=== PATIENT | male | born 1940 | race Caucasian/White ===

== ENCOUNTER → 2017-05-12 | Day surgery (SDC) | payer BC ==
[2017-04-21 14:01] VITALS: Ht 177.8 cm; Wt 104.5 kg
[~2017-05-12] VITALS: Ht 177.8 cm; Wt 104.5 kg
[~2017-05-12] MED LIST: 500ML BSS 0.3ML EPI 1:1000PF IRRIG ONE; ACETAMINOPHEN 325 MG TAB PO PRN; AMLO-110 PO; AMVISC PLAIN 0.8ML SYRINGE INT OCU ONE; AMVISC PLUS 0.8ML SYRINGE INT OCU ONE; ASPI81TA28 PO; ATOR-26 PO; ATROPINE SULFATE 0.1 MG/ML 5ML SYR IV PRN; BNC/4025 PO; BSS FLUSH ONE; BUPR-79 PO; DTR/5 PO; EpHEDrine SULFATE INJ 50 MG/ML AMP IV PRN; EpINEphrine INJ 1MG/ML AMP 1 MG/ML AMP ONE; FERR325T18 PO; HYDR200T5 PO; LACTATED RINGER'S 1000ML 500 ML IV SCH; LEVO200T6 PO; LIDOCAINE 3.5% OPH GEL PER APPLICATION CHARGE ONE; LIDOCAINE HCL 1% MPF 2 ML VIAL ONE; LORA-741 PO; METO25TA3 PO; METO50TA7 PO; MIDAZOLAM HCL 1 MG/ML 2ML VIAL ONE; MULT-506 PO; NTRGSL/4 UT; OCUCOAT 1 ML SOLN IO ONE; OMEG10007 PO; PANT40TA PO; POVIDONE-IODINE OP SOLN 30 ML BTL ONE; PROPARACAINE 0.5% OP SOLN PER DROP CHARGE OPL SCH; TOBRAMYCIN/DEXAMETHASONE OPH OINT PER APPLN CHARGE ONE
[2017-05-12] MEDS: PHENYLEPHRINE HCL 2.5% OP SOLN PER DROP CHARGE OPL SCH ×2 (09:23→09:33)
[2017-05-12] MEDS: TROPICAMIDE 1% OP SOLN PER DROP CHARGE OPL SCH ×2 (09:23→09:33)
[2017-05-12] MEDS: KETOROLAC 0.5% OP SOLN PER DROP CHARGE OPL SCH ×2 (09:24→09:35)
[2017-05-12] MEDS: CYCLOPENTOLATE HCL 1% OP SOLN PER DROP CHARGE OPL SCH ×2 (09:24→09:34)
[2017-05-12] MEDS: GATIFLOXACIN OP SOLN PER DROP CHARGE OPL SCH ×2 (09:26→09:36)
--- NOTE | 2017-05-12 09:58 | History & Physical Bridge - SC ---
H&P Re-Evaluation Bridge Note: I have examined the patient, reviewed the History & Physical and in the interval since the performance of the History & Physical I have noted the following changes of clinical significance: Diagnosis: Left Cataract Procedure: Left Cataract Removal with Lens Implant No changes noted
--- NOTE | 2017-05-12 10:30 | Discharge Instructions-SurgCtr ---
Discharge Instructions Date of Service May 12, 2017. Visit Reason for Visit: Left Cataract Discharge Discharge Diagnosis / Problem: cataract Discharge Goals Goal(s): Improve function Activity Recommendations Activity Limitations: per Instructions/Follow-up section Anesthesia . Post Anesthesia Instructions: If you have had General Anesthesia or IV Sedation: * Do not drive today. * Resume driving when surgeon permits. * Do not make important decisions or sign legal documents today. * Call surgeon for: 1. Temperature elevations greater than 101 degrees F. 2. Uncontrollable pain. 3. Excessive bleeding. 4. Persistent nausea and vomiting. 5. Medication intolerance (nausea, vomiting or rash). * For nausea and vomiting use only clear liquids such as: tea, soda, bouillon until nausea subsides, then gradually increase diet as tolerated. * If you have any concerns or questions, call your surgeon's office. If physician is unavailable and it is an emergency, call 911 or go to the nearest emergency room. . Diet Recommendations Home Diet: resume previous diet Procedures Procedures Performed: Left Cataract Phacoemulsification with Intraocular Lens Implant; Toric Lens Pending Studies Studies pending at discharge: no Medical Emergencies . Who to Call and When: Medical Emergencies: If at any time you feel your situation is an emergency, please call 911 immediately. . Non-Emergent Contact Non-Emergency issues call your: Exercise Specialist . . "Provider Documentation" section prepared by Newton Molina. .
[2017-05-12 10:32] VITALS: TEMP 36.2
--- NOTE | 2017-05-12 10:32 | [facility] Operative Report ---
Operative Report Date of Service May 12, 2017. Operative Report 1. PREOPERATIVE DIAGNOSIS: Cataract of the left eye. 2. POSTOPERATIVE DIAGNOSIS: Same. 3. PROCEDURE: Phacoemulsification with intraocular lens implantation of the left eye. SURGEON: Dr. Newton Molina. ANESTHESIA: Topical Lidocaine gel, 1% Non- Preserved intracameral Lidocaine, and monitored intravenous sedation. INDICATIONS FOR THE PROCEDURE: The patient is a 77 - year-old male with a history of cataract of the left eye causing significant visual impairment. The details of the proposed procedure were explained to the patient who asked appropriate questions and following discussion of all risks, benefits and alternatives agreed to have the procedure done. Patient had corneal astigmatism and therefore elected to have a toric lens placed. 4. OPERATION AND FINDINGS: DESCRIPTION OF PROCEDURE: After informed consent was obtained, the patient was placed in an upright position and the cornea was marked at 175 degrees using the Tamr corneal marking tool. The patient was brought to the Operating Room at the [facility]. The patient was placed in a supine position and then the left eye was prepped and draped in the usual sterile fashion for intraocular surgery. A drop of topical Lidocaine gel was placed in the operative eye. A wire lid speculum was then placed in the fornices. A corneal paracentesis was then created temporally. The Non-Preserved Lidocaine was then instilled into the anterior chamber. The anterior chamber was then pressurized with viscoelastic. A 2.0 mm clear corneal incision was then created temporally. A cystotome was inserted into the anterior chamber and used to create a tear in the anterior lens capsule. This capsular tear was then used to create a small flap and the flap was dragged in a counterclockwise direction in order to create a continuous curvilinear capsulorrhexis. Hydrodissection was accomplished with balanced salt solution. Phacoemulsification of the lens nucleus was then performed in a standard divide- and-conquer technique. The phaco time was 28 seconds with an average power of 11 %. The remaining cortical material was removed using irrigation aspiration. The capsular bag was then filled with viscoelastic. A Adan [id number] +19.5 diopters lens was then loaded into the injector and injected into the capsular bag. The lens was aligned with the previously made corneal husain. The remaining viscoelastic was removed with the irrigation aspiration handpiece. The wound was hydrated and then checked and found to be watertight. The intraocular pressure was checked and found to be adequate. The wire lid speculum was removed and the patient's face was cleaned and dried. TobraDex ointment was placed in the inferior fornix. The patient was discharged to the Recovery Room having tolerated the procedure well. There were no complications. The patient will be seen tomorrow in the office for follow-up. I attest to the content of the Intraoperative Record and any orders documented therein. Any exceptions are noted below.
[2017-05-12 10:55] VITALS: BP 126/73; PULSE 58; O2SAT 97
--- NOTE | 2017-05-12 11:05 | Anesthesiology Progress Note ---
Anesthesia Post Op Note Date & Time May 12, 2017 at 11:04 Vital Signs Pain Intensity: 0 Vital Signs Past 12 Hours Date Time Temp Pulse Resp B/P (MAP) Pulse Ox O2 Delivery O2 Flow Rate FiO2 05/12/17 10:55 58 18 126/73 (90) 97 Room Air 05/12/17 10:32 36.2 58 18 130/73 (92) 98 Room Air 05/12/17 09:07 36.9 59 22 131/78 (95) 98 Room Air Notes Mental Status: alert / awake / arousable, participated in evaluation Nausea / Vomiting: adequately controlled Pain: adequately controlled Airway Patency, RR, SpO2: stable & adequate BP & HR: stable & adequate Hydration State: stable & adequate Anesthetic Complications: no major complications apparent
== END | disposition home or self-care (01) ==
LOC: X.SURG 08:54
PROVIDERS: ATTEND Ophthalmology
DX: H26.9 Unspecified cataract (principal); G47.33 Obstructive sleep apnea (adult) (pediatric); K21.9 Gastro-esophageal reflux disease without esophagitis; I65.29 Occlusion and stenosis of unspecified carotid artery; K29.70 Gastritis, unspecified, without bleeding; R73.03 Prediabetes; M06.9 Rheumatoid arthritis, unspecified; E78.2 Mixed hyperlipidemia; F32.9 Major depressive disorder, single episode, unspecified; E66.9 Obesity, unspecified; I25.10 Atherosclerotic heart disease of native coronary artery without angina pectoris; N40.0 Benign prostatic hyperplasia without lower urinary tract symptoms; I35.0 Nonrheumatic aortic (valve) stenosis; Z95.1 Presence of aortocoronary bypass graft; Z79.82 Long term (current) use of aspirin

== ENCOUNTER → 2017-06-23 | Day surgery (SDC) | payer BC ==
[2017-05-19 14:41] VITALS: Ht 177.8 cm; Wt 104.5 kg
[~2017-06-23] VITALS: Ht 177.8 cm; Wt 104.5 kg
[~2017-06-23] MED LIST changes: -AMVISC PLAIN 0.8ML SYRINGE INT OCU ONE; -PROPARACAINE 0.5% OP SOLN PER DROP CHARGE OPL SCH; +PROPARACAINE 0.5% OP SOLN PER DROP CHARGE OPR SCH
[2017-06-23] MEDS: PHENYLEPHRINE HCL 2.5% OP SOLN PER DROP CHARGE OPR SCH ×2 (06:36→06:41)
[2017-06-23] MEDS: TROPICAMIDE 1% OP SOLN PER DROP CHARGE OPR SCH ×2 (06:37→06:42)
[2017-06-23] MEDS: CYCLOPENTOLATE HCL 1% OP SOLN PER DROP CHARGE OPR SCH ×2 (06:38→06:43)
[2017-06-23] MEDS: KETOROLAC 0.5% OP SOLN PER DROP CHARGE OPR SCH ×2 (06:39→06:44)
[2017-06-23] MEDS: GATIFLOXACIN OP SOLN PER DROP CHARGE OPR SCH ×2 (06:40→06:55)
--- NOTE | 2017-06-23 07:08 | History & Physical Bridge - SC ---
H&P Re-Evaluation Bridge Note: I have examined the patient, reviewed the History & Physical and in the interval since the performance of the History & Physical I have noted the following changes of clinical significance: No changes noted
--- NOTE | 2017-06-23 07:47 | [facility] Operative Report ---
Operative Report Date of Service Jun 23, 2017. Operative Report 1. PREOPERATIVE DIAGNOSIS: Cataract of the right eye. 2. POSTOPERATIVE DIAGNOSIS: Same. 3. PROCEDURE: Phacoemulsification with intraocular lens implantation of the right eye. SURGEON: Dr. Newton Molina. ANESTHESIA: Topical Lidocaine gel, 1% Non- Preserved intracameral Lidocaine, and monitored intravenous sedation. INDICATIONS FOR THE PROCEDURE: The patient is a 77 - year-old male with a history of cataract of the right eye causing significant visual impairment. The details of the proposed procedure were explained to the patient who asked appropriate questions and following discussion of all risks, benefits and alternatives agreed to have the procedure done. 4. OPERATION AND FINDINGS: DESCRIPTION OF PROCEDURE: After informed consent was obtained, the patient was brought to the Operating Room at the [facility]. The patient was placed in a supine position and then the right eye was prepped and draped in the usual sterile fashion for intraocular surgery. A drop of topical Lidocaine gel was placed in the operative eye. A wire lid speculum was then placed in the fornices. A corneal paracentesis was then created temporally. The Non-Preserved Lidocaine was then instilled into the anterior chamber. The anterior chamber was then pressurized with viscoelastic. A 2.0 mm clear corneal incision was then created temporally. A cystotome was inserted into the anterior chamber and used to create a tear in the anterior lens capsule. This capsular tear was then used to create a small flap and the flap was dragged in a counterclockwise direction in order to create a continuous curvilinear capsulorrhexis. Hydrodissection was accomplished with balanced salt solution. Phacoemulsification of the lens nucleus was then performed in a standard [id number] technique. The phaco time was 29 seconds with an average power of 9 %. The remaining cortical material was removed using irrigation aspiration. The capsular bag was then filled with viscoelastic. A Adan [id number] +18.5 diopters lens was then loaded into the injector and injected into the capsular bag. The remaining viscoelastic was removed with the irrigation aspiration handpiece. The wound was hydrated and then checked and found to be watertight. The intraocular pressure was checked and found to be adequate. The wire lid speculum was removed and the patient's face was cleaned and dried. TobraDex ointment was placed in the inferior fornix. The patient was discharged to the Recovery Room having tolerated the procedure well. There were no complications. The patient will be seen tomorrow in the office for follow-up. I attest to the content of the Intraoperative Record and any orders documented therein. Any exceptions are noted below.
--- NOTE | 2017-06-23 07:48 | Discharge Instructions-SurgCtr ---
Discharge Instructions Date of Service Jun 23, 2017. Visit Reason for Visit: Cataract Right Eye Discharge Discharge Diagnosis / Problem: cataract Discharge Goals Goal(s): Improve function Activity Recommendations Activity Limitations: per Instructions/Follow-up section Anesthesia . Post Anesthesia Instructions: If you have had General Anesthesia or IV Sedation: * Do not drive today. * Resume driving when surgeon permits. * Do not make important decisions or sign legal documents today. * Call surgeon for: 1. Temperature elevations greater than 101 degrees F. 2. Uncontrollable pain. 3. Excessive bleeding. 4. Persistent nausea and vomiting. 5. Medication intolerance (nausea, vomiting or rash). * For nausea and vomiting use only clear liquids such as: tea, soda, bouillon until nausea subsides, then gradually increase diet as tolerated. * If you have any concerns or questions, call your surgeon's office. If physician is unavailable and it is an emergency, call 911 or go to the nearest emergency room. . Diet Recommendations Home Diet: resume previous diet Procedures Procedures Performed: Right Cataract Phacoemulsification With Intraocular Lens Implant Pending Studies Studies pending at discharge: no Medical Emergencies . Who to Call and When: Medical Emergencies: If at any time you feel your situation is an emergency, please call 911 immediately. . Non-Emergent Contact Non-Emergency issues call your: Burial Vault Maker . . "Provider Documentation" section prepared by Newton Molina. .
[2017-06-23 07:50] VITALS: TEMP 36.4
--- NOTE | 2017-06-23 07:57 | Anesthesiology Progress Note ---
Anesthesia Post Op Note Date & Time Jun 23, 2017 at 07:56 Vital Signs Pain Intensity: 2.0 Vital Signs Past 12 Hours Date Time Temp Pulse Resp B/P (MAP) Pulse Ox O2 Delivery O2 Flow Rate FiO2 06/23/17 06:30 37 60 16 132/71 (91) 95 Room Air Notes Mental Status: alert / awake / arousable, participated in evaluation Nausea / Vomiting: adequately controlled Pain: adequately controlled Airway Patency, RR, SpO2: stable & adequate BP & HR: stable & adequate Hydration State: stable & adequate Anesthetic Complications: no major complications apparent
[2017-06-23 08:14] VITALS: BP 143/67; PULSE 60; O2SAT 95
== END | disposition home or self-care (01) ==
LOC: X.SURG 06:16
PROVIDERS: ATTEND Ophthalmology
DX: H26.9 Unspecified cataract (principal); E78.5 Hyperlipidemia, unspecified; G47.33 Obstructive sleep apnea (adult) (pediatric); E66.9 Obesity, unspecified; K21.9 Gastro-esophageal reflux disease without esophagitis; E78.6 Lipoprotein deficiency

== ENCOUNTER → 2017-07-21 | Outpatient (CLI) | payer BC ==
[~2017-07-21] VITALS: Ht 177.8 cm; Wt 107.0 kg
[~2017-07-21] MED LIST changes: -500ML BSS 0.3ML EPI 1:1000PF IRRIG ONE; -ACETAMINOPHEN 325 MG TAB PO PRN; -AMVISC PLUS 0.8ML SYRINGE INT OCU ONE; -ATROPINE SULFATE 0.1 MG/ML 5ML SYR IV PRN; -BSS FLUSH ONE; -EpHEDrine SULFATE INJ 50 MG/ML AMP IV PRN; -EpINEphrine INJ 1MG/ML AMP 1 MG/ML AMP ONE; -LACTATED RINGER'S 1000ML 500 ML IV SCH; -LIDOCAINE 3.5% OPH GEL PER APPLICATION CHARGE ONE; -LIDOCAINE HCL 1% MPF 2 ML VIAL ONE; -METO50TA7 PO; +METO50TA8 PO; -MIDAZOLAM HCL 1 MG/ML 2ML VIAL ONE; -OCUCOAT 1 ML SOLN IO ONE; -POVIDONE-IODINE OP SOLN 30 ML BTL ONE; -PROPARACAINE 0.5% OP SOLN PER DROP CHARGE OPR SCH; -TOBRAMYCIN/DEXAMETHASONE OPH OINT PER APPLN CHARGE ONE
[2017-07-21 15:13] VITALS: BP 99/62; PULSE 66; Ht 177.8 cm; Wt 107.0 kg
== END | disposition home or self-care (01) ==
LOC: C.NEUR 13:52
PROVIDERS: ATTEND Internal Medicine Pulmonary Disease
DX: G47.33 Obstructive sleep apnea (adult) (pediatric) (principal); I25.10 Atherosclerotic heart disease of native coronary artery without angina pectoris

== ENCOUNTER 2020-07-02 10:15 | Observation (INO) ==
[2020-07-02] MEDS ORDERED: CEFEPIME 2,000 MG/12.5 ML VIAL IV STA (11:25)
[2020-07-02] MEDS ORDERED: SODIUM CHLORIDE 0.9% 1000ML 1,000 ML IV SCH (11:30)
--- NOTE | 2020-07-02 11:38 | Electrocardiogram Report ---
Test Reason : Blood Pressure : / mmHG Vent. Rate : 060 BPM Atrial Rate : 060 BPM P-R Int : 298 ms QRS Dur : 088 ms QT Int : 440 ms P-R-T Axes : 000 064 067 degrees QTc Int : 440 ms Atrial-paced rhythm with prolonged AV conduction Abnormal ECG When compared with ECG of 19-JUN-2020 10:47, Non-specific change in ST segment in Lateral leads Confirmed by Mikel Chang ([id number]) on 07/02/2020 11:38:10 AM Referred By: REFERRED SELF Confirmed By:Orion Chang
[2020-07-02 12:06] LABS: Hemoglobin 8.1 g/dL (14.0-18.0); Mean Corpuscular Hemoglobin 30.3 pg (25-34); Mean Corpuscular Hgb Conc 33.8 g/dL (32-36); Mean Corpuscular Volume 89.9 fL (80-100); Mean Platelet Volume 10.7 fL (7.4-10.4); Platelet Count 100 K/uL (130-400); RDW Coefficient of Variation 13.4 % (11.5-14.5); RDW Standard Deviation 44.1 fL (36.4-46.3); Red Blood Count 2.67 M/uL (4.7-6.1); White Blood Count 2.66 K/uL (4.8-10.8)
--- NOTE | 2020-07-02 12:15 | XRay Report ---
XR chest 1V portable HISTORY: 80 years-old Male fever acute fever COMPARISON: Chest radiograph 06/19/2020 TECHNIQUE: Portable AP view of the chest FINDINGS: Cardiac silhouette is mildly enlarged. Prior median sternotomy with CABG. Calcified plaque of the tho racic aorta. Left subclavian pacer. Right IJ Smzamj-b-Wfyo catheter. No pneumothorax, pleural effusio n or overt pulmonary edema. Mild interstitial coarsening redemonstrated. Degenerative changes of the shoulders and spine. IMPRESSION: 1. No acute process. 2. Cardiomegaly with chronic interstitial coarsening. ACT 112: Negative or not required by law. The above report was generated using voice recognition software. It may contain grammatical, syntax o r spelling errors. Electronically signed by: aKl Borjas M.D. 07/02/2020 12:13 PM
[2020-07-02 12:18] LABS: Alanine Aminotransferase 150 U/L (12-78); Albumin Level 2.1 gm/dl (3.4-5.0); Aspartate Aminotransferase 56 U/L (15-37); BUN Creatinine Ratio 24.9 (10-20); Blood Urea Nitrogen 24 mg/dl (7-18); Calcium 8.6 mg/dl (8.5-10.1); Carbon Dioxide 24 mmol/L (21-32); Chloride 99 mmol/L (98-107); Est GFR (African American) 85.1; Est GFR (Non-African American) 73.4; Glucose 172 mg/dl (70-99); INR 1.2 (0.9-1.1); Partial Thromboplastin Ratio 1.4; Partial Thromboplastin Time 37.9 Seconds (21.0-31.0); Potassium 4.3 mmol/L (3.5-5.1); Prothrombin Time 12.7 Seconds (9.0-12.0); Sodium 130 mmol/L (136-145)
[2020-07-02 12:23] LABS: Albumin Globulin Ratio 0.6 (0.9-2); Alkaline Phosphatase 111 U/L (45-117); Bilirubin,Total 1.3 mg/dl (0.2-1); Globulin 3.6 gm/dl (2.5-4.0); Total Protein 5.7 gm/dl (6.4-8.2); Troponin I < 0.015 ng/ml (0-0.045)
[2020-07-02 12:24] LABS: Appearance Urine Clear (Clear); Bilirubin Urine Negative (Negative); Blood Urine Negative (Negative); Color Urine Dark Yellow; Glucose Urine UA Negative (Negative); Ketones Urine Negative (Negative); Leukocyte Esterase Urine Negative (Negative); Nitrite Urine Negative (Negative); Protein Urine Negative (Negative); Specific Gravity Urine 1.009 (1.000-1.030); Urobilinogen Urine Negative (Negative); pH Urine 6.5 (4.5-7.5)
[2020-07-02 13:05] LABS: ALC (manual) 0.23 K/uL (1.2-3.4); ANC (manual) 2.43 K/uL (1.4-6.5); Lymphocytes # (manual) 0.23 K/uL (1.2-3.4); Lymphocytes % (manual) 8.7 %; Neutrophils # (manual) 2.43 K/uL (1.4-6.5); Neutrophils % (manual) 91.3 %
--- NOTE | 2020-07-02 13:28 | Ultrasound Report ---
BILATERAL LOWER EXTREMITY VENOUS DOPPLER HISTORY: DVT COMPARISON STUDY: None. FINDINGS: There is normal compressibility, flow, and augmentation within the bilateral lower extremit y deep venous systems. IMPRESSION: No DVT within the right or left lower extremity. ACT 112: Negative or not required by law. Electronically signed by: Kal Borjas M.D. 07/02/2020 1:27 PM
[2020-07-02] MEDS ORDERED: BACLOFEN 10 MG TAB PO ONE (16:42)
--- NOTE | 2020-07-02 16:53 | History & Physical Report ---
Date of Service July 02, 2020 Assessment & Plan (1) Hypotension: Pt has been normo-tensive since arrival to the ED, although initially it was borderline normal Holding HTN meds and monitor Possibly related to recent chemo Baclofen can also cause hypoTN, but pt did not take any doses today Received IVF in the ED and now in the 130s, will hold on further IVF given hx (2) Redness and swelling of lower leg: Appears related to contact with urine soaked Depends in the setting of chemo Given cefepime dose in the ED, will hold on further for now B/L LE US neg for DVT Blood cx pending WBC low in the setting of chemo Procal and lactic acid levels WNL Hem/onc c/s pending for further input related to chemo skin reactions (3) Anemia: 8.1 on admission, most recently was 9.8 Monitor Hemoccult pending (4) Elevated LFTs: Bile stent in place Bili is 1.3 with no bili in urine Monitor LFTs (5) Port-A-Cath in place: Checked by Dr. Elam today and no current issues (6) Anxiety: continue home meds (7) Depression: continue home meds (8) Pancreatic adenocarcinoma: Recently started weekly chemo, last dose was 06/28 (9) Hypertension: Holding benicar and metoprolol given hypoTN (10) Hypothyroidism: continue home meds (11) Diabetes: States pre-DM No hx of medication use (12) Hyperlipidemia: continue home meds (13) GERD (gastroesophageal reflux disease): continue home meds (14) Coronary artery disease: CABG 20 yrs ago Aspirin 81mg (15) BPH w urinary obs/LUTS: continue home meds (16) Aortic stenosis: Monitor with IVF (17) Rheumatoid arthritis: Plaquenil (18) Obstructive sleep apnea: (19) Pacemaker: (20) Intractable hiccups: Recently started on baclofen Hx of needing hospitalization for hiccups lasting over 3 days many years ago (21) DVT prophylaxis: Lovenox, SCDs for DVT proph Pt notes that he is full code, but "nothing heroic". States no mcfp life support, feeding tubes, etc. is present and agrees. History of Present Illness Primary Care Provider: Shemar Gonzalez 80 y/o M who was sent here from Dr. Elam's office for a BP 88/36 upon arrival to the office. Pt was going to see Dr. Elam for a routine follow up on his recently placed port. He was very weak upon arrival and required assistance to get from the car inside. His BP was checked and it was noted as above. Pt states that he had his second dose of chemo for pancreatic cancer on 06/28. His first dose was the prior. He states that since starting chemo, he has felt overall more weak. He has had a few episodes where he was standing and felt he just could no longer support his weight, causing collapse. No LOC or pre-syncope with this. Since the second dose of chemo, his states that he has needed more help with things like getting into and out of the car. He has needed more support with walking. It was also noted Thursday night that pt had a rash on his LE. It has continued to spread. It is worse on the lower LE, but there is a light rash on the upper thighs as well. It does not itch. There is b/l LE swelling that started around the same time, so it feels tight, but no other pain. Pt wears Depends and they feel this is from having skin contact with urine when he pulls the Depends up and down as they were told to not have direct contact with his urine or feces since starting chemo. Pt states he otherwise feels fine. Pt denies fever, SOB, chest pain, abd pain, n/v/c/d. He has been eating without issue. Plan for pt's pancreatic cancer is chemo to shrink the mass, then surgical removal, then further chemo. Pt does have a bile duct stent in place. He had very yellow urine prior to the stent placement. states it is a bit yellow now, but nothing like pre-stent. Pt was recently started on baclofen for issues with intractable hiccups. He has taken 3 doses of this, none today. Allergies Allergy/AdvReac Type Severity Reaction Status Date / Time paroxetine [From Paxil] Allergy Unknown Unknown Verified 07/02/20 09:13 ranolazine [From Ranexa] Allergy Unknown URINARY Verified 07/02/20 09:13 LEAKING PROBLEMS PAULINO Inhibitors AdvReac Mild COUGH Verified 07/02/20 09:13 Sulfa (Sulfonamide AdvReac Mild SICK IN Verified 07/02/20 09:13 Antibiotics) STOMACH tamsulosin AdvReac Mild DIZZINESS Verified 07/02/20 09:13 Home Medications Medication Instructions Recorded Confirmed Type atorvastatin 40 mg PO HS 02/05/18 07/02/20 History hydroxychloroquine 200 mg PO QAM 02/05/18 07/02/20 History lorazepam 0.5 mg PO HS PRN 02/05/18 07/02/20 History metoprolol succinate 1.5 tab PO QAM 02/05/18 07/02/20 History pantoprazole [Protonix] 40 mg PO HS 02/05/18 07/02/20 History vitamin B complex 1 tab PO QAM 02/05/18 07/02/20 History levothyroxine 200 mcg capsule 200 mcg PO QAM 06/12/20 07/02/20 History olmesartan 40 0.5 tab PO QAM tab 06/12/20 07/02/20 History mg-hydrochlorothiazide 12.5 mg tablet omega-3 acid ethyl esters 1 gram 1 cap PO QAM 06/12/20 07/02/20 History capsule sertraline 25 mg tablet 25 mg PO HS 06/12/20 07/02/20 History aspirin 81 mg PO QAM 06/14/20 07/02/20 History baclofen 10 mg PO DAILY 07/02/20 07/02/20 History ferrous gluconate 324 mg PO QAM 07/02/20 07/02/20 History silodosin 4 mg PO DAILY 07/02/20 07/02/20 History Past Med/Surg History Medical History Aortic stenosis MODERATE PER 05/2019 ECHO BPH w urinary obs/LUTS Cancer PANCREATIC CANCER Carotid stenosis History of known severe high-grade external carotid stenosis with less than 50% bilateral internal carotid artery stenosis per 02/2020 cardio note Chest pain NO RECENT ISSUES PER NURSING INTERVIEW CHF (congestive heart failure) Coronary artery disease S/p 4 vessel CABG Diabetes DIET MANAGED GERD (gastroesophageal reflux disease) Hyperlipidemia Hypertension Hypothyroidism Obstructive sleep apnea CPAP-OCC USE Pacemaker PLACED 2016- BIOTRONIK>BRADYCARDIA (CHRONOTROPIC INCOMPETENCE)/FOLLOWED BY DR. COPPOLA Rheumatoid arthritis Surgical History Cardiac pacemaker in situ Difficult airway for intubation HEART CATH PROCEDURE- CATH PROCEDURES FOR 2009, 2011, 2015 REVIEWED- NO DOCUMENTATION OF AIRWAY ISSUES History of anesthesia reaction "GROGGY FOR A FEW DAYS" History of cardiac cath NO STENTS History of cataract surgery LEFT/RIGHT History of colonoscopy History of coronary artery bypass graft X 4 VESSELS 1999 History of esophagogastroduodenoscopy (EGD) History of tonsillectomy History of tooth extraction GUM SURGERY Port-A-Cath in place (06/19/20) Insertion of Mediport with Fluoroscopy Dr. Elam 06/19/2020 Family History Family/Other Family history of diabetes mellitus PATERNAL AUNT Father Heart disease Brother Cancer Mother Cancer Son Family history of diabetes mellitus Other Coronary heart disease Obstructive sleep apnea Social History (Updated 07/02/20 @ 16:57 by Jodie Thakkar DO) Smoking Status: Former smoker Years Smoked: 5; Number of Years Since Quit: 50; Second Hand Exposure: No; Hx Alcohol Use: No Hx Substance Use: No Preferred Language: Spanish Communication Ability: Effective Hvac Design Mechanical Engineer Required: No Beliefs That Will Affect Care: None marital status: Current Living Situation: Spouse current occupational status: retired current occupation: Retired [employer]er Feels Safe at Home: Yes Assistive Devices: Glasses Review of Systems Review of Systems: Pertinent positives and negatives reviewed in HPI--all others negative Physical Exam Constitutional: WD/WN, vitals as above Eyes: normal visual gonzalez by confrontation and + anicteric sclerae Neck: normal visual inspection and trachea midline Respiratory: normal respiratory effort, lungs clear to auscultation Cardiovascular: Rate/Rhythm: regular rate and regular rhythm Gastrointestinal (Abdomen): Inspection/Auscultation: abdomen not distended Percussion/Palpation: abdomen soft; abdomen nontender Musculoskeletal: Head/Neck/Chest: normocephalic and head atraumatic negative for edema, peripheral pulses intact Skin: b/l LE rash that is most pronounced along b/l lower LE. Lines drawn around this dark red, flat rash Automatic Vulcanizing Lead Operator pink rash noted along thighs b/l, dashed lines drawn along this region. Of note, this is a very angular rash on the R later thigh that states is the same as the outline of his pants pocket Neurologic: awake; not confused Speech / Cognition: normal speech Psychiatric: A+Ox3, euthymic affect Results & Data Results & Data ([facility]) Vital Signs (Past 12 Hours) Vital Signs Temp Pulse Resp BP Pulse Ox 07/02/20 15:00 60 16 07/02/20 14:31 61 16 152/99 H 07/02/20 14:30 60 14 07/02/20 13:30 60 14 136/49 L 98 07/02/20 13:28 92/69 L 07/02/20 12:30 60 19 121/52 L 99 07/02/20 12:03 60 20 124/51 L 96 07/02/20 11:53 105/48 L 07/02/20 11:51 60 22 122/43 L 07/02/20 11:49 62 19 106/56 L 07/02/20 11:30 60 20 125/48 L 07/02/20 11:00 61 21 127/49 L 99 07/02/20 10:49 60 25 H 100 07/02/20 10:44 60 26 H 111/45 L 99 07/02/20 10:23 36.1 C L 60 20 110/58 L 97 Diagnostic Findings CXR: neg for acute ECG Additional Comments: Prolonged AV conduction Code Status & VTE Plan Code Status Full code, although pt states no prolonged mechanical life support, feeding tubes, etc VTE Prophylaxis Plan VTE Prophylaxis will be ordered: Yes PG Care Time/CCT Total # of Minutes Spent Total Time Spent with Patient: Total time spent is greater than 50% in coordination of care (as documented) at patient's floor/unit and/or counseling patient: Coding Level of Care Code 83347 OBS Care - Level 3 Diagnoses Hypotension I95.9 Redness and swelling of lower leg M79.89; R23.8 Anemia D64.9 Elevated LFTs R79.89 Port-A-Cath in place Z95.828 Anxiety F41.9 Depression F32.9 Pancreatic adenocarcinoma C25.9 Hypertension I10 Hypothyroidism E03.9 Diabetes E11.9 Hyperlipidemia E78.5 GERD (gastroesophageal reflux disease) K21.9 Coronary artery disease I25.10 BPH w urinary obs/LUTS N40.1; N13.8 Aortic stenosis I35.0 Rheumatoid arthritis M06.9 Obstructive sleep apnea G47.33 Pacemaker Z95.0 Intractable hiccups R06.6 DVT prophylaxis Z29.9
[2020-07-02] MEDS ORDERED: BACLOFEN 10 MG TAB ONE (17:54)
[2020-07-02] MEDS ORDERED: MAGNESIUM HYDROXIDE SUSP 30 ML UDC PO PRN (19:30)
[2020-07-02] MEDS ORDERED: BACLOFEN 10 MG TAB PO PRN ×2 (19:30→21:15)
[2020-07-02] MEDS ORDERED: ACETAMINOPHEN 325 MG TAB PO PRN (19:30)
[2020-07-02] MEDS ORDERED: ONDANSETRON INJ 2 MG/ML 2 ML VIAL IV PRN (19:30)
[2020-07-02] MEDS ORDERED: LORazepam 0.5 MG TAB PO PRN (19:30)
[2020-07-02 20:35] LABS: Albumin Level 2.2 gm/dl (3.4-5.0); Bilirubin Direct 0.6 mg/dl (0-0.2); Bilirubin,Total 1.1 mg/dl (0.2-1); Total Protein 5.9 gm/dl (6.4-8.2)
[2020-07-02] MEDS: SERTRALINE HCL 50 MG TABLET PO SCH (20:52)
[2020-07-02] MEDS: ATORVASTATIN 40 MG TAB PO SCH (20:54)
[2020-07-02] MEDS: PANTOprazole 40 MG TAB PO SCH (20:54)
[2020-07-03] MEDS ORDERED: HEPARIN 100 UNIT/ML 5ML FLUSH FLUSH PRN (00:13)
[2020-07-03 06:11] LABS: Hematocrit (blood only) 22.9 % (42-52); Hemoglobin 7.8 g/dL (14.0-18.0); Mean Corpuscular Hemoglobin 30.7 pg (25-34); Mean Corpuscular Hgb Conc 34.1 g/dL (32-36); Mean Corpuscular Volume 90.2 fL (80-100); RDW Coefficient of Variation 13.6 % (11.5-14.5); RDW Standard Deviation 44.8 fL (36.4-46.3); Red Blood Count 2.54 M/uL (4.7-6.1); White Blood Count 2.08 K/uL (4.8-10.8)
[2020-07-03] MEDS: LEVOTHYROXINE SODIUM 200 MCG TABLET PO SCH (06:15)
[2020-07-03 06:31] LABS: Mean Platelet Volume 11.2 fL (7.4-10.4); Platelet Count 98 K/uL (130-400)
[2020-07-03 06:32] LABS: Eosinophils # (auto) 0.02 K/uL (0-0.5); Giant Platelets 2+; Immature Granulocytes # (auto) 0.01 K/uL (0.00-0.02); Immature Granulocytes % (auto) 0.5 %; Lymphocytes # (auto) 0.58 K/uL (1.2-3.4); Lymphocytes % (auto) 27.9 %; Monocytes # (auto) 0.01 K/uL (0.11-0.59); Monocytes % (auto) 0.5 %; Neutrophils # (auto) 1.46 K/uL (1.4-6.5); Neutrophils % (auto) 70.1 %; Platelet Estimate Decreased (Normal)
[2020-07-03 06:35] LABS: Albumin Level 1.9 gm/dl (3.4-5.0); BUN Creatinine Ratio 21.3 (10-20); Bilirubin Direct 0.5 mg/dl (0-0.2); Calcium 8.5 mg/dl (8.5-10.1); Creatinine Clr Calc Pharmacy 76.5 ml/min; Est GFR (Non-African American) 81.1; Potassium 4.3 mmol/L (3.5-5.1)
[2020-07-03 06:38] LABS: Total Protein 5.5 gm/dl (6.4-8.2)
[2020-07-03] MEDS: ENOXAPARIN INJ 40 MG/0.4 ML SYR SQ SCH (08:08)
[2020-07-03] MEDS: VITAMIN B COMPLEX TAB PO SCH (08:09)
[2020-07-03] MEDS: ASPIRIN 81 MG ECTAB PO SCH (08:09)
[2020-07-03] MEDS: HYDROXYCHLOROQUINE SULFATE 200 MG TAB PO SCH (08:09)
[2020-07-03] MEDS: OMEGA-3 (PURIFIED FISH OIL) 1 GM CAP PO SCH (08:09)
[2020-07-03] MEDS: FERROUS GLUCONATE 324 MG TAB PO SCH (08:09)
--- NOTE | 2020-07-03 08:10 | Hospitalist Progress Note ---
Date of Service July 03, 2020 Assessment & Plan (1) Hypotension: * Pt has been normo-tensive since arrival to the ED, although borderline normal * Holding HTN meds and monitor * Possibly related to recent chemo * Baclofen can also cause hypoTN, but pt did not take any doses [employer] * Received IVF in the ED and now in the 130s, will hold on further IVF given hx -- did appear dry on examination. Improving on AM labs and clinically. * Patient also with low hgb today at 7.8 -- discussed with Dr. Bonilla and will transfuse 1 unit and repeat CBC in AM * BP improved -- currently 125/52 (2) Redness and swelling of lower leg: * Appears related to contact with urine soaked Depends in the setting of chemo * Given cefepime dose in the ED * B/L LE US neg for DVT * Blood cx pending * WBC low in the setting of chemo * Procal 0.32, lactic acid level WNL * Hem/onc c/s pending for further input related to chemo skin reactions -- rec for Dermatology evaluation * Restarted Cefepime given improvement since admission with dose in the ER * Will obtain MRSA nasal swab and add Dapto if positive * Dermatology consulted -- spoke with Dr. Dawson who will see patient this afternoon (3) Anemia: * 8.1 on admission, most recently was 9.8. Likely related to chemo * Monitor * Hemoccult pending * Hgb 7.8 on AM labs -- will order 1 unit PRBC * CBC in AM (4) Elevated LFTs: * Bile stent in place * Bili is 1.3 with no bili in urine * Monitor LFTs -- improving (5) Port-A-Cath in place: * Checked by Dr. Elam 07/02 and no current issues (6) Anxiety: * continue home meds -- sertraline 25mg daily and lorazepam prn (7) Depression: * continue home meds as above (8) Pancreatic adenocarcinoma: * Recently started weekly chemo, last dose was 06/28 * Dr Bonilla on consult as above (9) Hypertension: * Holding benicar and metoprolol given hypoTN * BP 125/52 * Continue to monitor (10) Hypothyroidism: * continue home levothyroxine 200mcg daily * Check TSH with AM labs (11) Diabetes: * States pre-DM * No hx of medication use * Check A1c with Am labs (12) Hyperlipidemia: * continue home atorvastatin 40mg (13) GERD (gastroesophageal reflux disease): * continue home protonix 40mg (14) Coronary artery disease: * CABG 20 yrs ago * Aspirin 81mg * Holding BB, PAULINO (15) BPH w urinary obs/LUTS: * continue home meds (16) Aortic stenosis: * Monitor with IVF * Euvolemic on exam (17) Rheumatoid arthritis: * Plaquenil 200 daily * Follows with Dr. Lauren (18) Obstructive sleep apnea: * CPAP ordered HS -- he states he tries to use this but does sometimes not put it back on at night due to frequently getting up to urinate (19) Pacemaker: noted (20) Intractable hiccups: * Recently started on baclofen * Hx of needing hospitalization for hiccups lasting over 3 days many years ago * Thorazine 12.5mg dose x [address] Bonilla --25mg was too much (21) DVT prophylaxis: * Lovenox, SCDs for DVT proph Pt notes that he is full code, but "nothing heroic". States no mcfp life support, feeding tubes, etc. is present and agrees. Admission and Anticipated Discharge Date Admission Date: July 02, 2020 Supervising Physician Co-Signing Physician Notes PA Supervision Note: I personally saw and examined the patient. I verified all alvarado points and agree with SHANNA Williamson with the following exceptions and/or additions: Pt seen and consented for PRBCs. Reports leg rash and leg swelling started about 4-5 days ago, not itchy but some pain in legs. No fevers/chills/sweats at home. Otherwise feeling much better than yesterday when he felt weak and lightheaded. BPs improved. Is drinking and eating. Has hiccups, requests thorazine. Discussed potential interaction between thorazine and HCQ but he really would like thorazine as it usually cures his hiccups. VSS NAD, AAOx3 RRR no mgr CTAB no wcr ABd +BS soft NT ND Ext 2-3+ pitting edema bilat with purple, nonblanching macular rash in patches on anterior legs, no rash anywhere else on body, no erythema, no vesicles 80 yo M here with hypotension liekly related to anemia and dehydration from recent chemo, also with abnormal rash and LE edema. Dopplers neg for DVT, likely from low albumin in setting of chemotherapy. No need for abx Appreciate DERM consult Transfuse 1 unit PRBCs and follow CBC Consult Nutrition to assist with improving albumin Subjective Patient evaluated this morning. States he is feeling better. No fever, chills, chest pain, shortness of breath, abdominal pain, nausea, vomtiing. Complaints of hiccups. Willing to trial low dose thorazine. On plaquenil for RA and follows locally with Dr. Lauren and has been for past 3 years. Discussed low blood counts and transfusing 1 unit today. Patient inquiring about d/c but willing to wait until tomorrow. Review of Systems Review of Systems: All systems reviewed & are unremarkable except as noted in HPI & below Physical Exam Constitutional: WD/WN, vitals as above Eyes: normal visual gonzalez by confrontation and + anicteric sclerae ENMT: mmm Neck: normal visual inspection and trachea midline Respiratory: normal respiratory effort, lungs clear to auscultation Cardiovascular: Rate/Rhythm: regular rate and regular rhythm Chest (Breasts): Additional Comments: R a-port present Gastrointestinal (Abdomen): Inspection/Auscultation: abdomen not distended Percussion/Palpation: abdomen soft; abdomen nontender Musculoskeletal: Head/Neck/Chest: normocephalic and head atraumatic Skin: erythema, purple/darkened area to b/l LE, swelling-- within markings, receded tender to palpation NVI old healed scabbed area 1cm diameter to left lateral anterior srivastava no other obvious opening/drainage Neurologic: awake; not confused Speech / Cognition: normal speech Psychiatric: A+Ox3, euthymic affect Lymphatic: no cervical or axillary lymphadenopathy Results & Data Results & Data ([facility]) Vital Signs (Past 12 Hours) Vital Signs Temp Pulse Resp BP Pulse Ox 07/03/20 08:07 36.8 C 60 18 125/52 L 99 07/03/20 04:53 36.7 C 92 H 16 115/43 L 98 07/02/20 23:33 36.6 C 57 L 16 129/65 95 07/02/20 20:59 100/55 L Laboratory Results 07/03/20 07/03/20 07/02/20 Range/Units 05:28 05:28 19:51 WBC 2.08 L (4.8-10.8) K/uL RBC 2.54 L (4.7-6.1) M/uL Hgb 7.8 L (14.0-18.0) g/dL Hct 22.9 L (42-52) % MCV 90.2 (80-100) fL MCH 30.7 (25-34) pg MCHC 34.1 (32-36) g/dL RDW Std Deviation 44.8 (36.4-46.3) fL RDW Coeff of Iris 13.6 (11.5-14.5) % Plt Count 98 L (130-400) K/uL MPV 11.2 H (7.4-10.4) fL Immature Gran % (Auto) 0.5 % Neut % (Auto) 70.1 % Lymph % (Auto) 27.9 % Bailey % (Auto) 0.5 % Eos % (Auto) 1.0 % Baso % (Auto) 0.0 % Neut # (Auto) 1.46 (1.4-6.5) K/uL Lymph # (Auto) 0.58 L (1.2-3.4) K/uL Bailey # (Auto) 0.01 L (0.11-0.59) K/uL Eos # (Auto) 0.02 (0-0.5) K/uL Baso # (Auto) 0.00 (0-0.2) K/uL Immature Gran # (Auto) 0.01 (0.00-0.02) K/uL Neutrophils % (Manual) % Lymphocytes % (Manual) % Neutrophils # (Manual) (1.4-6.5) K/uL Total Absolute Neuts (1.4-6.5) K/uL Lymphocytes # (Manual) (1.2-3.4) K/uL Total Abs Lymphocytes (1.2-3.4) K/uL Hyposegmented Neuts Platelet Estimate Decreased L (Normal) Giant Platelets 2+ PT (9.0-12.0) Seconds INR (0.9-1.1) APTT (21.0-31.0) Seconds PTT Ratio Sodium 133 L (136-145) mmol/L Potassium 4.3 (3.5-5.1) mmol/L Chloride 102 (98-107) mmol/L Carbon Dioxide 25 (21-32) mmol/L Anion Gap 6.0 (3-11) BUN 19 H (7-18) mg/dl Creatinine 0.88 (0.6-1.4) mg/dl Est Cr Clr Drug Dosing 76.5 Est GFR ( Amer) 94.0 Est GFR (Non-Af Amer) 81.1 BUN/Creatinine Ratio 21.3 H (10-20) Glucose 171 H (70-99) mg/dl Lactate (0.4-2.0) mmol/L Calcium 8.5 (8.5-10.1) mg/dl Total Bilirubin 1.0 1.1 H (0.2-1) mg/dl Direct Bilirubin 0.5 H 0.6 H (0-0.2) mg/dl AST 39 H 49 H (15-37) U/L ALT 114 H 141 H (12-78) U/L Alkaline Phosphatase 108 113 (45-117) U/L Troponin I (0-0.045) ng/ml Total Protein 5.5 L 5.9 L (6.4-8.2) gm/dl Albumin 1.9 L 2.2 L (3.4-5.0) gm/dl Globulin (2.5-4.0) gm/dl Albumin/Globulin Ratio (0.9-2) Procalcitonin (0-0.5) ng/ml Urine Color Urine Appearance (Clear) Urine pH (4.5-7.5) Ur Specific [place] (1.000-1.030) Urine Protein (Negative) Urine Glucose (UA) (Negative) Urine Ketones (Negative) Urine Blood (Negative) Urine Nitrite (Negative) Urine Bilirubin (Negative) Urine Urobilinogen (Negative) Ur Leukocyte Esterase (Negative) COVID-19 Eval Order SARS-CoV-2, RNA, NAAT (NEGATIVE) 07/02/20 07/02/20 07/02/20 Range/Units 16:15 16:15 12:00 WBC (4.8-10.8) K/uL RBC (4.7-6.1) M/uL Hgb (14.0-18.0) g/dL Hct (42-52) % MCV (80-100) fL MCH (25-34) pg MCHC (32-36) g/dL RDW Std Deviation (36.4-46.3) fL RDW Coeff of Iris (11.5-14.5) % Plt Count (130-400) K/uL MPV (7.4-10.4) fL Immature Gran % (Auto) % Neut % (Auto) % Lymph % (Auto) % Bailey % (Auto) % Eos % (Auto) % Baso % (Auto) % Neut # (Auto) (1.4-6.5) K/uL Lymph # (Auto) (1.2-3.4) K/uL Bailey # (Auto) (0.11-0.59) K/uL Eos # (Auto) (0-0.5) K/uL Baso # (Auto) (0-0.2) K/uL Immature Gran # (Auto) (0.00-0.02) K/uL Neutrophils % (Manual) % Lymphocytes % (Manual) % Neutrophils # (Manual) (1.4-6.5) K/uL Total Absolute Neuts (1.4-6.5) K/uL Lymphocytes # (Manual) (1.2-3.4) K/uL Total Abs Lymphocytes (1.2-3.4) K/uL Hyposegmented Neuts Platelet Estimate (Normal) Giant Platelets PT (9.0-12.0) Seconds INR (0.9-1.1) APTT (21.0-31.0) Seconds PTT Ratio Sodium (136-145) mmol/L Potassium (3.5-5.1) mmol/L Chloride (98-107) mmol/L Carbon Dioxide (21-32) mmol/L Anion Gap (3-11) BUN (7-18) mg/dl Creatinine (0.6-1.4) mg/dl Est Cr Clr Drug Dosing Est GFR ( Amer) Est GFR (Non-Af Amer) BUN/Creatinine Ratio (10-20) Glucose (70-99) mg/dl Lactate (0.4-2.0) mmol/L Calcium (8.5-10.1) mg/dl Total Bilirubin (0.2-1) mg/dl Direct Bilirubin (0-0.2) mg/dl AST (15-37) U/L ALT (12-78) U/L Alkaline Phosphatase (45-117) U/L Troponin I (0-0.045) ng/ml Total Protein (6.4-8.2) gm/dl Albumin (3.4-5.0) gm/dl Globulin (2.5-4.0) gm/dl Albumin/Globulin Ratio (0.9-2) Procalcitonin (0-0.5) ng/ml Urine Color Dark Yellow Urine Appearance Clear (Clear) Urine pH 6.5 (4.5-7.5) Ur Specific [place] 1.009 (1.000-1.030) Urine Protein Negative (Negative) Urine Glucose (UA) Negative (Negative) Urine Ketones Negative (Negative) Urine Blood Negative (Negative) Urine Nitrite Negative (Negative) Urine Bilirubin Negative (Negative) Urine Urobilinogen Negative (Negative) Ur Leukocyte Esterase Negative (Negative) COVID-19 Eval [facility] SARS-CoV-2, RNA, NAAT NEGATIVE (NEGATIVE) 07/02/20 07/02/20 07/02/20 Range/Units 11:45 11:45 11:45 WBC (4.8-10.8) K/uL RBC (4.7-6.1) M/uL Hgb (14.0-18.0) g/dL Hct (42-52) % MCV (80-100) fL MCH (25-34) pg MCHC (32-36) g/dL RDW Std Deviation (36.4-46.3) fL RDW Coeff of Iris (11.5-14.5) % Plt Count (130-400) K/uL MPV (7.4-10.4) fL Immature Gran % (Auto) % Neut % (Auto) % Lymph % (Auto) % Bailey % (Auto) % Eos % (Auto) % Baso % (Auto) % Neut # (Auto) (1.4-6.5) K/uL Lymph # (Auto) (1.2-3.4) K/uL Bailey # (Auto) (0.11-0.59) K/uL Eos # (Auto) (0-0.5) K/uL Baso # (Auto) (0-0.2) K/uL Immature Gran # (Auto) (0.00-0.02) K/uL Neutrophils % (Manual) % Lymphocytes % (Manual) % Neutrophils # (Manual) (1.4-6.5) K/uL Total Absolute Neuts (1.4-6.5) K/uL Lymphocytes # (Manual) (1.2-3.4) K/uL Total Abs Lymphocytes (1.2-3.4) K/uL Hyposegmented Neuts Platelet Estimate (Normal) Giant Platelets PT 12.7 H (9.0-12.0) Seconds INR 1.2 H (0.9-1.1) APTT 37.9 H (21.0-31.0) Seconds PTT Ratio 1.4 Sodium (136-145) mmol/L Potassium (3.5-5.1) mmol/L Chloride (98-107) mmol/L Carbon Dioxide (21-32) mmol/L Anion Gap (3-11) BUN (7-18) mg/dl Creatinine (0.6-1.4) mg/dl Est Cr Clr Drug Dosing Est GFR ( Amer) Est GFR (Non-Af Amer) BUN/Creatinine Ratio (10-20) Glucose (70-99) mg/dl Lactate 1.2 (0.4-2.0) mmol/L Calcium (8.5-10.1) mg/dl Total Bilirubin (0.2-1) mg/dl Direct Bilirubin (0-0.2) mg/dl AST (15-37) U/L ALT (12-78) U/L Alkaline Phosphatase (45-117) U/L Troponin I (0-0.045) ng/ml Total Protein (6.4-8.2) gm/dl Albumin (3.4-5.0) gm/dl Globulin (2.5-4.0) gm/dl Albumin/Globulin Ratio (0.9-2) Procalcitonin 0.32 (0-0.5) ng/ml Urine Color Urine Appearance (Clear) Urine pH (4.5-7.5) Ur Specific [place] (1.000-1.030) Urine Protein (Negative) Urine Glucose (UA) (Negative) Urine Ketones (Negative) Urine Blood (Negative) Urine Nitrite (Negative) Urine Bilirubin (Negative) Urine Urobilinogen (Negative) Ur Leukocyte Esterase (Negative) COVID-19 Eval Order SARS-CoV-2, RNA, NAAT (NEGATIVE) 07/02/20 07/02/20 Range/Units 11:45 11:45 WBC 2.66 L (4.8-10.8) K/uL RBC 2.67 L (4.7-6.1) M/uL Hgb 8.1 L (14.0-18.0) g/dL Hct 24.0 L (42-52) % MCV 89.9 (80-100) fL MCH 30.3 (25-34) pg MCHC 33.8 (32-36) g/dL RDW Std Deviation 44.1 (36.4-46.3) fL RDW Coeff of Iris 13.4 (11.5-14.5) % Plt Count 100 L (130-400) K/uL MPV 10.7 H (7.4-10.4) fL Immature Gran % (Auto) % Neut % (Auto) % Lymph % (Auto) % Bailey % (Auto) % Eos % (Auto) % Baso % (Auto) % Neut # (Auto) (1.4-6.5) K/uL Lymph # (Auto) (1.2-3.4) K/uL Bailey # (Auto) (0.11-0.59) K/uL Eos # (Auto) (0-0.5) K/uL Baso # (Auto) (0-0.2) K/uL Immature Gran # (Auto) (0.00-0.02) K/uL Neutrophils % (Manual) 91.3 % Lymphocytes % (Manual) 8.7 % Neutrophils # (Manual) 2.43 (1.4-6.5) K/uL Total Absolute Neuts 2.43 (1.4-6.5) K/uL Lymphocytes # (Manual) 0.23 L (1.2-3.4) K/uL Total Abs Lymphocytes 0.23 L (1.2-3.4) K/uL Hyposegmented Neuts 1+ Platelet Estimate (Normal) Giant Platelets PT (9.0-12.0) Seconds INR (0.9-1.1) APTT (21.0-31.0) Seconds PTT Ratio Sodium 130 L (136-145) mmol/L Potassium 4.3 (3.5-5.1) mmol/L Chloride 99 (98-107) mmol/L Carbon Dioxide 24 (21-32) mmol/L Anion Gap 7.0 (3-11) BUN 24 H (7-18) mg/dl Creatinine 0.97 (0.6-1.4) mg/dl Est Cr Clr Drug Dosing Not Reportable Est GFR ( Amer) 85.1 Est GFR (Non-Af Amer) 73.4 BUN/Creatinine Ratio 24.9 H (10-20) Glucose 172 H (70-99) mg/dl Lactate (0.4-2.0) mmol/L Calcium 8.6 (8.5-10.1) mg/dl Total Bilirubin 1.3 H (0.2-1) mg/dl Direct Bilirubin (0-0.2) mg/dl AST 56 H (15-37) U/L ALT 150 H (12-78) U/L Alkaline Phosphatase 111 (45-117) U/L Troponin I < 0.015 (0-0.045) ng/ml Total Protein 5.7 L (6.4-8.2) gm/dl Albumin 2.1 L (3.4-5.0) gm/dl Globulin 3.6 (2.5-4.0) gm/dl Albumin/Globulin Ratio 0.6 L (0.9-2) Procalcitonin (0-0.5) ng/ml Urine Color Urine Appearance (Clear) Urine pH (4.5-7.5) Ur Specific [place] (1.000-1.030) Urine Protein (Negative) Urine Glucose (UA) (Negative) Urine Ketones (Negative) Urine Blood (Negative) Urine Nitrite (Negative) Urine Bilirubin (Negative) Urine Urobilinogen (Negative) Ur Leukocyte Esterase (Negative) COVID-19 Eval Order SARS-CoV-2, RNA, NAAT (NEGATIVE) PG Care Time/CCT Total # of Minutes Spent Total Time Spent with Patient: Total time spent is greater than 50% in coordination of care (as documented) at patient's floor/unit and/or counseling patient: Coding Level of Care Code 90294 Subseq Hosp Care Lvl 3 Diagnoses Hypotension I95.9 Redness and swelling of lower leg M79.89; R23.8 Anemia D64.9 Elevated LFTs R79.89 Port-A-Cath in place Z95.828 Anxiety F41.9 Depression F32.9 Pancreatic adenocarcinoma C25.9 Hypertension I10 Hypothyroidism E03.9 Diabetes E11.9 Hyperlipidemia E78.5 GERD (gastroesophageal reflux disease) K21.9 Coronary artery disease I25.10 BPH w urinary obs/LUTS N40.1; N13.8 Aortic stenosis I35.0 Rheumatoid arthritis M06.9 Obstructive sleep apnea G47.33 Pacemaker Z95.0 Intractable hiccups R06.6 DVT prophylaxis Z29.9
[2020-07-03] MEDS ORDERED: SODIUM CHLORIDE 0.9% 250 ML IV PRN (08:18)
[2020-07-03] MEDS ORDERED: CEFEPIME 2,000 MG in SYRINGE 0 ML IV SCH (10:00)
--- NOTE | 2020-07-03 10:14 | Consultation Report ---
DATE OF CONSULTATION: 07/03/2020 REASON FOR CONSULTATION: Hypotension and lower extremity skin rash. HISTORY OF PRESENT ILLNESS: The patient is a very pleasant 80-year-old gentleman currently managed by Dr. Jefferson Frost for recently diagnosed locally advanced pancreatic cancer. He is in the midst of receiving neoadjuvant Abraxane and gemcitabine, which was administered on 06/21 and 06/28 respectively. Apparently was in Dr. Elam office yesterday and was found to be hypotensive. The patient has described a few issues, some that occurred before chemotherapy and more specifically persistent hiccups, which developed after his first course. He admits to a transient periods of weakness where while standing, had an immediate feeling no longer able to support his weight with subsequent fall. He denies loss of consciousness or preceding symptoms like lightheadedness and dizziness. Apparently after his last dose of chemotherapy, he had noticed a lacy erythematous rash on his lower extremities bilaterally. He denies any pruritus but feels both of the areas of concern began at the same time. The patient denies any other constitute of symptoms, for the most part has done reasonably well with the exception of hiccups. He had contacted the service over the weekend while I was macroeconomics professor complaining of persistent hiccups. He was prescribed baclofen 10 mg p.o. b.i.d., which has been of some help, but states Thorazine while terribly sedating is probably more effective. The hospitalist service is requesting consultation because this gentleman has unexplained skin rash and drop in blood pressure. PAST MEDICAL HISTORY: Significant for rheumatoid arthritis, status post pacemaker, obstructive sleep apnea, hypothyroidism, hypertension, hyperlipidemia, gastroesophageal reflux disease, borderline diabetes mellitus, coronary artery disease, congestive heart failure, locally advanced pancreatic cancer, aortic stenosis, BPH. PAST SURGICAL HISTORY: Port-A-Cath placement, tooth extraction, tonsillectomy, EGD, coronary bypass grafting x4, colonoscopy, cataract surgery, history of cardiac catheterization, cardiac pacemaker. MEDICATIONS: Prior to admission includes silodosin 4 mg p.o. daily, ferrous gluconate 325 mg p.o. daily, baclofen 10 mg p.o. b.i.d. for hiccups, aspirin 81 mg p.o. daily, sertraline 25 mg p.o. at bedtime, omega-3 fish oil 1 capsule p.o. daily, olmesartan 0.5 tablet p.o. q.a.m., levothyroxine 200 mcg p.o. every day, vitamin B complex 1 tablet p.o. every day, Protonix 40 mg p.o. at bedtime, metoprolol 1.5 tablets p.o. q.a.m., lorazepam 0.5 mg p.o. at bedtime p.r.n., hydroxychloroquine 200 mg p.o. daily, atorvastatin 40 mg p.o. at bedtime. ALLERGIES: PAROXETINE, MENSULINE, PAULINO INHIBITORS, SULFA, TAMSULOSIN. FAMILY HISTORY: Father succumbed to heart disease. His mother succumbed to neoplasia as did his brother. 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 REVIEW OF SYSTEMS: GENERAL: As per HPI. Negative for fevers, chills or sweats. He is not anorexic or losing weight. SKIN: Positive for erythematous lacy rash encompassing his lower extremities below the knees bilaterally. HEENT: Again, negative for headaches, lightheadedness or dizziness. No visual or hearing deficits. No sinus symptoms, sore throat or dysphagia. LYMPH: No history of lymphadenopathy. CARDIAC: History of coronary artery disease. No current angina or palpitation. PULMONARY: Negative for COPD. He is not short of breath, dyspneic or orthopneic. No cough or hemoptysis. GASTROINTESTINAL: Negative for abdominal pain, nausea, vomiting, diarrhea or constipation. MUSCULOSKELETAL: Transient intermittent weakness. No arthralgias. ENDOCRINE: Negative for diabetes or thyroid disease. NEUROLOGIC: Negative for seizure, stroke, or migraine headache. HEMATOLOGIC: Positive for pancytopenia attributable to treatment effect. PHYSICAL EXAMINATION: GENERAL: A very pleasant 80-year-old gentleman, awake, alert and appropriate, in no acute distress. VITAL SIGNS: Temperature 36.8, pulse 60, respiratory rate 18, blood pressure 125/52. SKIN: Warm, dry, noncyanotic without petechia, rash or ecchymosis. HEENT: Head is atraumatic, normocephalic. Eyes: PERRLA, EOMI. Sclerae nonicteric. No conjunctival injection. Nares patent without rhinorrhea or discharge. Throat is clear. Tongue is midline. Mucous membranes are moist. NECK: Supple without JVD or thyromegaly. LYMPHATICS: No cervical, supraclavicular, axillary or inguinal palpable nodes. HEART: Regular rate and rhythm. No clicks, rubs, murmurs or gallops. LUNGS: Clear to auscultation bilaterally. ABDOMEN: Soft, nontender, nondistended, without palpable hepatosplenomegaly. EXTREMITIES: No calf tenderness or swelling. Again, the erythematous rash is now demarcated encompassing bilateral lower extremities below the knee. There are no raised papules or macules. The rash appears vasculitic like. No clubbing, cyanosis or edema. MUSCULOSKELETAL: Strength and pulses are equal in all 4 quadrants. NEUROLOGICALLY: He is awake, alert and oriented x3. Cranial nerves grossly intact. LABORATORY DATA: WBC count 2080, hemoglobin 7.8, platelet count 98,000, absolute neutrophil count 1460. Sodium 133, potassium 4.3, chloride 102, carbon dioxide 25, BUN 19, creatinine 0.88. Liver transaminases mildly elevated, AST 39, ALT 114. Albumin 1.9. IMPRESSION: 1. Hypotension. 2. Bilateral lower extremity rash (dermatitis versus cellulitis). 3. Hypoalbuminemia. 4. Locally advanced pancreatic cancer. PLAN: The patient is a very pleasant 80-year-old gentleman well known to [facility], currently under Dr. Frost's care, recently started combination of Abraxane and gemcitabine received on 06/21 and 06/28 respectively. He had returned to the general surgery office for [facility] followup. Apparently, he was hypotensive and recommended to come to the Emergency Room. The patient has had no other constitute of symptoms with the exception of emergence of bilateral lower extremity erythematous rash which is nonpruritic. The rash appeared approximately 2 days after his second course of therapy on the . The rash does not appear to be atypical drug rash and I have asked the hospitalist to consult Dermatology perhaps as outpatient. He is not exhibiting any signs of emerging infection or cellulitis either. We will speak to Dr. Frost directly regarding chemotherapy moving forward. In my estimation, perhaps giving him one agent versus both agents to see which one may be inciting the cutaneous reaction. His peripheral blood counts are decreased attributable to chemotherapy, and anticipate recovery and they do not warrant intervention at this time. Certainly a concern with his albumin level and need to reinforce protein intake. I anticipate this gentleman's discharge in next 24 hours or so. He is scheduled for his third course of chemotherapy this coming . If there are any further questions or concerns, feel free to contact me at any time.
[2020-07-03] MEDS ORDERED: chlorproMAZINE HCL 25 MG TAB PO ONE (10:24)
--- NOTE | 2020-07-03 11:26 | Electrocardiogram Report ---
Test Reason : Blood Pressure : / mmHG Vent. Rate : 060 BPM Atrial Rate : 060 BPM P-R Int : 288 ms QRS Dur : 086 ms QT Int : 434 ms P-R-T Axes : 000 067 074 degrees QTc Int : 434 ms Atrial-paced rhythm with prolonged AV conduction Abnormal ECG When compared with ECG of 02-JUL-2020 10:54, No significant change was found Confirmed by Mikel Chang ([id number] on 07/03/2020 11:25:28 AM Referred By: REFERRED SELF Confirmed By:Orion Chang
--- NOTE | 2020-07-03 12:42 | Dermatology Consultation ---
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 Exam is not consistent with a vasculitic reaction or a typical drug hypersensitivity reaction. Drugs have been reported to trigger capillaritis, but I cannot find where his current chemotherapeutic agents have been reported. - Optimize volume status. - Optimize nutrition/protein status to minimize 3rd spacing. - Discussed with patient that frequent ambulation + keeping legs elevated above the level of the heart when at rest should help minimize dependent edema in the lower legs. - He would likely benefit from knee-high compression stockings, 10-20mmHg, if no other contraindication from a vascular standpoint. - Given that he is asymptomatic (capillaritis typically is), I would only recommend general moisturization 1-2 times daily with a bland emollient such as Cetaphil cream. Benefit from topical steroids is inconsistent. - Discussed that his erythema seems to be slowly resolving in some peripheral areas, but it will likely leave light brown, bronze discoloration once it resolves. Present on Admission?: Yes History of Present Illness Reason for Consultation: Rash on bilateral legs Requesting Physician: Lela Whipple MD Attending Physician: Lela Whipple MD History of Present Illness Patient is an 80 y/o male admitted to [facility] from Dr. Bravo's office on 07/02/2020 for hypotension and weakness. He has a history of recently diagn osed, locally advanced pancreatic cancer being managed by Dr. Jefferson Frost. He is in the midst of treatment with neoadjuvant Abraxane and gemcitabine, which he has received on 06/21/2020 and 06/28/2020. He states that he has been tolerating treatment well thus far. I have been consulted for evaluation of a rash on the bilateral lower legs. He states that he first noticed the rash on the evening of Thursday06/30/2020 after he removed his pants. He also noticed increased swelling in his lower legs at that time. He reports a history of having some lower extremity swelling on and off in the past, but not to this extent. He denies noticing any itching/burning related to his rash. The rash progressed somewhat over the next 24 hours or so, but then has been relatively stable. He states that he applied some vaseline to the legs at home, but otherwise he did not use any particular treatment. He is not currently on any therapy for it. He denies any history of similar eruption in the past. He denies any involvement or other rashes elsewhere on the body. Upon admission he was noted to be anemic, so he is receiving transfusion today. He did have bilateral LE venous ultrasounds performed at admission that were negative for DVT. He is otherwise feeling well and hopes to go home soon. No other skin complaints. Allergies Allergy/AdvReac Type Severity Reaction Status Date / Time paroxetine [From Paxil] Allergy Unknown Unknown Verified 07/02/20 09:13 ranolazine [From Ranexa] Allergy Unknown URINARY Verified 07/02/20 09:13 LEAKING PROBLEMS PAULINO Inhibitors AdvReac Mild COUGH Verified 07/02/20 09:13 Sulfa (Sulfonamide AdvReac Mild SICK IN Verified 07/02/20 09:13 Antibiotics) STOMACH tamsulosin AdvReac Mild DIZZINESS Verified 07/02/20 09:13 Home Medications Medication Instructions Recorded Confirmed Type atorvastatin 40 mg PO HS 02/05/18 07/02/20 History hydroxychloroquine 200 mg PO QAM 02/05/18 07/02/20 History lorazepam 0.5 mg PO HS PRN 02/05/18 07/02/20 History metoprolol succinate 1.5 tab PO QAM 02/05/18 07/02/20 History pantoprazole [Protonix] 40 mg PO HS 02/05/18 07/02/20 History vitamin B complex 1 tab PO QAM 02/05/18 07/02/20 History levothyroxine 200 mcg capsule 200 mcg PO QAM 06/12/20 07/02/20 History olmesartan 40 0.5 tab PO QAM tab 06/12/20 07/02/20 History mg-hydrochlorothiazide 12.5 mg tablet omega-3 acid ethyl esters 1 gram 1 cap PO QAM 06/12/20 07/02/20 History capsule sertraline 25 mg tablet 25 mg PO HS 06/12/20 07/02/20 History aspirin 81 mg PO QAM 06/14/20 07/02/20 History baclofen 10 mg PO DAILY 07/02/20 07/02/20 History ferrous gluconate 324 mg PO QAM 07/02/20 07/02/20 History silodosin 4 mg PO DAILY 07/02/20 07/02/20 History Patient History Medical History Aortic stenosis MODERATE PER 05/2019 ECHO BPH w urinary obs/LUTS Cancer PANCREATIC CANCER Carotid stenosis History of known severe high-grade external carotid stenosis with less than 50% bilateral internal carotid artery stenosis per 02/2020 cardio note Chest pain NO RECENT ISSUES PER NURSING INTERVIEW CHF (congestive heart failure) Coronary artery disease S/p 4 vessel CABG Diabetes DIET MANAGED GERD (gastroesophageal reflux disease) Hyperlipidemia Hypertension Hypothyroidism Obstructive sleep apnea CPAP-OCC USE Pacemaker PLACED 2016- BIOTRONIK>BRADYCARDIA (CHRONOTROPIC INCOMPETENCE)/FOLLOWED BY DR. COPPOLA Rheumatoid arthritis Surgical History Cardiac pacemaker in situ Difficult airway for intubation HEART CATH PROCEDURE- CATH PROCEDURES FOR 2009, 2011, 2015 REVIEWED- NO DOCUMENTATION OF AIRWAY ISSUES History of anesthesia reaction "GROGGY FOR A FEW DAYS" History of cardiac cath NO STENTS History of cataract surgery LEFT/RIGHT History of colonoscopy History of coronary artery bypass graft X 4 VESSELS 1999 History of esophagogastroduodenoscopy (EGD) History of tonsillectomy History of tooth extraction GUM SURGERY Port-A-Cath in place (06/19/20) Insertion of Mediport with Fluoroscopy Dr. Elam 06/19/2020 Family History Family/Other Family history of diabetes mellitus PATERNAL AUNT Father Heart disease Brother Cancer Mother Cancer Son Family history of diabetes mellitus Other Coronary heart disease Obstructive sleep apnea Social History (Updated 07/02/20 @ 16:57 by Jodie Thakkar DO) Smoking Status: Never smoker Years Smoked: 5; Number of Years Since Quit: 50; Second Hand Exposure: No; Hx Alcohol Use: No Hx Substance Use: No Preferred Language: Somali Communication Ability: Effective Foreign Service Teacher Required: No Beliefs That Will Affect Care: None marital status: Current Living Situation: Spouse current occupational status: retired current occupation: Retired [employer] Other Information That Helps Us Care for You: No Feels Safe at Home: Yes Safety Concerns: Feels Safe At This Time Assistive Devices: Glasses Review of Systems Constitutional: no fever and no fatigue Eyes: no eye pain Ear, Nose, Mouth, Throat: no mouth lesions Integumentary: as per Subjective / HPI Allergy / Immunological: no lip swelling and no tongue swelling Physical Exam Physical Exam: General Appearance: Well developed, well-nourished and in no acute distress Psych: Alert, Oriented and Appropriate Skin Type: 2 Scalp/Hair: No abnormalities noted. Face: No abnormalities noted. Eyelids/Ocular Mucosa: No abnormalities noted. Lips/Teeth/Gums: No abnormalities noted. Neck: No abnormalities noted. Right Lower Extremity: [id number], nonblanchable patches with background nonpalpable petechiae on the srivastava, calf +associated 3+ pitting edema no vesicles/bullae no palpable purpura Left Lower Extremity: [id number], nonblanchable patches with background nonpalpable petechiae on the srivastava, calf +associated 2-3+ pitting edema no vesicles/bullae no palpable purpura Back: No abnormalities noted. Buttocks/Groin/Genitalia: No abnormalities noted. Right Upper Extremity: No abnormalities noted. Left Upper Extremity: No abnormalities noted. Chest/Breast/Axillae: No abnormalities noted. Abdomen: No abnormalities noted. Nails: No abnormalities noted. Results & Data ([facility]) Vital Signs (Past 12 Hours) Vital Signs Temp Pulse Pulse Resp BP BP Pulse Ox 07/03/20 11:55 36.4 C L 60 18 137/61 98 07/03/20 11:50 37.0 C 66 18 132/63 96 07/03/20 11:25 36.7 C 60 16 132/51 L 98 07/03/20 11:10 36.6 C 60 18 150/72 H 98 07/03/20 10:53 36.6 C 60 18 151/76 H 99 07/03/20 08:07 36.8 C 60 18 125/52 L 99 07/03/20 04:53 36.7 C 92 H 16 115/43 L 98 Laboratory Results 07/03/20 07/03/20 07/03/20 Range/Units 09:50 08:41 05:28 WBC (4.8-10.8) K/uL RBC (4.7-6.1) M/uL Hgb (14.0-18.0) g/dL Hct (42-52) % MCV (80-100) fL MCH (25-34) pg MCHC (32-36) g/dL RDW Std Deviation (36.4-46.3) fL RDW Coeff of Iris (11.5-14.5) % Plt Count (130-400) K/uL MPV (7.4-10.4) fL Immature Gran % (Auto) % Neut % (Auto) % Lymph % (Auto) % [place] % (Auto) % Eos % (Auto) % Baso % (Auto) % Neut # (Auto) (1.4-6.5) K/uL Lymph # (Auto) (1.2-3.4) K/uL [place] # (Auto) (0.11-0.59) K/uL Eos # (Auto) (0-0.5) K/uL Baso # (Auto) (0-0.2) K/uL Immature Gran # (Auto) (0.00-0.02) K/uL Neutrophils % (Manual) % Lymphocytes % (Manual) % Neutrophils # (Manual) (1.4-6.5) K/uL Total Absolute Neuts (1.4-6.5) K/uL Lymphocytes # (Manual) (1.2-3.4) K/uL Total Abs Lymphocytes (1.2-3.4) K/uL Hyposegmented Neuts Platelet Estimate (Normal) Giant Platelets Sodium (136-145) mmol/L Potassium (3.5-5.1) mmol/L Chloride (98-107) mmol/L Carbon Dioxide (21-32) mmol/L Anion Gap (3-11) BUN (7-18) mg/dl Creatinine (0.6-1.4) mg/dl Est Cr Clr Drug Dosing ml/min Est GFR ( Amer) Est GFR (Non-Af Amer) BUN/Creatinine Ratio (10-20) Glucose (70-99) mg/dl Calcium (8.5-10.1) mg/dl Total Bilirubin (0.2-1) mg/dl Direct Bilirubin (0-0.2) mg/dl AST (15-37) U/L ALT (12-78) U/L Alkaline Phosphatase (45-117) U/L Total Protein (6.4-8.2) gm/dl Albumin (3.4-5.0) gm/dl Nasal Screen MRSA (PCR) Negative (Negative) COVID-19 Eval Order SARS-CoV-2, RNA, NAAT (NEGATIVE) Blood Type A Positive Blood Type Recheck A Positive Antibody Screen NEGATIVE Crossmatch See Detail 07/03/20 07/03/20 07/02/20 Range/Units 05:28 05:28 19:51 WBC 2.08 L (4.8-10.8) K/uL RBC 2.54 L (4.7-6.1) M/uL Hgb 7.8 L (14.0-18.0) g/dL Hct 22.9 L (42-52) % MCV 90.2 (80-100) fL MCH 30.7 (25-34) pg MCHC 34.1 (32-36) g/dL RDW Std Deviation 44.8 (36.4-46.3) fL RDW Coeff of Iris 13.6 (11.5-14.5) % Plt Count 98 L (130-400) K/uL MPV 11.2 H (7.4-10.4) fL Immature Gran % (Auto) 0.5 % Neut % (Auto) 70.1 % Lymph % (Auto) 27.9 % [place] % (Auto) 0.5 % Eos % (Auto) 1.0 % Baso % (Auto) 0.0 % Neut # (Auto) 1.46 (1.4-6.5) K/uL Lymph # (Auto) 0.58 L (1.2-3.4) K/uL [place] # (Auto) 0.01 L (0.11-0.59) K/uL Eos # (Auto) 0.02 (0-0.5) K/uL Baso # (Auto) 0.00 (0-0.2) K/uL Immature Gran # (Auto) 0.01 (0.00-0.02) K/uL Neutrophils % (Manual) % Lymphocytes % (Manual) % Neutrophils # (Manual) (1.4-6.5) K/uL Total Absolute Neuts (1.4-6.5) K/uL Lymphocytes # (Manual) (1.2-3.4) K/uL Total Abs Lymphocytes (1.2-3.4) K/uL Hyposegmented Neuts Platelet Estimate Decreased L (Normal) Giant Platelets 2+ Sodium 133 L (136-145) mmol/L Potassium 4.3 (3.5-5.1) mmol/L Chloride 102 (98-107) mmol/L Carbon Dioxide 25 (21-32) mmol/L Anion Gap 6.0 (3-11) BUN 19 H (7-18) mg/dl Creatinine 0.88 (0.6-1.4) mg/dl Est Cr Clr Drug Dosing 76.5 ml/min Est GFR ( Amer) 94.0 Est GFR (Non-Af Amer) 81.1 BUN/Creatinine Ratio 21.3 H (10-20) Glucose 171 H (70-99) mg/dl Calcium 8.5 (8.5-10.1) mg/dl Total Bilirubin 1.0 1.1 H (0.2-1) mg/dl Direct Bilirubin 0.5 H 0.6 H (0-0.2) mg/dl AST 39 H 49 H (15-37) U/L ALT 114 H 141 H (12-78) U/L Alkaline Phosphatase 108 113 (45-117) U/L Total Protein 5.5 L 5.9 L (6.4-8.2) gm/dl Albumin 1.9 L 2.2 L (3.4-5.0) gm/dl Nasal Screen MRSA (PCR) (Negative) COVID-19 Eval Order SARS-CoV-2, RNA, NAAT (NEGATIVE) Blood Type Blood Type Recheck Antibody Screen Crossmatch 07/02/20 07/02/20 07/02/20 Range/Units 16:15 16:15 11:45 WBC (4.8-10.8) K/uL RBC (4.7-6.1) M/uL Hgb (14.0-18.0) g/dL Hct (42-52) % MCV (80-100) fL MCH (25-34) pg MCHC (32-36) g/dL RDW Std Deviation (36.4-46.3) fL RDW Coeff of Iris (11.5-14.5) % Plt Count (130-400) K/uL MPV (7.4-10.4) fL Immature Gran % (Auto) % Neut % (Auto) % Lymph % (Auto) % [place] % (Auto) % Eos % (Auto) % Baso % (Auto) % Neut # (Auto) (1.4-6.5) K/uL Lymph # (Auto) (1.2-3.4) K/uL [place] # (Auto) (0.11-0.59) K/uL Eos # (Auto) (0-0.5) K/uL Baso # (Auto) (0-0.2) K/uL Immature Gran # (Auto) (0.00-0.02) K/uL Neutrophils % (Manual) 91.3 % Lymphocytes % (Manual) 8.7 % Neutrophils # (Manual) 2.43 (1.4-6.5) K/uL Total Absolute Neuts 2.43 (1.4-6.5) K/uL Lymphocytes # (Manual) 0.23 L (1.2-3.4) K/uL Total Abs Lymphocytes 0.23 L (1.2-3.4) K/uL Hyposegmented Neuts 1+ Platelet Estimate (Normal) Giant Platelets Sodium (136-145) mmol/L Potassium (3.5-5.1) mmol/L Chloride (98-107) mmol/L Carbon Dioxide (21-32) mmol/L Anion Gap (3-11) BUN (7-18) mg/dl Creatinine (0.6-1.4) mg/dl Est Cr Clr Drug Dosing ml/min Est GFR ( Amer) Est GFR (Non-Af Amer) BUN/Creatinine Ratio (10-20) Glucose (70-99) mg/dl Calcium (8.5-10.1) mg/dl Total Bilirubin (0.2-1) mg/dl Direct Bilirubin (0-0.2) mg/dl AST (15-37) U/L ALT (12-78) U/L Alkaline Phosphatase (45-117) U/L Total Protein (6.4-8.2) gm/dl Albumin (3.4-5.0) gm/dl Nasal Screen MRSA (PCR) (Negative) COVID-19 Eval [facility] SARS-[facility]-2, RNA, NAAT NEGATIVE (NEGATIVE) Blood Type Blood Type Recheck Antibody Screen Crossmatch PG Care Time/CCT Total # of Minutes Spent Total Time Spent with Patient: Total time spent is greater than 50% in coordination of care (as documented) at patient's floor/unit and/or counseling patient: Coding Level of Care Code 66074 Initial Inpt Care Lvl 2 Diagnoses Pigmented purpuric dermatosis L81.7
[2020-07-03] MEDS ORDERED: EUCERIN CR 120 GM JAR EXT PRN (15:02)
[2020-07-03] MEDS: ATORVASTATIN 40 MG TAB PO SCH (20:36)
[2020-07-03] MEDS: PANTOprazole 40 MG TAB PO SCH (20:37)
[2020-07-03] MEDS: SERTRALINE HCL 50 MG TABLET PO SCH (20:37)
[2020-07-03] MEDS: METOPROLOL SUCC 25MG EXT REL TAB PO SCH (21:47)
--- NOTE | 2020-07-03 22:46 | Emergency Department Note ---
Impression & Plan Nonblanching rash, Redness and swelling of lower leg, Pancreatic cancer ED Provider Note NAME: ARLINE GLEASON AGE: 80 SEX: M ARRIVES VIA: Walk-In INFORMANT: Patient, ED PROVIDER(S): Ranad De La Garza MD CHIEF COMPLAINT: Bilateral lower extremity rash, swelling, low blood pressure, pancreatic cancer PLAN: Disposition: Inpatient Condition: Fair Referral: Hospitalist MEDICAL DECISION MAKING: This patient was evaluated and appeared to be in no significant distress. IV access was obtained and laboratory work was drawn. Patient was placed on a cardiac monitor technician and noted to be in an atrially paced rhythm at 60 bpm. Patient's laboratory work reveals a leukopenia with a white blood cell count of 4, anemia with hemoglobin of 8.1 and a thrombocytopenia with platelet count of 100. Patient does have some notable swelling of the bilateral lower extremities. The rash is a nonblanching purpuric type rash but is warm to touch. There is some erythema noted to the mid thigh. Patient was given IV cefepime given his immunocompromise status and chemotherapy however it does not appear to be consistent with a cellulitis given its symmetric bilateral lower extremity presentation. DVT studies of the bilateral lower extremity are negative. Patient's case was discussed with the hospitalist service will evaluate the patient for further management. Patient and are aware of the plan and agree. Triage Nursing notes reviewed. Prior medical records reviewed Vital Signs: reviewed and remarkable for no significant abnormalities Differential diagnosis: Cellulitis, abscess, MRSA infection, DVT, necrotizing fasciitis, dermatitis, drug eruption/chemo reaction, allergic reaction, as well as other pathologies. ER treatment provided: IV cefepime IV normal saline solution Diagnostics interpreted by me: ECG: Atrially paced with prolonged AV conduction at 60 bpm. QTc is 440. No PVC, no PAC. Normal ST segment. T wave flattening noted in the inferior and anterior leads. Normal axis. Cardiac Monitoring: An order for cardiac monitoring was placed and the patient is noted to be in an atrially paced rhythm at 60 bpm. Laboratory studies: See below Imaging studies: XR chest 1V portable HISTORY: 80 years-old Male fever acute fever COMPARISON: Chest radiograph 06/19/2020 TECHNIQUE: Portable AP view of the chest FINDINGS: Cardiac silhouette is mildly enlarged. Prior median sternotomy with CABG. Calcified plaque of the thoracic aorta. Left subclavian pacer. Right IJ [id number] catheter. No pneumothorax, pleural effusion or overt pulmonary edema. Mild interstitial coarsening redemonstrated. Degenerative changes of the shoulders and spine. IMPRESSION: 1. No acute process. 2. Cardiomegaly with chronic interstitial coarsening. ACT 112: Negative or not required by law. The above report was generated using voice recognition software. It may contain grammatical, syntax or spelling errors. Electronically signed by: Kal Borjas M.D. 07/02/2020 12:13 PM Dictated: 07/02/20 1212Transcribed: 07/02/201211 BILATERAL LOWER EXTREMITY VENOUS DOPPLER HISTORY: DVT COMPARISON STUDY: None. FINDINGS: There is normal compressibility, flow, and augmentation within the bilateral lower extremity deep venous systems. IMPRESSION: No DVT within the right or left lower extremity. ACT 112: Negative or not required by law. Electronically signed by: Kal Borjas M.D. 07/02/2020 1:27 PM Dictated: 07/02/20 1322Transcribed: 07/02/201321 Consultation(s): Hospitalist HPI: 80/M arrives for evaluation of a low blood pressure reading at the outpatient surgeon's office today. Patient was there for a routine checkup of his recent port placement. The patient has pancreatic cancer and has been receiving chemotherapy. Patient has been feeling somewhat weak and having d ifficulty with exertion. He states his legs have been swollen recently and complains of a rash. His wonders if it is a contact reaction to the urine in his depends as he has been wearing a depends over the last several days. Patient states his legs are a little sore however he denies any itching or open lesions. Patient has had 2 rounds of chemotherapy. He states he had 2 blood pressures in the 80s at the surgeon's office but denies chest pain or shortness of breath. He denies any recent fevers, vomiting or diarrhea. ROS: See above HPI for pertinent positives & negatives. A total of [10] systems reviewed and were otherwise negative. PAST MEDICAL HISTORY:See Below PAST SURGICAL HISTORY:See Below FAMILY HISTORY:See Below SOCIAL HISTORY:See Below HOME MEDICATIONS:See Below ALLERGIES:See Below VITALS:See Below PHYSICAL EXAMINATION: Vital signs reviewed. General: Chronically ill-appearing 80-year-old male, in no significant distress. HEENT: No scleral icterus, PERRLA, neck supple. Atraumatic. Cardiovascular: Regular rate and rhythm, systolic ejection murmur Pulmonary: Clear to auscultation bilaterally, normal work of breathing. Abdomen: Soft, nontender, nondistended, positive bowel sounds. Musculoskeletal: Atraumatic, no peripheral edema. Right anterior chest with a subclavian port. Wound appears to be intact without overlying erythema or drainage. Neurologic: Patient awake alert and oriented x 3, full strength in all 4 extremities. Cranial nerves 2 through 12 grossly intact. Skin: Warm, dry, 2+ pitting edema to the bilateral lower extremities. There is a nonblanching rash to the bilateral lower extremities to the mid thigh with some mild erythema proximally. It is warm to touch without lymphangitic st reaking or open lesion. It does appear to be purpuric. Randa De La Garza MD Past Med/Surg History Medical History Aortic stenosis MODERATE PER 05/2019 ECHO BPH w urinary obs/LUTS Cancer PANCREATIC CANCER Carotid stenosis History of known severe high-grade external carotid stenosis with less than 50% bilateral internal carotid artery stenosis per 02/2020 cardio note Chest pain NO RECENT ISSUES PER NURSING INTERVIEW CHF (congestive heart failure) Coronary artery disease S/p 4 vessel CABG Diabetes DIET MANAGED GERD (gastroesophageal reflux disease) Hyperlipidemia Hypertension Hypothyroidism Obstructive sleep apnea CPAP-OCC USE Pacemaker PLACED 2016- BIOTRONIK>BRADYCARDIA (CHRONOTROPIC INCOMPETENCE)/FOLLOWED BY DR. COPPOLA Rheumatoid arthritis Surgical History Cardiac pacemaker in situ Difficult airway for intubation HEART CATH PROCEDURE- CATH PROCEDURES FOR 2009, 2011, 2015 REVIEWED- NO DOCUMENTATION OF AIRWAY ISSUES History of anesthesia reaction "GROGGY FOR A FEW DAYS" History of cardiac cath NO STENTS History of cataract surgery LEFT/RIGHT History of colonoscopy History of coronary artery bypass graft X 4 VESSELS 1999 History of esophagogastroduodenoscopy (EGD) History of tonsillectomy History of tooth extraction GUM SURGERY Port-A-Cath in place (06/19/20) Insertion of Mediport with Fluoroscopy Dr. Elam 06/19/2020 Family History Family/Other Family history of diabetes mellitus PATERNAL AUNT Father Heart disease Brother Cancer Mother Cancer Son Family history of diabetes mellitus Other Coronary heart disease Obstructive sleep apnea Social History Smoking Status: Never smoker Years Smoked: 5; Number of Years Since Quit: 50; Second Hand Exposure: No; Hx Alcohol Use: No Hx Substance Use: No Preferred Language: Maltese Communication Ability: Effective Per Diem Nurse Required: No Beliefs That Will Affect Care: None marital status: Current Living Situation: Spouse current occupational status: retired 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 Feels Safe at Home: Yes Assistive Devices: Walker Allergies Allergies Allergy/AdvReac Type Severity Reaction Status Date / Time paroxetine [From Paxil] Allergy Unknown Unknown Verified 07/02/20 09:13 ranolazine [From Ranexa] Allergy Unknown URINARY Verified 07/02/20 09:13 LEAKING PROBLEMS PAULINO Inhibitors AdvReac Mild COUGH Verified 07/02/20 09:13 Sulfa (Sulfonamide AdvReac Mild SICK IN Verified 07/02/20 09:13 Antibiotics) STOMACH tamsulosin AdvReac Mild DIZZINESS Verified 07/02/20 09:13 Home Meds Home Medications Medication Instructions Recorded Confirmed atorvastatin 40 mg PO HS 02/05/18 07/02/20 hydroxychloroquine 200 mg PO QAM 02/05/18 07/02/20 lorazepam 0.5 mg PO HS PRN 02/05/18 07/02/20 metoprolol succinate 1.5 tab PO QAM 02/05/18 07/02/20 pantoprazole [Protonix] 40 mg PO HS 02/05/18 07/02/20 vitamin B complex 1 tab PO QAM 02/05/18 07/02/20 levothyroxine 200 mcg capsule 200 mcg PO QAM 06/12/20 07/02/20 omega-3 acid ethyl esters 1 gram 1 cap PO QAM 06/12/20 07/02/20 capsule sertraline 25 mg tablet 25 mg PO HS 06/12/20 07/02/20 baclofen 10 mg PO DAILY 07/02/20 07/02/20 ferrous gluconate 324 mg PO QAM 07/02/20 07/02/20 silodosin 4 mg PO DAILY 07/02/20 07/02/20 Previous Rx's Medication Instructions Recorded aspirin 81 mg PO Q2D #0 tab 07/04/20 chlorpromazine 25 mg PO Q6H PRN #10 tab 07/04/20 famotidine 20 mg PO BID 30 Days #60 tab 07/04/20 olmesartan-hydrochlorothiazide 0.25 tab PO QAM #0 tab 07/04/20 [Benicar HCT] white petrolatum-mineral oil 1 applic EXT BID PRN #2568 g 07/04/20 [Dermacerin] Results & Data (ED) Vital Signs Vital Signs - 24 hr 07/02/20 15:18 07/02/20 15:30 07/02/20 15:31 Temperature Temperature Source Pulse Rate 60 60 60 Pulse Rate [Right Radial] Pulse Rate from SpO2 Sensor Respiratory Rate 18 13 20 Respiratory Effort / Characteristics Respiratory Depth Respiratory Pattern Blood Pressure 130/77 145/49 H Blood Pressure [Right Arm] Blood Pressure Mean 94 81 Blood Pressure Mean [Right Arm] Blood Pressure Position [Right Arm] Pulse Oximetry Oxygen Delivery Method 07/02/20 16:00 07/02/20 16:40 07/02/20 16:41 Temperature Temperature Source Pulse Rate 60 60 60 Pulse Rate [Right Radial] Pulse Rate from SpO2 Sensor 64 Respiratory Rate 16 20 24 Respiratory Effort / Characteristics Respiratory Depth Respiratory Pattern Blood Pressure 139/56 L 109/56 L Blood Pressure [Right Arm] Blood Pressure Mean 83 73 Blood Pressure Mean [Right Arm] Blood Pressure Position [Right Arm] Pulse Oximetry 94 Oxygen Delivery Method 07/02/20 17:00 07/02/20 17:30 07/02/20 18:00 Temperature Temperature Source Pulse Rate 60 60 60 Pulse Rate [Right Radial] Pulse Rate from SpO2 Sensor Respiratory Rate 22 25 H 22 Respiratory Effort / Characteristics Respiratory Depth Respiratory Pattern Blood Pressure 124/53 L 142/60 H Blood Pressure [Right Arm] Blood Pressure Mean 76 87 Blood Pressure Mean [Right Arm] Blood Pressure Position [Right Arm] Pulse Oximetry Oxygen Delivery Method 07/02/20 18:30 07/02/20 19:31 07/02/20 20:59 Temperature 36.5 C Temperature Source Oral Pulse Rate Pulse Rate [Right Radial] 60 Pulse Rate from SpO2 Sensor Respiratory Rate 17 21 Respiratory Effort / Characteristics Respiratory Depth Respiratory Pattern Blood Pressure 136/67 Blood Pressure [Right Arm] 132/61 100/55 L Blood Pressure Mean 90 Blood Pressure Mean [Right Arm] 84 70 Blood Pressure Position [Right Arm] Pulse Oximetry 98 Oxygen Delivery Method 07/02/20 23:33 07/03/20 04:53 07/03/20 07:30 Temperature 36.6 C 36.7 C Temperature Source Oral Oral Pulse Rate Pulse Rate [Right Radial] 57 L 92 H Pulse Rate from SpO2 Sensor Respiratory Rate 16 16 Respiratory Effort / Characteristics Non-Labored Spontaneous Respiratory Depth Normal Respiratory Pattern Regular Blood Pressure Blood Pressure [Right Arm] 129/65 115/43 L Blood Pressure Mean Blood Pressure Mean [Right Arm] 86 67 Blood Pressure Position [Right Arm] Lying Lying Pulse Oximetry 95 98 Oxygen Delivery Method Room Air Room Air 07/03/20 08:07 Temperature 36.8 C Temperature Source Oral Pulse Rate Pulse Rate [Right Radial] 60 Pulse Rate from SpO2 Sensor Respiratory Rate 18 Respiratory Effort / Characteristics Respiratory Depth Respiratory Pattern Blood Pressure Blood Pressure [Right Arm] 125/52 L Blood Pressure Mean Blood Pressure Mean [Right Arm] 76 Blood Pressure Position [Right Arm] Pulse Oximetry 99 Oxygen Delivery Method Home Medications Current Medication List: was personally reviewed by me Laboratory Data Attestation: I reviewed the patient's lab results. Result diagrams: 07/04/20 05:57 07/04/20 05:57 Lab Results 07/02/20 07/02/20 07/02/20 Range/Units 11:45 11:45 11:45 WBC 2.66 L (4.8-10.8) K/uL RBC 2.67 L (4.7-6.1) M/uL Hgb 8.1 L (14.0-18.0) g/dL Hct 24.0 L (42-52) % MCV 89.9 (80-100) fL MCH 30.3 (25-34) pg MCHC 33.8 (32-36) g/dL RDW Std Deviation 44.1 (36.4-46.3) fL RDW Coeff of Iris 13.4 (11.5-14.5) % Plt Count 100 L (130-400) K/uL MPV 10.7 H (7.4-10.4) fL Immature Gran % (Auto) % Neut % (Auto) % Lymph % (Auto) % [place] % (Auto) % Eos % (Auto) % Baso % (Auto) % Neut # (Auto) (1.4-6.5) K/uL Lymph # (Auto) (1.2-3.4) K/uL [place] # (Auto) (0.11-0.59) K/uL Eos # (Auto) (0-0.5) K/uL Baso # (Auto) (0-0.2) K/uL Immature Gran # (Auto) (0.00-0.02) K/uL Neutrophils % (Manual) 91.3 % Lymphocytes % (Manual) 8.7 % Neutrophils # (Manual) 2.43 (1.4-6.5) K/uL Total Absolute Neuts 2.43 (1.4-6.5) K/uL Lymphocytes # (Manual) 0.23 L (1.2-3.4) K/uL Total Abs Lymphocytes 0.23 L (1.2-3.4) K/uL Hyposegmented Neuts 1+ Platelet Estimate (Normal) Giant Platelets PT (9.0-12.0) Seconds INR (0.9-1.1) APTT (21.0-31.0) Seconds PTT Ratio Sodium 130 L (136-145) mmol/L Potassium 4.3 (3.5-5.1) mmol/L Chloride 99 (98-107) mmol/L Carbon Dioxide 24 (21-32) mmol/L Anion Gap 7.0 (3-11) BUN 24 H (7-18) mg/dl Creatinine 0.97 (0.6-1.4) mg/dl Est Cr Clr Drug Dosing Not Reportable Est GFR ( Amer) 85.1 Est GFR (Non-Af Amer) 73.4 BUN/Creatinine Ratio 24.9 H (10-20) Glucose 172 H (70-99) mg/dl Lactate 1.2 (0.4-2.0) mmol/L Calcium 8.6 (8.5-10.1) mg/dl Total Bilirubin 1.3 H (0.2-1) mg/dl Direct Bilirubin (0-0.2) mg/dl AST 56 H (15-37) U/L ALT 150 H (12-78) U/L Alkaline Phosphatase 111 (45-117) U/L Troponin I < 0.015 (0-0.045) ng/ml Total Protein 5.7 L (6.4-8.2) gm/dl Albumin 2.1 L (3.4-5.0) gm/dl Globulin 3.6 (2.5-4.0) gm/dl Albumin/Globulin Ratio 0.6 L (0.9-2) Procalcitonin (0-0.5) ng/ml Urine Color Urine Appearance (Clear) Urine pH (4.5-7.5) Ur Specific [place] (1.000-1.030) Urine Protein (Negative) Urine Glucose (UA) (Negative) Urine Ketones (Negative) Urine Blood (Negative) Urine Nitrite (Negative) Urine Bilirubin (Negative) Urine Urobilinogen (Negative) Ur Leukocyte Esterase (Negative) Nasal Screen MRSA (PCR) (Negative) COVID-19 Eval Order SARS-CoV-2, RNA, NAAT (NEGATIVE) Blood Type Blood Type Recheck Antibody Screen Crossmatch 07/02/20 07/02/20 07/02/20 Range/Units 11:45 11:45 12:00 WBC (4.8-10.8) K/uL RBC (4.7-6.1) M/uL Hgb (14.0-18.0) g/dL Hct (42-52) % MCV (80-100) fL MCH (25-34) pg MCHC (32-36) g/dL RDW Std Deviation (36.4-46.3) fL RDW Coeff of Iris (11.5-14.5) % Plt Count (130-400) K/uL MPV (7.4-10.4) fL Immature Gran % (Auto) % Neut % (Auto) % Lymph % (Auto) % [place] % (Auto) % Eos % (Auto) % Baso % (Auto) % Neut # (Auto) (1.4-6.5) K/uL Lymph # (Auto) (1.2-3.4) K/uL [place] # (Auto) (0.11-0.59) K/uL Eos # (Auto) (0-0.5) K/uL Baso # (Auto) (0-0.2) K/uL Immature Gran # (Auto) (0.00-0.02) K/uL Neutrophils % (Manual) % Lymphocytes % (Manual) % Neutrophils # (Manual) (1.4-6.5) K/uL Total Absolute Neuts (1.4-6.5) K/uL Lymphocytes # (Manual) (1.2-3.4) K/uL Total Abs Lymphocytes (1.2-3.4) K/uL Hyposegmented Neuts Platelet Estimate (Normal) Giant Platelets PT 12.7 H (9.0-12.0) Seconds INR 1.2 H (0.9-1.1) APTT 37.9 H (21.0-31.0) Seconds PTT Ratio 1.4 Sodium (136-145) mmol/L Potassium (3.5-5.1) mmol/L Chloride (98-107) mmol/L Carbon Dioxide (21-32) mmol/L Anion Gap (3-11) BUN (7-18) mg/dl Creatinine (0.6-1.4) mg/dl Est Cr Clr Drug Dosing Est GFR ( Amer) Est GFR (Non-Af Amer) BUN/Creatinine Ratio (10-20) Glucose (70-99) mg/dl Lactate (0.4-2.0) mmol/L Calcium (8.5-10.1) mg/dl Total Bilirubin (0.2-1) mg/dl Direct Bilirubin (0-0.2) mg/dl AST (15-37) U/L ALT (12-78) U/L Alkaline Phosphatase (45-117) U/L Troponin I (0-0.045) ng/ml Total Protein (6.4-8.2) gm/dl Albumin (3.4-5.0) gm/dl Globulin (2.5-4.0) gm/dl Albumin/Globulin Ratio (0.9-2) Procalcitonin 0.32 (0-0.5) ng/ml Urine Color Dark Yellow Urine Appearance Clear (Clear) Urine pH 6.5 (4.5-7.5) Ur Specific [place] 1.009 (1.000-1.030) Urine Protein Negative (Negative) Urine Glucose (UA) Negative (Negative) Urine Ketones Negative (Negative) Urine Blood Negative (Negative) Urine Nitrite Negative (Negative) Urine Bilirubin Negative (Negative) Urine Urobilinogen Negative (Negative) Ur Leukocyte Esterase Negative (Negative) Nasal Screen MRSA (PCR) (Negative) COVID-19 Eval Order SARS-CoV-2, RNA, NAAT (NEGATIVE) Blood Type Blood Type Recheck Antibody Screen Crossmatch 07/02/20 07/02/20 07/02/20 Range/Units 16:15 16:15 19:51 WBC (4.8-10.8) K/uL RBC (4.7-6.1) M/uL Hgb (14.0-18.0) g/dL Hct (42-52) % MCV (80-100) fL MCH (25-34) pg MCHC (32-36) g/dL RDW Std Deviation (36.4-46.3) fL RDW Coeff of Iris (11.5-14.5) % Plt Count (130-400) K/uL MPV (7.4-10.4) fL Immature Gran % (Auto) % Neut % (Auto) % Lymph % (Auto) % [place] % (Auto) % Eos % (Auto) % Baso % (Auto) % Neut # (Auto) (1.4-6.5) K/uL Lymph # (Auto) (1.2-3.4) K/uL [place] # (Auto) (0.11-0.59) K/uL Eos # (Auto) (0-0.5) K/uL Baso # (Auto) (0-0.2) K/uL Immature Gran # (Auto) (0.00-0.02) K/uL Neutrophils % (Manual) % Lymphocytes % (Manual) % Neutrophils # (Manual) (1.4-6.5) K/uL Total Absolute Neuts (1.4-6.5) K/uL Lymphocytes # (Manual) (1.2-3.4) K/uL Total Abs Lymphocytes (1.2-3.4) K/uL Hyposegmented Neuts Platelet Estimate (Normal) Giant Platelets PT (9.0-12.0) Seconds INR (0.9-1.1) APTT (21.0-31.0) Seconds PTT Ratio Sodium (136-145) mmol/L Potassium (3.5-5.1) mmol/L Chloride (98-107) mmol/L Carbon Dioxide (21-32) mmol/L Anion Gap (3-11) BUN (7-18) mg/dl Creatinine (0.6-1.4) mg/dl Est Cr Clr Drug Dosing Est GFR ( Amer) Est GFR (Non-Af Amer) BUN/Creatinine Ratio (10-20) Glucose (70-99) mg/dl Lactate (0.4-2.0) mmol/L Calcium (8.5-10.1) mg/dl Total Bilirubin 1.1 H (0.2-1) mg/dl Direct Bilirubin 0.6 H (0-0.2) mg/dl AST 49 H (15-37) U/L ALT 141 H (12-78) U/L Alkaline Phosphatase 113 (45-117) U/L Troponin I (0-0.045) ng/ml Total Protein 5.9 L (6.4-8.2) gm/dl Albumin 2.2 L (3.4-5.0) gm/dl Globulin (2.5-4.0) gm/dl Albumin/Globulin Ratio (0.9-2) Procalcitonin (0-0.5) ng/ml Urine Color Urine Appearance (Clear) Urine pH (4.5-7.5) Ur Specific [place] (1.000-1.030) Urine Protein (Negative) Urine Glucose (UA) (Negative) Urine Ketones (Negative) Urine Blood (Negative) Urine Nitrite (Negative) Urine Bilirubin (Negative) Urine Urobilinogen (Negative) Ur Leukocyte Esterase (Negative) Nasal Screen MRSA (PCR) (Negative) COVID-19 Eval Order Covid19 [facility] SARS-CoV-2, RNA, NAAT NEGATIVE (NEGATIVE) Blood Type Blood Type Recheck Antibody Screen Crossmatch 07/03/20 07/03/20 07/03/20 Range/Units 05:28 05:28 05:28 WBC 2.08 L (4.8-10.8) K/uL RBC 2.54 L (4.7-6.1) M/uL Hgb 7.8 L (14.0-18.0) g/dL Hct 22.9 L (42-52) % MCV 90.2 (80-100) fL MCH 30.7 (25-34) pg MCHC 34.1 (32-36) g/dL RDW Std Deviation 44.8 (36.4-46.3) fL RDW Coeff of Iris 13.6 (11.5-14.5) % Plt Count 98 L (130-400) K/uL MPV 11.2 H (7.4-10.4) fL Immature Gran % (Auto) 0.5 % Neut % (Auto) 70.1 % Lymph % (Auto) 27.9 % [place] % (Auto) 0.5 % Eos % (Auto) 1.0 % Baso % (Auto) 0.0 % Neut # (Auto) 1.46 (1.4-6.5) K/uL Lymph # (Auto) 0.58 L (1.2-3.4) K/uL [place] # (Auto) 0.01 L (0.11-0.59) K/uL Eos # (Auto) 0.02 (0-0.5) K/uL Baso # (Auto) 0.00 (0-0.2) K/uL Immature Gran # (Auto) 0.01 (0.00-0.02) K/uL Neutrophils % (Manual) % Lymphocytes % (Manual) % Neutrophils # (Manual) (1.4-6.5) K/uL Total Absolute Neuts (1.4-6.5) K/uL Lymphocytes # (Manual) (1.2-3.4) K/uL Total Abs Lymphocytes (1.2-3.4) K/uL Hyposegmented Neuts Platelet Estimate Decreased L (Normal) Giant Platelets 2+ PT (9.0-12.0) Seconds INR (0.9-1.1) APTT (21.0-31.0) Seconds PTT Ratio Sodium 133 L (136-145) mmol/L Potassium 4.3 (3.5-5.1) mmol/L Chloride 102 (98-107) mmol/L Carbon Dioxide 25 (21-32) mmol/L Anion Gap 6.0 (3-11) BUN 19 H (7-18) mg/dl Creatinine 0.88 (0.6-1.4) mg/dl Est Cr Clr Drug Dosing 76.5 Est GFR ( Amer) 94.0 Est GFR (Non-Af Amer) 81.1 BUN/Creatinine Ratio 21.3 H (10-20) Glucose 171 H (70-99) mg/dl Lactate (0.4-2.0) mmol/L Calcium 8.5 (8.5-10.1) mg/dl Total Bilirubin 1.0 (0.2-1) mg/dl Direct Bilirubin 0.5 H (0-0.2) mg/dl AST 39 H (15-37) U/L ALT 114 H (12-78) U/L Alkaline Phosphatase 108 (45-117) U/L Troponin I (0-0.045) ng/ml Total Protein 5.5 L (6.4-8.2) gm/dl Albumin 1.9 L (3.4-5.0) gm/dl Globulin (2.5-4.0) gm/dl Albumin/Globulin Ratio (0.9-2) Procalcitonin (0-0.5) ng/ml Urine Color Urine Appearance (Clear) Urine pH (4.5-7.5) Ur Specific [place] (1.000-1.030) Urine Protein (Negative) Urine Glucose (UA) (Negative) Urine Ketones (Negative) Urine Blood (Negative) Urine Nitrite (Negative) Urine Bilirubin (Negative) Urine Urobilinogen (Negative) Ur Leukocyte Esterase (Negative) Nasal Screen MRSA (PCR) (Negative) COVID-19 Eval Order SARS-CoV-2, RNA, NAAT (NEGATIVE) Blood Type Blood Type Recheck A Positive Antibody Screen Crossmatch 07/03/20 07/03/20 Range/Units 08:41 09:50 WBC (4.8-10.8) K/uL RBC (4.7-6.1) M/uL Hgb (14.0-18.0) g/dL Hct (42-52) % MCV (80-100) fL MCH (25-34) pg MCHC (32-36) g/dL RDW Std Deviation (36.4-46.3) fL RDW Coeff of Iris (11.5-14.5) % Plt Count (130-400) K/uL MPV (7.4-10.4) fL Immature Gran % (Auto) % Neut % (Auto) % Lymph % (Auto) % [place] % (Auto) % Eos % (Auto) % Baso % (Auto) % Neut # (Auto) (1.4-6.5) K/uL Lymph # (Auto) (1.2-3.4) K/uL [place] # (Auto) (0.11-0.59) K/uL Eos # (Auto) (0-0.5) K/uL Baso # (Auto) (0-0.2) K/uL Immature Gran # (Auto) (0.00-0.02) K/uL Neutrophils % (Manual) % Lymphocytes % (Manual) % Neutrophils # (Manual) (1.4-6.5) K/uL Total Absolute Neuts (1.4-6.5) K/uL Lymphocytes # (Manual) (1.2-3.4) K/uL Total Abs Lymphocytes (1.2-3.4) K/uL Hyposegmented Neuts Platelet Estimate (Normal) Giant Platelets PT (9.0-12.0) Seconds INR (0.9-1.1) APTT (21.0-31.0) Seconds PTT Ratio Sodium (136-145) mmol/L Potassium (3.5-5.1) mmol/L Chloride (98-107) mmol/L Carbon Dioxide (21-32) mmol/L Anion Gap (3-11) BUN (7-18) mg/dl Creatinine (0.6-1.4) mg/dl Est Cr Clr Drug Dosing Est GFR ( Amer) Est GFR (Non-Af Amer) BUN/Creatinine Ratio (10-20) Glucose (70-99) mg/dl Lactate (0.4-2.0) mmol/L Calcium (8.5-10.1) mg/dl Total Bilirubin (0.2-1) mg/dl Direct Bilirubin (0-0.2) mg/dl AST (15-37) U/L ALT (12-78) U/L Alkaline Phosphatase (45-117) U/L Troponin I (0-0.045) ng/ml Total Protein (6.4-8.2) gm/dl Albumin (3.4-5.0) gm/dl Globulin (2.5-4.0) gm/dl Albumin/Globulin Ratio (0.9-2) Procalcitonin (0-0.5) ng/ml Urine Color Urine Appearance (Clear) Urine pH (4.5-7.5) Ur Specific [place] (1.000-1.030) Urine Protein (Negative) Urine Glucose (UA) (Negative) Urine Ketones (Negative) Urine Blood (Negative) Urine Nitrite (Negative) Urine Bilirubin (Negative) Urine Urobilinogen (Negative) Ur Leukocyte Esterase (Negative) Nasal Screen MRSA (PCR) Negative (Negative) COVID-19 Eval Order SARS-CoV-2, RNA, NAAT (NEGATIVE) Blood Type A Positive Blood Type Recheck Antibody Screen NEGATIVE Crossmatch See Detail Administered Medications Discontinued Medications Aspirin ([facility] 81 Mg Ectab) [facility] [place] Stop: 08/02/20 08:59 Last Admin: 07/04/20 07:56 Dose: 81 mg Documented by: [id number] Admin: 07/03/20 08:09 Dose: 81 mg Documented by: [id number] Atorvastatin Calcium (Atorvastatin 40 Mg Tab) 40 mg PO [facility] Stop: 08/01/20 20:59 Last Admin: 07/03/20 20:36 Dose: 40 mg Documented by: [id number] Admin: 07/02/20 20:54 Dose: 40 mg Documented by: [id number] Baclofen (Baclofen 10 Mg Tab) 10 mg PO BID ONE Stop: 07/02/20 16:43 Last Admin: 07/02/20 20:01 Dose: Not Given Documented by: [id number] Baclofen (Baclofen 10 Mg Tab) Confirm Administered Dose 10 mg .ROUTE .STK-MED ONE Stop: 07/02/20 17:55 Last Admin: 07/02/20 18:19 Dose: 10 mg Documented by: [id number] Baclofen (Baclofen 10 Mg Tab) 10 mg PO BID PRN PRN Reason: hiccups Stop: 08/01/20 19:29 Last Admin: 07/04/20 08:01 Dose: 10 mg Documented by: [id number] Baclofen (Baclofen 10 Mg Tab) 10 mg PO ONE PRN PRN Reason: Hiccups Last Admin: 07/03/20 00:28 Dose: 10 mg Documented by: [id number] Chlorpromazine HCl (Chlorpromazine Hcl 25 Mg Tab) 12.5 mg PO NOW ONE Stop: 07/03/20 10:25 Last Admin: 07/03/20 11:00 Dose: 12.5 mg Documented by: [id number] Chlorpromazine HCl (Chlorpromazine Hcl 25 Mg Tab) 25 mg PO ONE ONE Stop: 07/04/20 10:46 Last Admin: 07/04/20 11:03 Dose: 25 mg Documented by: [id number] Chlorpromazine HCl (Chlorpromazine Hcl 25 Mg Tab) 25 mg PO NOW ONE Stop: 07/04/20 13:27 Last Admin: 07/04/20 14:03 Dose: 25 mg Documented by: [id number] Enoxaparin Sodium (Enoxaparin Inj 40 Mg/0.4 Ml Syr) 40 mg SQ QAM [facility] Stop: 08/02/20 08:59 Last Admin: 07/04/20 07:56 Dose: 40 mg Documented by: [id number] Admin: 07/03/20 08:08 Dose: 40 mg Documented by: [id number] Famotidine (Famotidine 20 Mg Tab) 20 mg PO BID [facility] Stop: 08/03/20 10:44 Last Admin: 07/04/20 11:17 Dose: 20 mg Documented by: [id number] Ferrous Gluconate (Ferrous Gluconate 324 Mg Tab) [facility] [place] Stop: 08/02/20 08:59 Last Admin: 07/04/20 07:55 Dose: 324 mg Documented by: [id number] Admin: 07/03/20 08:09 Dose: 324 mg Documented by: [id number] Fish Oil ([place]-3 (Purified Fish Oil) 1 Gm Cap) [facility] [place] Stop: 08/02/20 08:59 Last Admin: 07/04/20 07:57 Dose: 1 gm Documented by: [id number] Admin: 07/03/20 08:09 Dose: 1 gm Documented by: [id number] Hydroxychloroquine Sulfate (Hydroxychloroquine Sulfate 200 Mg Tab) [facility] [place] Stop: 08/02/20 08:59 Last Admin: 07/04/20 07:56 Dose: 200 mg Documented by: [id number] Admin: 07/03/20 08:09 Dose: 200 mg Documented by: [id number] Sodium Chloride (Nss 1000ml) 1,000 mls @ 125 mls/hr IV .Q8H [facility] Stop: 07/02/20 19:29 Last Infusion: 07/02/20 19:59 Dose: 0 mls/hr Documented by: [id number] Admin: 07/02/20 12:07 Dose: 125 mls/hr Documented by: [id number] Cefepime HCl (Maxipime) 2,000 mg in 12.5 mls @ 3.125 mls/min IV NOW STA Stop: 07/02/20 11:28 Last Admin: 07/02/20 12:26 Dose: 3.125 mls/min Documented by: [id number] Cefepime HCl 2,000 mg/ Syringe 20 mls @ 5 mls/min IV Q8H [facility]; Protocol Stop: 07/10/20 09:59 Last Admin: 07/03/20 09:48 Dose: 5 mls/min Documented by: [id number] Albumin Human (Albumin 25%) 12.5 gm in 50 mls @ 50 mls/hr IV Q1H [facility] Stop: 07/04/20 09:59 Last Infusion: 07/04/20 09:30 Dose: 0 mls/hr Documented by: [id number] Admin: 07/04/20 08:36 Dose: 50 mls/hr Documented by: [id number] Infusion: 07/04/20 08:36 Dose: 50 mls/hr Documented by: [id number] Admin: 07/04/20 07:55 Dose: 50 mls/hr Documented by: [id number] Levothyroxine Sodium (Levothyroxine Sodium 200 Mcg Tablet) 200 mcg PO DAILYBB [facility] Stop: 08/02/20 06:29 Last Admin: 07/04/20 06:14 Dose: 200 mcg Documented by: [id number] Admin: 07/03/20 06:15 Dose: 200 mcg Documented by: [id number] Metoprolol Succinate (Metoprolol Succ 25mg Ext Rel Tab) 37.5 mg PO QAM [facility] Stop: 08/02/20 20:24 Last Admin: 07/04/20 07:57 Dose: 37.5 mg Documented by: [id number] Admin: 07/03/20 21:47 Dose: 37.5 mg Documented by: [id number] Miscellaneous (*Silodosin*Order Awaiting Action) 1 ea N/A QS [facility] Stop: 08/02/20 00:00 Last Admin: 07/04/20 11:33 Dose: Not Given Documented by: [id number] Admin: 07/04/20 07:55 Dose: Not Given Documented by: [id number] Admin: 07/04/20 00:07 Dose: Not Given Documented by: [id number] Admin: 07/03/20 16:00 Dose: Not Given Documented by: [id number] Admin: 07/03/20 08:08 Dose: Not Given Documented by: [id number] Admin: 07/02/20 23:28 Dose: Not Given Documented by: [id number] Multi-Ingredient Cream (Eucerin Cr 120 Gm Jar) 1 appln EXT BID PRN PRN Reason: Rash Stop: 08/02/20 15:01 Last Admin: 07/03/20 16:25 Dose: 1 appln Documented by: [id number] Pantoprazole Sodium (Pantoprazole 40 Mg Tab) 40 mg PO [facility] Stop: 08/01/20 20:59 Last Admin: 07/03/20 20:37 Dose: 40 mg Documented by: [id number] Admin: 07/02/20 20:54 Dose: 40 mg Documented by: [id number] Sertraline HCl (Sertraline Hcl 50 Mg Tablet) 25 mg PO [facility] Stop: 08/01/20 20:59 Last Admin: 07/03/20 20:37 Dose: 25 mg Documented by: [id number] Admin: 07/02/20 20:52 Dose: 25 mg Documented by: [id number] Vitamin B Complex (Vitamin B Complex Tab) [facility] [place] Stop: 08/02/20 08:59 Last Admin: 07/04/20 07:57 Dose: 1 tab Documented by: [id number] Admin: 07/03/20 08:09 Dose: 1 tab Documented by: [id number] Discharge Plan Visit Data Chief Complaint: Hypotension Stated Complaint: BP REALLY LOW,RASH, S/P CHEMO ED Provider: Randa De La Garza Discharge Problem: Nonblanching rash, Redness and swelling of lower leg, Pancreatic cancer Patient Disposition: Admitted As Inpatient Discharge Instructions Interventions: ED Discharge Assessment Last Done: 07/02/20 19:11 Discharge Problem: Pancreatic cancer Qualifiers: Pancreatic malignancy location: unspecified Qualified Code(s): C25.9 - Malignant neoplasm of pancreas, unspecified
[2020-07-04] MEDS: LEVOTHYROXINE SODIUM 200 MCG TABLET PO SCH (06:14)
[2020-07-04 06:34] LABS: Hematocrit (blood only) 25.7 % (42-52); Hemoglobin 8.8 g/dL (14.0-18.0); Mean Corpuscular Hemoglobin 30.6 pg (25-34); Mean Corpuscular Hgb Conc 34.2 g/dL (32-36); Mean Corpuscular Volume 89.2 fL (80-100); RDW Coefficient of Variation 14.1 % (11.5-14.5); RDW Standard Deviation 46.4 fL (36.4-46.3); Red Blood Count 2.88 M/uL (4.7-6.1); White Blood Count 2.66 K/uL (4.8-10.8)
[2020-07-04 06:42] LABS: Mean Platelet Volume 11.2 fL (7.4-10.4); Platelet Count 96 K/uL (130-400)
[2020-07-04 06:56] LABS: Basophils # (auto) 0.01 K/uL (0-0.2); Basophils % (auto) 0.4 %; Eosinophils # (auto) 0.01 K/uL (0-0.5); Eosinophils % (auto) 0.4 %; Immature Granulocytes # (auto) 0.02 K/uL (0.00-0.02); Immature Granulocytes % (auto) 0.8 %; Lymphocytes # (auto) 0.79 K/uL (1.2-3.4); Lymphocytes % (auto) 29.7 %; Monocytes # (auto) 0.06 K/uL (0.11-0.59); Monocytes % (auto) 2.3 %; Neutrophils # (auto) 1.77 K/uL (1.4-6.5); Neutrophils % (auto) 66.4 %
[2020-07-04 06:59] LABS: BUN Creatinine Ratio 17.9 (10-20); Bilirubin Direct 0.6 mg/dl (0-0.2); Calcium 8.9 mg/dl (8.5-10.1); Creatinine Clr Calc Pharmacy 79.5 ml/min; Est GFR (African American) 95.4; Est GFR (Non-African American) 82.3; Potassium 4.3 mmol/L (3.5-5.1)
[2020-07-04 07:09] LABS: Bilirubin,Total 1.1 mg/dl (0.2-1); Thyroid Stimulating Hormone 3.76 uIu/ml (0.300-4.500); Total Protein 5.5 gm/dl (6.4-8.2)
[2020-07-04 07:10] LABS: Estimated Average Glucose 163 mg/dl; Hemoglobin A1C 7.3 % (4.5-5.6)
[2020-07-04] MEDS: ALBUMIN 25% 12.5 GM/50 ML VIAL IV SCH ×2 (07:55→08:36)
[2020-07-04] MEDS: FERROUS GLUCONATE 324 MG TAB PO SCH (07:55)
[2020-07-04] MEDS: ENOXAPARIN INJ 40 MG/0.4 ML SYR SQ SCH (07:56)
[2020-07-04] MEDS: ASPIRIN 81 MG ECTAB PO SCH (07:56)
[2020-07-04] MEDS: HYDROXYCHLOROQUINE SULFATE 200 MG TAB PO SCH (07:56)
[2020-07-04] MEDS: METOPROLOL SUCC 25MG EXT REL TAB PO SCH (07:57)
[2020-07-04] MEDS: OMEGA-3 (PURIFIED FISH OIL) 1 GM CAP PO SCH (07:57)
[2020-07-04] MEDS: VITAMIN B COMPLEX TAB PO SCH (07:57)
--- NOTE | 2020-07-04 09:58 | Electrocardiogram Report ---
Test Reason : Blood Pressure : / mmHG Vent. Rate : 060 BPM Atrial Rate : 060 BPM P-R Int : 278 ms QRS Dur : 088 ms QT Int : 450 ms P-R-T Axes : 058 075 062 degrees QTc Int : 450 ms Atrial-paced rhythm with prolonged AV conduction Abnormal ECG When compared with ECG of 03-JUL-2020 06:34, No significant change was found Confirmed by Mikel Chang ([id number]) on 07/04/2020 9:57:54 AM Referred By: REFERRED SELF Confirmed By:Orion Chang
[2020-07-04] MEDS ORDERED: chlorproMAZINE HCL 25 MG TAB PO ONE ×2 (10:45→13:26)
[2020-07-04] MEDS ORDERED: FAMOTIDINE 20 MG TAB PO SCH (10:45)
--- NOTE | 2020-07-04 12:38 | Consultation Report ---
DATE OF CONSULTATION: 07/04/2020 GASTROINTESTINAL CONSULT NOTE REASON FOR EVALUATION: Heme-positive stool and anemia. HISTORY OF PRESENT ILLNESS: The patient is an 80-year-old who I saw in May in the outpatient clinic with new-onset painless jaundice. An ultrasound had shown a 2-3 cm mass in the head of the pancreas and he was referred to [facility] where he subsequently underwent on 05/14 an ERCP and EUS. The EUS showed a 23 x 17 mm mass in the head of the pancreas that was biopsied and came back positive for adenocarcinoma. 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 His jaundice improved and he has felt much better. He was seen by oncology and surgery, and there were some regional lymph nodes that were enlarged. It was decided to proceed with chemotherapy and he has received 2 rounds of IV chemo on 06/21 and 06/28 with gemcitabine and Abraxane. The patient was seen in followup for an Infusaport placement and was noted to be hypotensive and referred to the hospital where he was admitted. The patient reports no abdominal pain, no blood in his stool. No nausea or vomiting. He does take a baby aspirin. His stool was noted to be heme positive. His anemia was attributed to his chemotherapy. He did have a colonoscopy on 02/17/2018 and three 5 mm polyps, two tubular adenomas and one sessile adenoma were removed, and he had some hemorrhoids. He did have upper endoscopy in early May during his endoscopic evaluation at [facility]; no obvious ulcerations were found. His albumin is low and he has been started on Boost supplements. PHYSICAL EXAMINATION: GENERAL: The patient appears in no acute distress. He is awake, alert and sitting in the bedside chair, eating his lunch. VITAL SIGNS: Blood pressure is 145/66, pulse 58, respirations 18, room air saturations 96%. ABDOMEN: Soft and nontender. EXTREMITIES: Showed some venous stasis in his lower extremities. IMPRESSION AND PLAN: The patient's anemia is due to his chemotherapy. His heme-positive stool is likely from the metal stent or maybe some gastric irritation from his aspirin. I do not think endoscopic intervention is necessary at this time. I would recommend that consideration be given to switching him off aspirin on to some other medication to prevent clots that does not have the potential for gastric irritation and ulceration. I think, as an outpatient, his chemotherapy regimen may need to be adjusted to prevent further side effects.
--- NOTE | 2020-07-04 13:28 | Discharge Summary ---
Date of Service July 04, 2020 Admission HPI Per Admitting Provider 80 y/o M who was sent here from Dr. Elam's office for a BP 88/36 upon arrival to the office. Pt was going to see Dr. Elam for a routine follow up on his recently placed port. He was very weak upon arrival and required assistance to get from the car inside. His BP was checked and it was noted as above. Pt states that he had his second dose of chemo for pancreatic cancer on 06/28. His first dose was the prior. He states that since starting chemo, he has felt overall more weak. He has had a few episodes where he was standing and felt he just could no longer support his weight, causing collapse. No LOC or pre-syncope with this. Since the second dose of chemo, his states that he has needed more help with things like getting into and out of the car. He has needed more support with walking. It was also noted Thursday night that pt had a rash on his LE. It has continued to spread. It is worse on the lower LE, but there is a light rash on the upper thighs as well. It does not itch. There is b/l LE swelling that started around the same time, so it feels tight, but no other pain. Pt wears Depends and they feel this is from having skin contact with urine when he pulls the Depends up and down as they were told to not have direct contact with his urine or feces since starting chemo. Pt states he otherwise feels fine. Pt denies fever, SOB, chest pain, abd pain, n/v/c/d. He has been eating without issue. Plan for pt's pancreatic cancer is chemo to shrink the mass, then surgical removal, then further chemo. Pt does have a bile duct stent in place. He had very yellow urine prior to the stent placement. states it is a bit yellow now, but nothing like pre-stent. Pt was recently started on baclofen for issues with intractable hiccups. He has taken 3 doses of this, none today. Admission Exam Per Admitting Provider Constitutional: WD/WN, vitals as above Eyes: normal visual gonzalez by confrontation and + anicteric sclerae Neck: normal visual inspection and trachea midline Respiratory: normal respiratory effort, lungs clear to auscultation Cardiovascular: Rate/Rhythm: regular rate and regular rhythm Gastrointestinal (Abdomen): Inspection/Auscultation: abdomen not distended Percussion/Palpation: abdomen soft; abdomen nontender Musculoskeletal: Head/Neck/Chest: normocephalic and head atraumatic negative for edema, peripheral pulses intact Skin: b/l LE rash that is most pronounced along b/l lower LE. Lines drawn around this dark red, flat rash Rn Cardiovascular pink rash noted along thighs b/l, dashed lines drawn along this region. Of note, this is a very angular rash on the R later thigh that states is the same as the outline of his pants pocket Neurologic: awake; not confused Speech / Cognition: normal speech Psychiatric: A+Ox3, euthymic affect Principal Diagnosis Hypotension, Anemia, Pigmented Purpuric Dermatosis Discharge Exam Constitutional WD/WN, vitals as above Eyes normal visual gonzalez by confrontation and + anicteric sclerae ENMT mmm dried crusted blood to b/l nares from nose bleed this AM Neck normal visual inspection and trachea midline Respiratory normal respiratory effort, lungs clear to auscultation Cardiovascular Rate/Rhythm: regular rate and regular rhythm Chest (Breasts) Additional Comments: A-port present R chest Pacemaker to L chest Gastrointestinal (Abdomen) Inspection/Auscultation: normal bowel sounds; abdomen not distended Percussion/Palpation: abdomen soft; abdomen nontender Musculoskeletal Head/Neck/Chest: normocephalic and head atraumatic Skin improving edema (1+ b/l), erythema/violaceous patches within markings, continues to recede non-blanchable petechiae to b/l srivastava/calf decreased tenderness to calves slightly jaundiced NVI pulses palpable bilaterally Neurologic awake; not confused Speech / Cognition: normal speech Psychiatric A+Ox3, euthymic affect Lymphatic no cervical or axillary lymphadenopathy Discharge Data Allergies Allergy/AdvReac Type Severity Reaction Status Date / Time paroxetine [From Paxil] Allergy Unknown Unknown Verified 07/02/20 09:13 ranolazine [From Ranexa] Allergy Unknown URINARY Verified 07/02/20 09:13 LEAKING PROBLEMS PAULINO Inhibitors AdvReac Mild COUGH Verified 07/02/20 09:13 Sulfa (Sulfonamide AdvReac Mild SICK IN Verified 07/02/20 09:13 Antibiotics) STOMACH tamsulosin AdvReac Mild DIZZINESS Verified 07/02/20 09:13 Consultations 07/02/20 15:53 ED Decision to Admit Stat 07/02/20 19:30 Consult Case Management - Discharge Planning Routine Consult Hematology Routine 07/03/20 09:52 Consult Dermatology Routine 07/04/20 09:22 Consult Gastroenterology Routine Ordered Studies 07/02/20 11:27 US venous doppler LE Stat CXR Hospital Course (1) Hypotension: * BP 80s/50s at f/u appt at Dr. 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 afebrile * WBC low but in setting of chemo. Procal 0.32. Lactic wnl * Dr. 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 Also placed on compression stockings and to continue at discharge. Did not appear to be drug reaction or vasculitis. * Placed on Eucerin cream BID and recommendations for OTC Cetaphil BID at discharge once Eucerin completed that he had while inpatient. May leave discoloration to his skin once resolved. * edema also improved with albumin x 2 doses 07/04 -- encouraged boost supplementation at discharge to improve nutritional status (low albumin) * To follow up with PCP/heme-onc outpatient (3) Redness and swelling of lower leg: * see above -- improving (4) Antineoplastic chemotherapy induced pancytopenia: * pancytopenia d/t recent chemotherapy * oncology consulted * cbc monitored * expect improvement over next several days (5) Anemia: * Hgb low at 7.8 and given 1 unit PRBC with repeat up to 8.8 * Patient did have small nose bleed that resolved with pressure prior to discharge * + fecal occult and GI was consulted. * Recent EGD 3 months ago with Aneta without ulcer or malignancy. * C-scope 2018 with tubular adenoma and rec for repeat c-scope this year as he stated "they said 3 years for follow up" * GI consulted -- felt + fecal occult could be from pancreatic stent. patient also has hemorrhoids but denied any noticeable blood in his stool. To continue iron supplementation as previously taking at discharge * On ASA for hx CAD s/p CABG 20 years ago and was discussed with Dr. Manuel who recommends switching his ASA to every other day and would increase protonix to BID vs adding H2. * Patient discharged on ASA 81mg QOD and Protonix 40mg daily. Added Pepcid (6) Elevated LFTs: * Bile stent in place * Secondary to pancreatic ca/above * Tbili 1.1, SAT 48, ALT 111, ALk phos 144 * Follow up on outpatient labs * Not symptomatic. No abdominal pain. (7) Port-A-Cath in place: * Checked by Dr. Elam 07/02 and no current issues * f/u routine (8) Anxiety: * continue home meds -- sertraline 25mg daily and lorazepam prn (9) Depression: * continue home meds as above (10) Pancreatic adenocarcinoma: * Recently started weekly chemo, last dose was 06/28 * Locally advanced and will unlikely be surgical candidate * Dr Bonilla on consult as above * Would benefit from palliative consultation in the future if condition continues to decline (11) Hypertension: * Held benicar and metoprolol initially but resumed metoprolol on 07/03 * To resume reduced dose as previously taking of his benicar as prescribed by Dr. Manuel at discharge * BP 145/66 (12) Hypothyroidism: * TSH 3.76 * continued home levothyroxine 200mcg daily (13) Diabetes: * States pre-DM * No hx of medication use * Checked A1c with Am labs --> A1c 7.3 * Discussed given pancreatic CA he may need insulin in the future but can follow up with PCP for repeat value and can initiate hyperglycemic agent if continues to be elevated (likely will) (14) Hyperlipidemia: * continued home atorvastatin 40mg (15) GERD (gastroesophageal reflux disease): * continued home protonix 40mg * Added pepcid and continued at discharge. See above under anemia (16) Coronary artery disease: * CABG 20 yrs ago * Aspirin 81mg * Continued BB, benicar at discharge * Follows with Dr. Manuel locally (17) BPH w urinary obs/LUTS: * continued home meds (18) Aortic stenosis: * Monitor with IVF * Euvolemic on exam (19) Rheumatoid arthritis: * Plaquenil 200 daily * Follows with Dr. Lauren (20) Obstructive sleep apnea: * CPAP ordered HS -- he states he tries to use this but does sometimes not put it back on at night due to frequently getting up to urinate * Encouraged better compliance (21) Pacemaker: * noted -- should have follow up with cardiology outpatient as he has been paced during admission in the 60s on monitor * Most recent interrogation Apr 2020. (22) Intractable hiccups: * Recently started on baclofen * Hx of needing hospitalization for hiccups lasting over 3 days many years ago * Thorazine 12.5mg dose x [address] Bonilla --25mg was too much. Tolerated 25mg dose prior to discharge and was sent rx at discharge. Aware of interaction with HCQ * EKG with QTc 450ms (23) DVT prophylaxis: * Lovenox, SCDs for DVT proph while inpatient * To utilize compression stockings at discharge for edema Pt notes that he is full code, but "nothing heroic". 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 Discharged home. Total Time Total Time Spent Total Time Spent (In Minutes): 70 Discharge Plan Discharge Items Patient Disposition: Home - Self-Care Reason For Visit: HYPOTENSION, ANEMIA Discharge Diagnosis: hypotension, anemia, rash Goals: You have been hospitalized for an acute medical problem. During your stay at [facility], we have made an effort to correct the problem that brought you to the hospital while keeping you as comfortable as possible. Medications were used to bring your condition under control and your discharge instructions will include directions for any medications you should take after leaving the hospital. Please make sure you see your Primary Care Provider as part of your follow up plan. Activity: Resume your previous activity Non-emergency contact: Primary Care Provider and Oncologist Call non-emergency contact if: you have any medication questions, your symptoms worsen and you have a fever Follow-up/Referrals: Slick Bonilla V., [Physician] - CarlosShemar [Primary Care Provider] - 07/10/20 12:50 pm Diet: Heart Healthy Addtl Attending Provider Instructions: You have been hospitalized for low blood pressure and anemia. You were transfused 1 unit of blood and your repeat hemoglobin is now in acceptable range. Likely this was due to chemo, however your stool was positive for blood. GI was consulted and believes this may be related to your pancreatic stent. 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 You should also continue lower dose of your blood pressure medication at the 10mg olmesartan/HCTZ as previously on and please check your blood pressures. No intervention is needed at this time per GI. Please follow up with GI for routine repeat colonoscopy in the next year. Your A1c was elevated as we discussed, but you can watch diet/exercise and have follow up with your PCP about possibly starting metformin. Given your pancreatic disease, this is not surprising as that is where your insulin is produced. You may end up needing insulin in the future if this level continues to rise on repeat lab draws. Your nutrition is poor, with low albumin, and you were given IV replacement to help with some of your edema. This has improved, as well as your rash. You should continue to utilize boost supplements with meals to help with your nutrition and also utilize compression stocking to help keep swelling at baseline. You have been evaluated by dermatology and felt this was related to blood pressure and edema and possibly medication, but that you should continue over the counter Cetaphil twice daily. You can utilize the Eucerin cream as used in the hospital and then utilize the Cetaphil once that is completed. Please return to the emergency department or alert your PCP if your swelling/redness increases or if you spike a fever. Blood cultures have been negative thus far. You have been sent a prescription for thorazine to use as needed for hiccups as recommended by Dr. Bonilla. You should follow up with Dr. Bonilla for chemotherapy as previously scheduled. Please follow up with Dr. Elam as well for follow up of your A-port. Please follow up with PCP in the next week to monitor your progress. Please return to the emergency room with any fever, chills, worsening swelling/pain, bleeding, or for any other symptoms that are concerning for you. It has been a pleasure being a part of the medical team providing for you while you have been in the hospital. Take care! Pending Studies at Discharge: Yes Studies:: Blood cultures -- no growth to date Stand-Alone Forms: My [facility] Medications and DC Order Prescriptions: New famotidine 20 mg Tablet 20 mg PO BID 30 Days Qty: 60 RF: 0 Dermacerin Cream 1 applic EXT BID PRN (Reason: dry skin) Qty: 2568 RF: 0 chlorpromazine 25 mg tablet 25 mg PO Q6H PRN (Reason: hiccups) Qty: 10 RF: 0 Continued sertraline [Zoloft] 25 mg tablet 25 mg PO HS RF: 0 omega-3 acid ethyl esters 1 gram capsule 1 cap PO QAM RF: 0 levothyroxine 200 mcg capsule 200 mcg PO QAM RF: 0 atorvastatin 80 mg Tablet 40 mg PO HS RF: 0 lorazepam 0.5 mg Tablet 0.5 mg PO HS PRN (Reason: Sleep) RF: 0 pantoprazole [Protonix] 40 mg Tablet,Delayed Release (Dr/Ec) 40 mg PO HS RF: 0 vitamin B complex Tablet 1 tab PO QAM RF: 0 metoprolol succinate 25 mg Tablet Extended Release 24 Hr 1.5 tab PO QAM RF: 0 hydroxychloroquine 200 mg Tablet 200 mg PO QAM RF: 0 baclofen 10 mg tablet 10 mg PO DAILY RF: 0 silodosin 4 mg capsule 4 mg PO DAILY RF: 0 ferrous gluconate 324 mg (37.5 mg iron) Tablet 324 mg PO QAM RF: 0 Changed olmesartan-hydrochlorothiazide [Benicar HCT] 40-12.5 mg tablet 0.25 tab PO QAM Qty: 0 RF: 0 aspirin 81 mg Tablet,Delayed Release (Dr/Ec) 81 mg PO Q2D Qty: 0 RF: 0 Discharge Orders: Discharge Order (Routine); Ordered 07/04/20 Ordered By: Linda Gaitan/Other Patient Handouts: High Blood Sugar (Hyperglycemia), Managing Type 2 Diabetes, Managing Diabetes: The A1C Test Admission Data Admit Date/Time: 07/03/20 10:32 Attending Provider: Lela Whipple Admit Provider: Jodie Thakkar Primary Care Provider: Shemar Gonzalez Other Providers: Jodie Thakkar ; Jefferson Frost ; Harsha Dawson ; Oswald Frederick Other Interventions: Discharge Summary Assessment (RN) Last Done: 07/04/20 13:56 Supervising Physician Co-Signing Physician Notes PA Supervision Note: I personally saw and examined the patient. I verified all alvarado points and agree with SHANNA Williamson with the following exceptions and/or additions: Patient much improved, blood pressures are normal. He feels well. Leg swelling is down. Appreciate dermatology in oncology consultations. No chest pain or shortness of breath VSS NAD, AAOx3 RRR no mgr CTAB no wcr ABd +BS soft NT ND Ext 1-2+ pitting edema bilat improved from previous with purple, nonblanching macular rash in patches on anterior legs, no rash anywhere else on body, no erythema, no vesicles 80 yo M here with hypotension liekly related to anemia and dehydration from recent chemo, also with abnormal rash and LE edema. Dopplers neg for DVT, likely from low albumin in setting of chemotherapy. No need for further antibiotics as this is not cellulitis Appreciate DERM consult Transfused 1 unit PRBCs and follow CBC as an outpatient Consult Nutrition to assist with improving albumin-appreciated Stable for discharge Coding Level of Care Code D/C Day Management >30 mins Diagnoses Hypotension I95.9 Pigmented purpuric dermatosis L81.7 Redness and swelling of lower leg M79.89; R23.8 Antineoplastic chemotherapy induced pancytopenia D61.810; T45.1X5A Anemia D64.9 Elevated LFTs R79.89 Port-A-Cath in place Z95.828 Anxiety F41.9 Depression F32.9 Pancreatic adenocarcinoma C25.9 Hypertension I10 Hypothyroidism E03.9 Diabetes E11.9 Hyperlipidemia E78.5 GERD (gastroesophageal reflux disease) K21.9 Coronary artery disease I25.10 BPH w urinary obs/LUTS N40.1; N13.8 Aortic stenosis I35.0 Rheumatoid arthritis M06.9 Obstructive sleep apnea G47.33 Pacemaker Z95.0 Intractable hiccups R06.6 DVT prophylaxis Z29.9
== END 2020-07-04 15:19 | disposition home or self-care (01) ==
LOC: ED 10:15 → INTOOBSV 16:46 → SUATTDRO 16:46 → 2S 16:46

== ENCOUNTER 2020-07-09 11:52 | Inpatient (IN) ==
--- NOTE | 2020-07-09 12:34 | Emergency Department Note ---
History of Present Illness General Chief complaint: Fall Time Seen by Provider: 07/09/20 12:00 Source: patient Mode of arrival: EMS Limitations: patient cooperation History of Present Illness Provider complaint: Weakness, diarrhea Onset (ago): day(s) 3 Severity: moderate Associated symptoms: + malaise and + weakness; no chest pain, no fever/chills, no loss of appetite, no nausea/vomiting and no shortness of breath Treatments prior to arrival: none This is an 80-year-old male who presents from home due to concern for persistent diarrhea and increased weakness. Patient states while trying to go to the bathroom several times a day, he has felt his legs have been increasingly weak and would occasionally give out and he would fall down landing on his butt. Patient denies any other head trauma, back injury, or other extremity injury. Patient states at one point this happened in the shower and EMS had to be called to help get him out. Patient states today he had yet another episode and felt too weak to get up. Patient denies any accompanying syncopal events although states he feels very close to this as he has significant lightheadedness with it. Patient states the diarrhea is thought to be related to his chemotherapy. Patient states his last chemo infusion was on . Patient states he is getting this for pancreatic cancer. Patient states he does have a port. Patient states he has been eating intermittently and is trying to stay hydrated. He denies any accompanying fevers or chills. Patient denies any chest pain or abdominal pain. Patient states he has had lower extremity redness and swelling since the infusion started. He states his oncologist is aware of this. Pt seen during a time of high acuity and national emergency pandemic while wearing PPE. Home Medications Medication Instructions Recorded Confirmed Type atorvastatin 40 mg PO HS 02/05/18 07/09/20 History hydroxychloroquine 200 mg PO QAM 02/05/18 07/09/20 History lorazepam 0.5 mg PO HS PRN 02/05/18 07/09/20 History metoprolol succinate 1.5 tab PO QAM 02/05/18 07/09/20 History pantoprazole [Protonix] 40 mg PO HS 02/05/18 07/09/20 History vitamin B complex 1 tab PO QAM 02/05/18 07/09/20 History levothyroxine 200 mcg capsule 200 mcg PO QAM 06/12/20 07/09/20 History omega-3 acid ethyl esters 1 gram 1 cap PO QAM 06/12/20 07/09/20 History capsule sertraline 25 mg tablet 25 mg PO HS 06/12/20 07/09/20 History baclofen 10 mg PO DAILY 07/02/20 07/09/20 History ferrous gluconate 324 mg PO QAM 07/02/20 07/09/20 History silodosin 4 mg PO DAILY 07/02/20 07/09/20 History aspirin 81 mg PO Q2D #0 tab 07/04/20 07/09/20 Rx chlorpromazine 25 mg PO Q6H PRN #10 tab 07/04/20 07/09/20 Rx famotidine 20 mg PO BID 30 Days #60 tab 07/04/20 07/09/20 Rx olmesartan-hydrochlorothiazide 0.25 tab PO QAM #0 tab 07/04/20 07/09/20 Rx [Benicar HCT] white petrolatum-mineral oil 1 applic EXT BID PRN #2568 g 07/04/20 07/09/20 Rx [Dermacerin] Allergies Allergy/AdvReac Type Severity Reaction Status Date / Time paroxetine [From Paxil] Allergy Unknown Unknown Verified 07/09/20 14:03 ranolazine [From Ranexa] Allergy Unknown URINARY Verified 07/09/20 14:03 LEAKING PROBLEMS PAULINO Inhibitors AdvReac Mild COUGH Verified 07/09/20 14:03 Sulfa (Sulfonamide AdvReac Mild SICK IN Verified 07/09/20 14:03 Antibiotics) STOMACH tamsulosin AdvReac Mild DIZZINESS Verified 07/09/20 14:03 Past Med/Surg History Medical History Aortic stenosis MODERATE PER 05/2019 ECHO BPH w urinary obs/LUTS Cancer PANCREATIC CANCER Carotid stenosis History of known severe high-grade external carotid stenosis with less than 50% bilateral internal carotid artery stenosis per 02/2020 cardio note Chest pain NO RECENT ISSUES PER NURSING INTERVIEW CHF (congestive heart failure) Coronary artery disease S/p 4 vessel CABG Diabetes DIET MANAGED GERD (gastroesophageal reflux disease) Hyperlipidemia Hypertension Hypothyroidism Obstructive sleep apnea CPAP-OCC USE Pacemaker PLACED 2016- [employer]BRADYCARDIA (CHRONOTROPIC INCOMPETENCE)/FOLLOWED BY DR. COPPOLA Rheumatoid arthritis Surgical History Cardiac pacemaker in situ Difficult airway for intubation HEART CATH PROCEDURE- CATH PROCEDURES FOR 2009, 2011, 2015 REVIEWED- NO DOCUMENTATION OF AIRWAY ISSUES History of anesthesia reaction "GROGGY FOR A FEW DAYS" History of cardiac cath NO STENTS History of cataract surgery LEFT/RIGHT History of colonoscopy History of coronary artery bypass graft X 4 VESSELS 1999 History of esophagogastroduodenoscopy (EGD) History of tonsillectomy History of tooth extraction GUM SURGERY Port-A-Cath in place (06/19/20) Insertion of Mediport with Fluoroscopy Dr. Elam 06/19/2020 Family History Family/Other Family history of diabetes mellitus PATERNAL AUNT Father Heart disease Brother Cancer Mother Cancer Son Family history of diabetes mellitus Other Coronary heart disease Obstructive sleep apnea Social History Smoking Status: Never smoker Years Smoked: 5; Number of Years Since Quit: 50; Second Hand Exposure: No; Hx Alcohol Use: No Hx Substance Use: No Preferred Language: Croatian Communication Ability: Effective Retail Field Representative Required: No Beliefs That Will Affect Care: None marital status: Current Living Situation: Spouse current occupational status: retired 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 and A total of 10 systems reviewed and were otherwise negative Physical Exam Vital Signs Vital Signs - 24 hr 07/09/20 11:39 07/09/20 12:33 07/09/20 12:42 Temperature 36.4 C L Temperature Source Oral Pulse Rate 69 61 72 Respiratory Rate 18 20 23 Respiratory Effort / Characteristics Spontaneous Blood Pressure 117/69 124/68 Blood Pressure Mean 85 86 Pulse Oximetry 98 Oxygen Delivery Method Room Air Sepsis Recent Fever Within 48 Hours No Sepsis New/Unexplained Change in Mental Status No Sepsis Action Taken by Nursing No Action Required 07/09/20 13:00 07/09/20 13:30 07/09/20 13:55 Temperature Temperature Source Pulse Rate 75 75 75 Respiratory Rate 21 24 20 Respiratory Effort / Characteristics Blood Pressure 121/50 L Blood Pressure Mean 73 Pulse Oximetry Oxygen Delivery Method Sepsis Recent Fever Within 48 Hours Sepsis New/Unexplained Change in Mental Status Sepsis Action Taken by Nursing 07/09/20 13:56 07/09/20 14:00 07/09/20 14:01 Temperature Temperature Source Pulse Rate 75 72 69 Respiratory Rate 19 24 23 Respiratory Effort / Characteristics Blood Pressure 123/50 L Blood Pressure Mean 74 Pulse Oximetry Oxygen Delivery Method Sepsis Recent Fever Within 48 Hours Sepsis New/Unexplained Change in Mental Status Sepsis Action Taken by Nursing 07/09/20 14:02 07/09/20 14:30 07/09/20 15:15 Temperature Temperature Source Pulse Rate 75 74 64 Respiratory Rate 24 23 20 Respiratory Effort / Characteristics Blood Pressure Blood Pressure Mean Pulse Oximetry Oxygen Delivery Method Sepsis Recent Fever Within 48 Hours Sepsis New/Unexplained Change in Mental Status Sepsis Action Taken by Nursing 07/09/20 15:30 07/09/20 16:00 07/09/20 16:30 Temperature Temperature Source Pulse Rate 77 76 62 Respiratory Rate 22 21 20 Respiratory Effort / Characteristics Blood Pressure Blood Pressure Mean Pulse Oximetry Oxygen Delivery Method Sepsis Recent Fever Within 48 Hours Sepsis New/Unexplained Change in Mental Status Sepsis Action Taken by Nursing 07/09/20 17:00 07/09/20 17:30 07/09/20 17:31 Temperature Temperature Source Pulse Rate 65 68 69 Respiratory Rate 20 22 20 Respiratory Effort / Characteristics Blood Pressure 133/61 Blood Pressure Mean 85 Pulse Oximetry Oxygen Delivery Method Sepsis Recent Fever Within 48 Hours Sepsis New/Unexplained Change in Mental Status Sepsis Action Taken by Nursing GENERAL: alert, well appearing, well nourished, no distress, non-toxic EYE EXAM: normal conjunctiva, PERRL and EOM's grossly intact OROPHARYNX: no exudate, no erythema, lips, buccal mucosa, and tongue normal and mucous membranes are moist NECK: supple, no nuchal rigidity, no adenopathy, non-tender LUNGS: Clear to auscultation. Normal chest wall mechanics, no w/r/r HEART: no murmurs, S1 normal and S2 normal ABDOMEN: abdomen soft, non-tender, normo-active bowel sounds, no masses, no rebound or guarding. BACK: Back is symmetrical on inspection and there is no deformity, no midline tenderness, no CVA tenderness. SKIN: no rashes and no bruising, no petechiae UPPER EXTREMITIES: upper extremities are grossly normal. FROM, nml pulses b/l. LOWER EXTREMITIES: 2+ pitting edema. FROM, nml pulses b/l. Erythema noted to bilateral lower extremities nearly circumferential. Compartments soft b/l. NEURO EXAM: Normal sensorium, cranial nerves II-XII grossly intact, normal speech, no gross weakness of arms, no gross weakness of legs. Gross sensation intact. Course Administered Medications Lactated Ringer's (Lr) 1,000 mls @ 200 mls/hr IV .Q5H ANAIS Stop: 08/08/20 12:14 Last Infusion: 07/09/20 18:53 Dose: 0 mls/hr Documented by: [id number] Admin: 07/09/20 13:50 Dose: 200 mls/hr Documented by: [id number] Discontinued Medications Ioversol (Ioversol 100ml) 93 ml IV ONCE ONE Stop: 07/09/20 15:39 Last Admin: 07/09/20 15:38 Dose: 93 ml Documented by: [id number] Medical Decision Making Differential Diagnosis Differential Diagnosis includes but is not limited to dehydration, stroke, anemia, hypoglycemia, hyponatremia, hypernatremia, urinary tract infection, pneumonia, bronchitis, sepsis, gastroenteritis, additional abdominal pathology, metabolic abnormalities and infections. Medical Records Attestation: I reviewed the patient's medical records. Home Medications Current Medication List: was personally reviewed by me Laboratory Data Attestation: I reviewed the patient's lab results. Result diagrams: 07/09/20 12:58 07/09/20 12:58 Lab Results 07/09/20 07/09/20 07/09/20 Range/Units 12:58 12:58 12:58 WBC 3.43 L (4.8-10.8) K/uL RBC 2.57 L (4.7-6.1) M/uL Hgb 7.9 L (14.0-18.0) g/dL Hct 22.8 L (42-52) % MCV 88.7 (80-100) fL MCH 30.7 (25-34) pg MCHC 34.6 (32-36) g/dL RDW Std Deviation 44.9 (36.4-46.3) fL RDW Coeff of Iris 14.0 (11.5-14.5) % Plt Count 114 L (130-400) K/uL MPV 11.9 H (7.4-10.4) fL Immature Gran % (Auto) 3.5 % Neut % (Auto) 76.7 % Lymph % (Auto) 14.0 % Page % (Auto) 5.2 % Eos % (Auto) 0.3 % Baso % (Auto) 0.3 % Neut # (Auto) 2.63 (1.4-6.5) K/uL Lymph # (Auto) 0.48 L (1.2-3.4) K/uL Page # (Auto) 0.18 (0.11-0.59) K/uL Eos # (Auto) 0.01 (0-0.5) K/uL Baso # (Auto) 0.01 (0-0.2) K/uL Immature Gran # (Auto) 0.12 H (0.00-0.02) K/uL Poikilocytosis Present Echinocytes 1+ PT 13.5 H (9.0-12.0) Seconds INR 1.3 H (0.9-1.1) Sodium 129 L (136-145) mmol/L Potassium 4.2 (3.5-5.1) mmol/L Chloride 98 (98-107) mmol/L Carbon Dioxide 23 (21-32) mmol/L Anion Gap 8.0 (3-11) BUN 31 H (7-18) mg/dl Creatinine 1.06 (0.6-1.4) mg/dl Est Cr Clr Drug Dosing 65.7 ml/min Est GFR ( Amer) 76.4 Est GFR (Non-Af Amer) 66.0 BUN/Creatinine Ratio 29.2 H (10-20) Glucose 215 H (70-99) mg/dl Lactate (0.4-2.0) mmol/L Calcium 8.1 L (8.5-10.1) mg/dl Magnesium 1.8 (1.8-2.4) mg/dl Total Bilirubin 1.6 H (0.2-1) mg/dl AST 84 H (15-37) U/L ALT 222 H (12-78) U/L Alkaline Phosphatase 168 H (45-117) U/L Troponin I < 0.015 (0-0.045) ng/ml Total Protein 5.4 L (6.4-8.2) gm/dl Albumin 1.9 L (3.4-5.0) gm/dl Globulin 3.5 (2.5-4.0) gm/dl Albumin/Globulin Ratio 0.5 L (0.9-2) Lipase 91 (73-393) U/L Procalcitonin (0-0.5) ng/ml Urine Color Urine Appearance (Clear) Urine pH (4.5-7.5) Ur Specific [place] (1.000-1.030) Urine Protein (Negative) Urine Glucose (UA) (Negative) Urine Ketones (Negative) Urine Blood (Negative) Urine Nitrite (Negative) Urine Bilirubin (Negative) Urine Urobilinogen (Negative) Ur Leukocyte Esterase (Negative) Urine WBC (Auto) (0-5) /hpf Urine RBC (Auto) (0-4) /hpf U Hyaline Cast (Auto) (0-5) /lpf U Epithel Cells (Auto) (0-5) /lpf Urine Bacteria (Auto) (Negative) 07/09/20 07/09/20 07/09/20 Range/Units 12:58 12:58 14:10 WBC (4.8-10.8) K/uL RBC (4.7-6.1) M/uL Hgb (14.0-18.0) g/dL Hct (42-52) % MCV (80-100) fL MCH (25-34) pg MCHC (32-36) g/dL RDW Std Deviation (36.4-46.3) fL RDW Coeff of Iris (11.5-14.5) % Plt Count (130-400) K/uL MPV (7.4-10.4) fL Immature Gran % (Auto) % Neut % (Auto) % Lymph % (Auto) % Page % (Auto) % Eos % (Auto) % Baso % (Auto) % Neut # (Auto) (1.4-6.5) K/uL Lymph # (Auto) (1.2-3.4) K/uL Page # (Auto) (0.11-0.59) K/uL Eos # (Auto) (0-0.5) K/uL Baso # (Auto) (0-0.2) K/uL Immature Gran # (Auto) (0.00-0.02) K/uL Poikilocytosis Echinocytes PT (9.0-12.0) Seconds INR (0.9-1.1) Sodium (136-145) mmol/L Potassium (3.5-5.1) mmol/L Chloride (98-107) mmol/L Carbon Dioxide (21-32) mmol/L Anion Gap (3-11) BUN (7-18) mg/dl Creatinine (0.6-1.4) mg/dl Est Cr Clr Drug Dosing ml/min Est GFR ( Amer) Est GFR (Non-Af Amer) BUN/Creatinine Ratio (10-20) Glucose (70-99) mg/dl Lactate 1.3 (0.4-2.0) mmol/L Calcium (8.5-10.1) mg/dl Magnesium (1.8-2.4) mg/dl Total Bilirubin (0.2-1) mg/dl AST (15-37) U/L ALT (12-78) U/L Alkaline Phosphatase (45-117) U/L Troponin I (0-0.045) ng/ml Total Protein (6.4-8.2) gm/dl Albumin (3.4-5.0) gm/dl Globulin (2.5-4.0) gm/dl Albumin/Globulin Ratio (0.9-2) Lipase (73-393) U/L Procalcitonin 0.68 H (0-0.5) ng/ml Urine Color Dark Yellow Urine Appearance Clear (Clear) Urine pH 5.0 (4.5-7.5) Ur Specific [place] 1.016 (1.000-1.030) Urine Protein Negative (Negative) Urine Glucose (UA) Negative (Negative) Urine Ketones Negative (Negative) Urine Blood Negative (Negative) Urine Nitrite Negative (Negative) Urine Bilirubin 1+ H (Negative) Urine Urobilinogen Negative (Negative) Ur Leukocyte Esterase Trace H (Negative) Urine WBC (Auto) 1-5 (0-5) /hpf Urine RBC (Auto) 5-10 H (0-4) /hpf U Hyaline Cast (Auto) 1-5 (0-5) /lpf U Epithel Cells (Auto) 0-5 (0-5) /lpf Urine Bacteria (Auto) Negative (Negative) Imaging Data Radiologist's Impression: CT OF THE ABDOMEN AND PELVIS WITH CONTRAST CLINICAL HISTORY: diarrhea, weakness COMPARISON STUDY: Abdominal ultrasound May 09, 2020. CT of the abdomen and pelvis January 12, 2006. TECHNIQUE: Following IV administration of 93 mL of Optiray-320, axial images of the abdomen and pelvis were obtained from the lung bases to the proximal femurs. Images were reviewed in the axial, sagittal, and coronal planes. IV contrast was administered without complication. Automated exposure control was utilized for the study. A dose lowering technique was utilized adhering to the principles of ALARA. CT DOSE: 1211.49 mGy.cm FINDINGS: Lung bases are unremarkable. Pacer leads are partially imaged. Moderate cardiomegaly is noted. No pneumatosis, free air or portal venous gas is present. A common bile duct stent is in place. There is pneumobilia. Note is made of dilatation of the main pancreatic duct which measures 9 mm in caliber. There is abrupt caliber change within the region of the pancreatic head. There is a subtle pancreatic head mass which measures approximately 2.8 cm. A few prominent peripancreatic lymph node measure up to 1 cm short axis diameter. There is mild gallbladder wall thickening. The gallbladder is not distended. No hepatic lesions are present. The spleen and adrenal glands are unremarkable. There is no hydronephrosis. There is no evidence for a bowel obstruction. Apparent diffuse colonic wall thickening is likely due to underdistention. No pelvic lymphadenopathy is present. No acute fracture or suspicious lesion is alma ntified within the visualized skeletal structures. There is extensive plaque of the abdominal aorta. IMPRESSION: 1. Pancreatic head mass with associated pancreatic ductal dilatation. This suggests pancreatic adenocarcinoma. This could be correlated with oncologic history. Common bile duct stent in place. Pneumobilia. 2. Mild gallbladder wall thickening however gallbladder not distended. These findings do not strongly suggest acute cholecystitis. 3. Mild diffuse colonic wall thickening which is likely due to underdistention. Nonspecific colitis could appear similar although is considered less likely. 4. A few prominent peripancreatic lymph nodes which are likely benign but can be assessed on subsequent exams to ensure stability. ACT 112: Negative or not required by law. Electronically signed by: Donny Gutierres M.D. 07/09/2020 3:59 PM ECG Data Attestation: I personally reviewed and interpreted this ECG as follows: Indication: + weakness Rate (beats per minute): 60 Rhythm: + other (paced) ECG Intervals/blocks: + First degree AV block, + Normal QRS and + Normal QT ECG [place]: + Normal ECG ST segments: + Nonspecific ST abnormalities MDM Narrative This is an 80-year-old male currently undergoing chemotherapy for pancreatic cancer who presents due to diarrhea, increasing weakness and subsequent falls over the last 2 to 3 days. Patient here is somnolent but arouses easily and able to answer all questions. Patient denied any coming abdominal pain, nausea or vomiting. Patient states he has had diarrhea with prior chemo infusions, states his last infusion was . Patient started on IV fluids after labs were drawn and sent, CT ordered as a precaution given patient's immunocompromise status. Stool cultures including C. difficile were ordered, however patient had not had any recurrent episodes of diarrhea here by the time of discussion with the hospitalist. Patient was found to be pancytopenic, although levels do not significantly change compared to prior due to his ongoing chemotherapy treatment. Patient's lactic acid reassuring, procalcitonin marginally elevated although no evidence of overt sepsis. I do not suspect ischemic colitis. No evidence of bowel obstruction. Patient carefully rehydrated. LFTs noted to be abnormal, however this is likely secondary to his pancreatic cancer. Several visible sees has previously been elevated also. Case discussed with hospitalist for ongoing monitoring and treatment. Patient did remain hemodynamically stable in the emergency room. An order was placed for continuous cardiac monitoring. The monitor shows a rate of _66 with _paced_ rhythm. Impression & Plan Weakness, Pancreatic cancer, Pancytopenia, Dehydration, Diarrhea, Falls Discharge Plan Visit Data Chief Complaint: Fall ED Provider: Karyn Beatty Discharge Problem: Weakness, Pancreatic cancer, Pancytopenia, Dehydration, Diarrhea, Falls Patient Disposition: Admitted As Inpatient Discharge Instructions Interventions: ED Discharge Assessment Last Done: 07/09/20 20:04 Discharge Problem: Pancreatic cancer Qualifiers: Pancreatic malignancy location: unspecified Qualified Code(s): C25.9 - Malignant neoplasm of pancreas, unspecified Diarrhea Qualifiers: Diarrhea type: unspecified type Qualified Code(s): R19.7 - Diarrhea, unspecified Falls Qualifiers: Encounter type: initial encounter Qualified Code(s): W19.XXXA - Unspecified fall, initial encounter
[2020-07-09 13:10] LABS: Hematocrit (blood only) 22.8 % (42-52); Hemoglobin 7.9 g/dL (14.0-18.0); Mean Corpuscular Hemoglobin 30.7 pg (25-34); Mean Corpuscular Hgb Conc 34.6 g/dL (32-36); Mean Corpuscular Volume 88.7 fL (80-100); Mean Platelet Volume 11.9 fL (7.4-10.4); Platelet Count 114 K/uL (130-400); RDW Standard Deviation 44.9 fL (36.4-46.3); Red Blood Count 2.57 M/uL (4.7-6.1); White Blood Count 3.43 K/uL (4.8-10.8)
[2020-07-09 13:20] LABS: INR 1.3 (0.9-1.1); Prothrombin Time 13.5 Seconds (9.0-12.0)
[2020-07-09 13:28] LABS: Alanine Aminotransferase 222 U/L (12-78); Albumin Level 1.9 gm/dl (3.4-5.0); Aspartate Aminotransferase 84 U/L (15-37); BUN Creatinine Ratio 29.2 (10-20); Blood Urea Nitrogen 31 mg/dl (7-18); Calcium 8.1 mg/dl (8.5-10.1); Carbon Dioxide 23 mmol/L (21-32); Chloride 98 mmol/L (98-107); Creatinine Clr Calc Pharmacy 65.7 ml/min; Est GFR (African American) 76.4; Glucose 215 mg/dl (70-99); Lipase 91 U/L (73-393); Magnesium 1.8 mg/dl (1.8-2.4); Potassium 4.2 mmol/L (3.5-5.1); Sodium 129 mmol/L (136-145)
[2020-07-09 13:33] LABS: Albumin Globulin Ratio 0.5 (0.9-2); Alkaline Phosphatase 168 U/L (45-117); Bilirubin,Total 1.6 mg/dl (0.2-1); Globulin 3.5 gm/dl (2.5-4.0); Total Protein 5.4 gm/dl (6.4-8.2); Troponin I < 0.015 ng/ml (0-0.045)
[2020-07-09 13:35] LABS: Basophils # (auto) 0.01 K/uL (0-0.2); Basophils % (auto) 0.3 %; Echinocytes 1+; Eosinophils # (auto) 0.01 K/uL (0-0.5); Eosinophils % (auto) 0.3 %; Immature Granulocytes # (auto) 0.12 K/uL (0.00-0.02); Immature Granulocytes % (auto) 3.5 %; Lymphocytes # (auto) 0.48 K/uL (1.2-3.4); Monocytes # (auto) 0.18 K/uL (0.11-0.59); Monocytes % (auto) 5.2 %; Neutrophils # (auto) 2.63 K/uL (1.4-6.5); Neutrophils % (auto) 76.7 %; Poikilocytosis Present
--- NOTE | 2020-07-09 13:43 | Electrocardiogram Report ---
Test Reason : Blood Pressure : / mmHG Vent. Rate : 060 BPM Atrial Rate : 060 BPM P-R Int : 256 ms QRS Dur : 092 ms QT Int : 434 ms P-R-T Axes : 043 069 044 degrees QTc Int : 434 ms Atrial-paced rhythm with prolonged AV conduction Abnormal ECG When compared with ECG of 04-JUL-2020 06:36, No significant change was found Confirmed by Torrey Barrera ([id number]) on 07/09/2020 1:42:50 PM Referred By: ED Confirmed By:Torrey Barrera
[2020-07-09] MEDS: LACTATED RINGER'S 1,000 ML IV SCH ×2 (13:50→21:54)
[2020-07-09 14:23] LABS: Appearance Urine Clear (Clear); Bacteria Urine Automated Negative (Negative); Blood Urine Negative (Negative); Color Urine Dark Yellow; Epithelial Cell Urine Auto 0-5 /lpf (0-5); Glucose Urine UA Negative (Negative); Ketones Urine Negative (Negative); Leukocyte Esterase Urine Trace (Negative); Nitrite Urine Negative (Negative); Protein Urine Negative (Negative); Specific Gravity Urine 1.016 (1.000-1.030); Urobilinogen Urine Negative (Negative)
[2020-07-09 14:27] LABS: Bilirubin Urine 1+ (Negative)
[2020-07-09] MEDS ORDERED: IOVERSOL 100ml IV ONE (15:38)
--- NOTE | 2020-07-09 16:02 | CT Scan Report ---
CT OF THE ABDOMEN AND PELVIS WITH CONTRAST CLINICAL HISTORY: diarrhea, weakness COMPARISON STUDY: Abdominal ultrasound May 09, 2020. CT of the abdomen and pelvis January 12, 2006 . TECHNIQUE: Following IV administration of 93 mL of Optiray-320, axial images of the abdomen and pelvi s were obtained from the lung bases to the proximal femurs. Images were reviewed in the axial, sagitt al, and coronal planes. IV contrast was administered without complication. Automated exposure contro l was utilized for the study. A dose lowering technique was utilized adhering to the principles of A MARGIE. CT DOSE: 1211.49 mGy.cm FINDINGS: Lung bases are unremarkable. Pacer leads are partially imaged. Moderate cardiomegaly is not ed. No pneumatosis, free air or portal venous gas is present. A common bile duct stent is in place. T here is pneumobilia. Note is made of dilatation of the main pancreatic duct which measures 9 mm in ca liber. There is abrupt caliber change within the region of the pancreatic head. There is a subtle kaba creatic head mass which measures approximately 2.8 cm. A few prominent peripancreatic lymph node true ure up to 1 cm short axis diameter. There is mild gallbladder wall thickening. The gallbladder is not distended. No hepatic lesions are present. The spleen and adrenal glands are unremarkable. There is no hydronephrosis. There is no evidence for a bowel obstruction. Apparent diffuse colonic wall thicke carlos is likely due to underdistention. No pelvic lymphadenopathy is present. No acute fracture or virginie picious lesion is identified within the visualized skeletal structures. There is extensive plaque of the abdominal aorta. IMPRESSION: 1. Pancreatic head mass with associated pancreatic ductal dilatation. This suggests pancreatic adenoc arcinoma. This could be correlated with oncologic history. Common bile duct stent in place. Pneumobil ia. 2. Mild gallbladder wall thickening however gallbladder not distended. These findings do not strongly suggest acute cholecystitis. 3. Mild diffuse colonic wall thickening which is likely due to underdistention. Nonspecific colitis c ould appear similar although is considered less likely. 4. A few prominent peripancreatic lymph nodes which are likely benign but can be assessed on subseque nt exams to ensure stability. ACT 112: Negative or not required by law. Electronically signed by: Donny Gutierres M.D. 07/09/2020 3:59 PM
--- NOTE | 2020-07-09 16:54 | History & Physical Report ---
Date of Service July 09, 2020 Assessment & Plan (1) Weakness generalized: Mr. Villarreal is an 80-year-old male with a history of CAD s/p CABG, Symptomatic Bradycardia s/p Permanent Pacemaker 2 years ago, Type 2 Diabetes Mellitus, Hypertension, Hyperlipidemia, GERD, BPH, Aortic Stenosis, Obstructive Sleep Apnea, Rheumatoid Arthritis, Carotid Artery Stenosis, Chemotherapy Induced Pancytopenia, and recently diagnosed Pancreatic Adenocarcinoma s/p Common Bile Duct Stent 05/14/2020 who has received Gemcitabine and Abraxane treatments on 06/21/20, 06/28/20, and 07/05/20. Since starting his chemotherapy treatments he has developed peripheral leg edema with reddened skin, diarrhea with appr oximately 4 loose stools per day, his appetite and oral intake are less, and he has developed significant weakness in his hips and legs. The weakness has caused him to fall, and he cannot get himself up again. He's had to crawl at times to get around his house. He recently had to call for help after he fell in the shower. Patient denies any lightheadedness, near syncope, or syncope. Suspect that his loose stools, peripheral edema/stasis dermatitis, poor appetite are secondary Gemcitabine and/or Abraxane -- both of which have a high incidence of these side effects. Additionally, he is anemic with a Hgb of 7.9 g/dl is likely also secondary to chemotherapy. (he was evaluated for heme-positive stools during his last hospitalization, Dr. Frederick felt that it was secondary to stent being deployed in the common bile duct, endoscopic exam was not recommended). As a result, patient has become weak, particularly in his legs and hips, and this has resulted in frequent falls, and inability to get himself back up. -- Admit to Med-Surg. -- Continue IV NSS x 1 more liter at 80 ml/hr. -- Type and cross match 2 units of leukocyte reduced PRBC, transfuse slowly. -- C.diff is pending. -- Add Loperamide as needed for loose stools. -- Check orthostatic vital signs. -- Compression stockings ordered. -- Monitor daily CBC with diff, BMP. -- Consult PT/OT. -- Fall precautions. (2) Antineoplastic chemotherapy induced pancytopenia: -- Hgb is 7.9 g/dl. -- Type and cross match 2 units of leukocyte reduced PRBC, transfuse slowly. (3) Anemia: -- As outlined above, transfuse. (4) Atherosclerotic heart disease of [place] coronary artery without angina pectoris: -- CABG x 4 Vessels. -- No angina pectoris or anginal equivalent symptoms. -- Continue beta iván, ARB, aspirin, and statin. -- Followed by Dr. Manuel. (5) Type 2 diabetes mellitus: -- Diet controlled Type 2 DM. -- HgbA1C is 7.3%. -- Consider starting pharmacologic treatment to reduce risk of osmotic diuresis and dehydration. -- Metformin does not appear to be a good option since he is already complaining of loose stools. History of Present Illness Chief Complaint: -- Weakness in Legs and Hips with resultant falls. -- Anemia with Hgb 7.9 g/dl. -- Pancreatic Cancer. -- Diarrhea. Primary Care Provider: Shemar Gonzalez Mr. Villarreal is an 80-year-old male with a history of CAD s/p CABG, Symptomatic Bradycardia s/p Permanent Pacemaker 2 years ago, Type 2 Diabetes Mellitus, Hypertension, Hyperlipidemia, GERD, BPH, Aortic Stenosis, Obstructive Sleep Apnea, Rheumatoid Arthritis, Carotid Artery Stenosis, Chemotherapy Induced Pancytopenia, and recently diagnosed Pancreatic Adenocarcinoma s/p Common Bile Duct Stent 05/14/2020 who has received Gemcitabine and Abraxane treatments on 06/21/20, 06/28/20, and 07/05/20. Since starting his chemotherapy treatments he has developed peripheral leg edema with reddened skin, diarrhea with approximately 4 loose stools per day, his appetite and oral intake are less, and he has developed significant weakness in his hips and legs. The weakness has caused him to fall, and he cannot get himself up again. He's had to crawl at times to get around his house. He recently had to call for help after he fell in the shower. Patient denies any lightheadedness, near syncope, or syncope. He denies any nausea or vomiting. He denies any melena or hematochezia. He denies any numbness or tingling of legs, thighs, or buttocks. He denies any history of lumbar disc disease or spinal stenosis. Patient denies any fevers, chills, cough, sputum production, shortness of breath, or chest discomfort. He has not had any angina pectoris. Patient was discharged from the hospital just last week for similar complaints. Allergies Allergy/AdvReac Type Severity Reaction Status Date / Time paroxetine [From Paxil] Allergy Unknown Unknown Verified 07/09/20 14:03 ranolazine [From Ranexa] Allergy Unknown URINARY Verified 07/09/20 14:03 LEAKING PROBLEMS PAULINO Inhibitors AdvReac Mild COUGH Verified 07/09/20 14:03 Sulfa (Sulfonamide AdvReac Mild SICK IN Verified 07/09/20 14:03 Antibiotics) STOMACH tamsulosin AdvReac Mild DIZZINESS Verified 07/09/20 14:03 Home Medications Medication Instructions Recorded Confirmed Type atorvastatin 40 mg PO HS 02/05/18 07/09/20 History hydroxychloroquine 200 mg PO QAM 02/05/18 07/09/20 History lorazepam 0.5 mg PO HS PRN 02/05/18 07/09/20 History metoprolol succinate 1.5 tab PO QAM 02/05/18 07/09/20 History pantoprazole [Protonix] 40 mg PO HS 02/05/18 07/09/20 History vitamin B complex 1 tab PO QAM 02/05/18 07/09/20 History levothyroxine 200 mcg capsule 200 mcg PO QAM 06/12/20 07/09/20 History omega-3 acid ethyl esters 1 gram 1 cap PO QAM 06/12/20 07/09/20 History capsule sertraline 25 mg tablet 25 mg PO HS 06/12/20 07/09/20 History baclofen 10 mg PO DAILY 07/02/20 07/09/20 History ferrous gluconate 324 mg PO QAM 07/02/20 07/09/20 History silodosin 4 mg PO DAILY 07/02/20 07/09/20 History aspirin 81 mg PO Q2D #0 tab 07/04/20 07/09/20 Rx chlorpromazine 25 mg PO Q6H PRN #10 tab 07/04/20 07/09/20 Rx famotidine 20 mg PO BID 30 Days #60 tab 07/04/20 07/09/20 Rx olmesartan-hydrochlorothiazide 0.25 tab PO QAM #0 tab 07/04/20 07/09/20 Rx [Benicar HCT] white petrolatum-mineral oil 1 applic EXT BID PRN #2568 g 07/04/20 07/09/20 Rx [Dermacerin] Past Med/Surg History Medical History Aortic stenosis MODERATE PER 05/2019 ECHO BPH w urinary obs/LUTS Cancer PANCREATIC CANCER Carotid stenosis History of known severe high-grade external carotid stenosis with less than 50% bilateral internal carotid artery stenosis per 02/2020 cardio note Chest pain NO RECENT ISSUES PER NURSING INTERVIEW CHF (congestive heart failure) Coronary artery disease S/p 4 vessel CABG Diabetes DIET MANAGED GERD (gastroesophageal reflux disease) Hyperlipidemia Hypertension Hypothyroidism Obstructive sleep apnea CPAP-OCC USE Pacemaker PLACED 2017- BIOTRONIK>BRADYCARDIA (CHRONOTROPIC INCOMPETENCE)/FOLLOWED BY Jered MANUEL Rheumatoid arthritis Surgical History Cardiac pacemaker in situ Difficult airway for intubation HEART CATH PROCEDURE- CATH PROCEDURES FOR 2009, 2011, 2015 REVIEWED- NO DOCUMENTATION OF AIRWAY ISSUES History of anesthesia reaction "GROGGY FOR A FEW DAYS" History of cardiac cath NO STENTS History of cataract surgery LEFT/RIGHT History of colonoscopy History of coronary artery bypass graft X 4 VESSELS 1999 History of esophagogastroduodenoscopy (EGD) History of tonsillectomy History of tooth extraction GUM SURGERY Port-A-Cath in place (06/19/20) Insertion of Mediport with Fluoroscopy Dr. Elam 06/19/2020 Family History Family/Other Family history of diabetes mellitus PATERNAL AUNT Father Heart disease Brother Cancer Mother Cancer Son Family history of diabetes mellitus Other Coronary heart disease Obstructive sleep apnea Social History Smoking Status: Former smoker Years Smoked: 5; Number of Years Since Quit: 50; Second Hand Exposure: No; Do You Dip or Chew Tobacco: No; Hx Alcohol Use: Yes Alcohol type: beer Hx Substance Use: No Preferred Language: Cambodian Communication Ability: Effective Hat Finisher Required: No Beliefs That Will Affect Care: None marital status: Current Living Situation: Spouse current occupational status: retired 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 He is in no acute distress. HEENT: Head is atraumatic, normocephalic. EOM's intact. Sclerae are anicteric. Facies symmetric. No perioral cyanosis. NECK: No JVD. JVP is at the level of the clavicle sitting upright. Carotid upstrokes are + 2 bilaterally. CHEST/LUNGS: Clear to auscultation throughout all lung gonzalez. No wheezes, rales, or crackles. CVS: S1 and S2 are regular at 80 bpm with a grade 2/6 basal systolic murmur radiates to the left sternal border and suprasternal notch. No obvious diastolic murmurs. No gallops or rubs. PMI is nondisplaced. No lifts, heaves, or thrills. No abdominal aortic or renal bruits. ABDOMINAL EXAM: Bowel sounds are present. No masses, organomegaly, or tenderness. No guarding or rigidity. EXTREMITIES: Plus 2 pitting edema to level of the proximal tibia. Skin of legs is erythematous, consistent with stasis dermatitis. No clubbing or cyanosis. Intact posterior radial pulses bilaterally. NEUROLOGIC EXAM: Patient is awake, alert, and oriented. Pleasant and cooperative. Answers questions appropriately. Speech is clear. Manual muscle testing shows 4/5 in major muscle groups of bilateral lower extremities. Sensation intact to light touch. Results & Data Results & Data ([facility]) Vital Signs (Past 12 Hours) Vital Signs Temp Pulse Resp BP Pulse Ox 07/09/20 14:01 69 23 123/50 L 07/09/20 14:00 72 24 07/09/20 13:56 75 19 07/09/20 13:55 75 20 121/50 L 07/09/20 13:30 75 24 07/09/20 13:00 75 21 07/09/20 12:42 72 23 07/09/20 12:33 61 20 124/68 07/09/20 11:39 36.4 C L 69 18 117/69 98 Laboratory Results Laboratory Results - last 24 hr 07/09/20 07/09/20 07/09/20 12:58 12:58 12:58 WBC 3.43 L RBC 2.57 L Hgb 7.9 L Hct 22.8 L MCV 88.7 MCH 30.7 MCHC 34.6 RDW Std Deviation 44.9 RDW Coeff of Iris 14.0 Plt Count 114 L MPV 11.9 H Immature Gran % (Auto) 3.5 Neut % (Auto) 76.7 Lymph % (Auto) 14.0 [place] % (Auto) 5.2 Eos % (Auto) 0.3 Baso % (Auto) 0.3 Neut # (Auto) 2.63 Lymph # (Auto) 0.48 L [place] # (Auto) 0.18 Eos # (Auto) 0.01 Baso # (Auto) 0.01 Immature Gran # (Auto) 0.12 H Poikilocytosis Present Echinocytes 1+ PT 13.5 H INR 1.3 H Sodium 129 L Potassium 4.2 Chloride 98 Carbon Dioxide 23 Anion Gap 8.0 BUN 31 H Creatinine 1.06 Est Cr Clr Drug Dosing 65.7 Est GFR ( Amer) 76.4 Est GFR (Non-Af Amer) 66.0 BUN/Creatinine Ratio 29.2 H Glucose 215 H Lactate Calcium 8.1 L Magnesium 1.8 Total Bilirubin 1.6 H AST 84 H ALT 222 H Alkaline Phosphatase 168 H Troponin I < 0.015 Total Protein 5.4 L Albumin 1.9 L Globulin 3.5 Albumin/Globulin Ratio 0.5 L Lipase 91 Procalcitonin Urine Color Urine Appearance Urine pH Ur Specific [place] Urine Protein Urine Glucose (UA) Urine Ketones Urine Blood Urine Nitrite Urine Bilirubin Urine Urobilinogen Ur Leukocyte Esterase Urine WBC (Auto) Urine RBC (Auto) U Hyaline Cast (Auto) U Epithel Cells (Auto) Urine Bacteria (Auto) 07/09/20 07/09/20 07/09/20 12:58 12:58 14:10 WBC RBC Hgb Hct MCV MCH MCHC RDW Std Deviation RDW Coeff of [place] Plt Count MPV Immature Gran % (Auto) Neut % (Auto) Lymph % (Auto) [place] % (Auto) Eos % (Auto) Baso % (Auto) Neut # (Auto) Lymph # (Auto) [place] # (Auto) Eos # (Auto) Baso # (Auto) Immature Gran # (Auto) Poikilocytosis Echinocytes PT INR Sodium Potassium Chloride Carbon Dioxide Anion Gap BUN Creatinine Est Cr Clr Drug Dosing Est GFR ( Amer) Est GFR (Non-Af Amer) BUN/Creatinine Ratio Glucose Lactate 1.3 Calcium Magnesium Total Bilirubin AST ALT Alkaline Phosphatase Troponin I Total Protein Albumin Globulin Albumin/Globulin Ratio Lipase Procalcitonin 0.68 H Urine Color Dark Yellow Urine Appearance Clear Urine pH 5.0 Ur Specific [place] 1.016 Urine Protein Negative Urine Glucose (UA) Negative Urine Ketones Negative Urine Blood Negative Urine Nitrite Negative Urine Bilirubin 1+ H Urine Urobilinogen Negative Ur Leukocyte Esterase Trace H Urine WBC (Auto) 1-5 Urine RBC (Auto) 5-10 H U Hyaline Cast (Auto) 1-5 U Epithel Cells (Auto) 0-5 Urine Bacteria (Auto) Negative Diagnostic Findings CT SCAN ABDOMEN PELVIS 07/09/2020: 1. Pancreatic head mass with associated pancreatic ductal dilatation. This sug gests pancreatic adenocarcinoma. This could be correlated with oncologic history. Common bile duct stent in place. Pneumobilia. 2. Mild gallbladder wall thickening however gallbladder not distended. These findings do not strongly suggest acute cholecystitis. 3. Mild diffuse colonic wall thickening which is likely due to underdistention. Nonspecific colitis could appear similar although is considered less likely. 4. A few prominent peripancreatic lymph nodes which are likely benign but can be assessed on subsequent exams to ensure stability. EKG 07/09/2020: -- Atrial-paced rhythm with prolonged AV conduction. -- Abnormal EKG. -- When compared with EKG of 04-JUL-2020 06:36 - No significant change was found. Medications Administered Lactated Ringer's (Lr) 1,000 mls @ 200 mls/hr IV .Q5H ANAIS Stop: 08/08/20 12:14 Last Admin: 07/09/20 13:50 Dose: 200 mls/hr Documented by: [id number] Discontinued Medications Ioversol (Ioversol 100ml) 93 ml IV ONCE ONE Stop: 07/09/20 15:39 Last Admin: 07/09/20 15:38 Dose: 93 ml Documented by: [id number] Supervising Physician Co-Signing Physician Notes I personally saw and examined the patient. I verified all alvarado points and agree with SHANNA Murcia with the following exceptions and/or additions: 80-year-old male with pancreatic adenocarcinoma presents with generalized weakness and recurrent falls. O/E HS1+2, 2/6 systolic murmur, Chest CTAB, generalized abdominal tenderness on deep palpation, no guarding or rigidity, bowel sounds present. 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 Both feet warm to touch. A/P Generalized weakness - suspect multifactorial with rheumatoid arthritis, anemia, generalized deconditioning with recent hospital stay, chemotherapy, diarrhea. No unilateral. Lower extremity > upper extremity however no back pain to suspect spinal stenosis. PT/OT evalok's. PG Care Time/CCT Total # of Minutes Spent Total Time Spent with Patient: Total time spent is greater than 50% in coordination of care (as documented) at patient's floor/unit and/or counseling patient: 45 Coding Level of Care Code 18676 Initial Inpt Care Lvl 3 Diagnoses Weakness generalized R53.1 Antineoplastic chemotherapy induced pancytopenia D61.810; T45.1X5A Anemia D64.9 Atherosclerotic heart disease of [place] coronary artery without angina pectoris I25.10 Type 2 diabetes mellitus E11.9 Time Spent (min) 65
[2020-07-09] MEDS ORDERED: ALUMINUM/MAGNESIUM SUSP 30 ML UDC PO PRN (17:33)
[2020-07-09] MEDS ORDERED: POLYETHYLENE (MIRALAX) 17 GM PACK PO PRN (17:33)
[2020-07-09] MEDS ORDERED: MAGNESIUM HYDROXIDE SUSP 30 ML UDC PO PRN (17:33)
[2020-07-09] MEDS ORDERED: ONDANSETRON INJ 2 MG/ML 2 ML VIAL IV PRN (17:33)
[2020-07-09] MEDS ORDERED: ZOLPIDEM TARTRATE 5 MG TAB PO PRN (17:33)
[2020-07-09] MEDS ORDERED: LOPERAMIDE HCL 2 MG CAP PO PRN (20:17)
[2020-07-09] MEDS ORDERED: LORazepam 0.5 MG TAB PO PRN (20:17)
[2020-07-09] MEDS ORDERED: EUCERIN CR 120 GM JAR EXT PRN (20:17)
[2020-07-09] MEDS ORDERED: SODIUM CHLORIDE 0.9% 1000ML 1,000 ML IV SCH (20:17)
[2020-07-09] MEDS ORDERED: SODIUM CHLORIDE 0.9% 250 ML IV PRN (20:17)
[2020-07-09] MEDS ORDERED: Nursing to Pharmacy Communication SCH (20:45)
[2020-07-09] MEDS: chlorproMAZINE HCL 25 MG TAB PO PRN (21:01)
[2020-07-09] MEDS: SERTRALINE HCL 50 MG TABLET PO SCH (21:02)
[2020-07-09] MEDS: PANTOprazole 40 MG TAB PO SCH (21:03)
[2020-07-09] MEDS: FAMOTIDINE 20 MG TAB PO SCH (21:03)
[2020-07-09] MEDS: ATORVASTATIN 40 MG TAB PO SCH (21:03)
[2020-07-09] MEDS: HEPARIN SOD 5,000 UNIT/0.5 ML VIAL SQ SCH (21:07)
[2020-07-09] MEDS ORDERED: GLUCOSE 10 TABS/TUBE PO PRN (23:46)
[2020-07-09] MEDS ORDERED: GLUCAGON FOR INJ 1 MG VIAL SQ PRN (23:46)
[2020-07-09] MEDS ORDERED: DEXTROSE 50% 50 ML SYRINGE IV PRN (23:46)
[2020-07-09] MEDS ORDERED: CARBOHYDRATES FOR HYPOGLYCEMIA PO PRN (23:46)
[2020-07-09] MEDS ORDERED: GLUCOSE 40% GEL 15 GM TUBE PO PRN (23:46)
[2020-07-10] MEDS ORDERED: Nursing to Pharmacy Communication SCH (01:15)
[2020-07-10] MEDS: INSULIN ASPART 100 UNITS/ML 3 ML PEN SC SCH ×5 (01:47→20:55)
[2020-07-10] MEDS: LEVOTHYROXINE SODIUM 200 MCG TABLET PO SCH (05:15)
[2020-07-10] MEDS ORDERED: INSULIN ASPART 100 UNITS/ML 3 ML PEN SC SCH (07:30)
[2020-07-10 08:14] LABS: Hematocrit (blood only) 28.1 % (42-52); Hemoglobin 9.7 g/dL (14.0-18.0); Mean Corpuscular Hgb Conc 34.5 g/dL (32-36); Mean Platelet Volume 11.3 fL (7.4-10.4); Nucleated RBC # (auto) 0.03 K/uL (0-0); Nucleated RBC % (auto) 0.6 %; Platelet Count 102 K/uL (130-400); RDW Coefficient of Variation 13.6 % (11.5-14.5); RDW Standard Deviation 43.1 fL (36.4-46.3); Red Blood Count 3.23 M/uL (4.7-6.1)
[2020-07-10] MEDS: FAMOTIDINE 20 MG TAB PO SCH ×2 (08:36→20:51)
[2020-07-10] MEDS: BACLOFEN 10 MG TAB PO SCH (08:36)
[2020-07-10] MEDS: FERROUS GLUCONATE 324 MG TAB PO SCH (08:36)
[2020-07-10] MEDS: OMEGA-3 (PURIFIED FISH OIL) 1 GM CAP PO SCH (08:36)
[2020-07-10] MEDS: METOPROLOL SUCC 25MG EXT REL TAB PO SCH (08:37)
[2020-07-10] MEDS: VITAMIN B COMPLEX TAB PO SCH (08:37)
[2020-07-10] MEDS: chlorproMAZINE HCL 25 MG TAB PO PRN (08:37)
[2020-07-10] MEDS: HEPARIN SOD 5,000 UNIT/0.5 ML VIAL SQ SCH ×2 (08:39→20:50)
[2020-07-10] MEDS: HYDROXYCHLOROQUINE SULFATE 200 MG TAB PO SCH (08:39)
[2020-07-10] MEDS ORDERED: hydroCHLOROthiazide 25 MG TAB PO SCH (09:00)
[2020-07-10] MEDS ORDERED: ASPIRIN 81 MG ECTAB PO SCH (09:00)
[2020-07-10] MEDS: OLMESARTAN MEDOXOMIL 5 MG TAB PO SCH (10:14)
--- NOTE | 2020-07-10 14:47 | Hospitalist Progress Note ---
Date of Service July 10, 2020 Assessment & Plan (1) Weakness generalized: Likely multifactorial from cancer, chemotherapy, pancytopenia. - Transfused 2 units PRBCs on 07/09 - C.diff was negative on 07/10. - Added loperamide as needed for loose stools. - Compression stockings ordered. - Follow PT/OT recs - Hgb better today, but still weak. (2) Antineoplastic chemotherapy induced pancytopenia: Hgb was 7.9 g/dl on admission. - PRBCs as above - No tx indicated for platelets. (3) Pancreatic cancer: Follows with Dr. Frost at [facility]. On gemcitabine/Abraxane on from my reading his oncology notes. - On chemotherapy precautions - No acute oncologic needs at this time. (4) Atherosclerotic heart disease of [place] coronary artery without angina pectoris: CABG x 4 Vessels. No angina pectoris or anginal equivalent symptoms. - Continue beta iván, ARB, aspirin, and statin. - Followed by Dr. Manuel - No need for inpatient consult at this time. (5) Type 2 diabetes mellitus: Diet controlled Type 2 DM. HgbA1C is 7.3%. - Hold metformin - Sliding scale insulin (6) Hypothyroidism: TSH was 3.7 in 06/2020. No signs/symptoms of hypo-/hyperthyroidism. - Continue home Synthroid 200 mcg (7) DVT prophylaxis: Heparin 5,000 units SQ Q12h Admission and Anticipated Discharge Date Admission Date: July 09, 2020 Subjective Still feels very weak, despite the blood. Reports no fevers/chills, chest pain, shortness of breath, abdominal pain, nausea, or vomiting. Physical Exam Constitutional: WD/WN, vitals as above Eyes: EOM intact bilaterally; no conjunctival abnormality ENMT: external ear and nose normal, oropharynx normal Neck: trachea midline, no thyromegaly normal visual inspection Respiratory: normal respiratory effort, lungs clear to auscultation no respiratory distress Cardiovascular: RRR, no murmur, no edema Gastrointestinal (Abdomen): Inspection/Auscultation: abdomen normal to inspection; abdomen not distended Musculoskeletal: no cyanosis or clubbing, extremities motor strength 5/5 Skin: no rashes, warm and dry Neurologic: moves all extremities and awake Psychiatric: Orientation: alert, oriented to person and cooperative Results & Data Results & Data ([facility]) Vital Signs (Past 12 Hours) Vital Signs Temp Pulse Pulse Resp BP BP Pulse Ox 07/10/20 07:43 36.8 C 70 18 134/53 L 96 07/10/20 06:40 36.5 C 59 L 18 125/63 07/10/20 06:07 36.5 C 67 16 111/49 L 97 07/10/20 05:02 36.5 C 66 16 125/61 95 07/10/20 04:00 36.9 C 72 16 114/46 L 96 07/10/20 03:30 36.8 C 58 L 16 126/53 L 95 07/10/20 03:16 36.6 C 63 18 133/62 95 07/10/20 02:55 36.4 C L 59 L 114/56 L 94 07/10/20 02:50 36.4 C L 58 L 114/56 L 94 PG Care Time/CCT Total # of Minutes Spent Total Time Spent with Patient: Total time spent is greater than 50% in coordination of care (as documented) at patient's floor/unit and/or counseling patient: Coding Level of Care Code 36003 Subseq Hosp Care Lvl 3 Diagnoses Weakness generalized R53.1 Antineoplastic chemotherapy induced pancytopenia D61.810; T45.1X5A Pancreatic cancer C25.9 Pancreatic malignancy location: unspecified Atherosclerotic heart disease of [place] coronary artery without angina pectoris I25.10 Type 2 diabetes mellitus E11.9 Hypothyroidism E03.9 DVT prophylaxis Z29.9 (1) Pancreatic cancer Pancreatic malignancy location: unspecified Qualified Code(s): C25.9 - Malignant neoplasm of pancreas, unspecified
[2020-07-10 14:52] LABS: Albumin Globulin Ratio 0.5 (0.9-2); Albumin Level 1.7 gm/dl (3.4-5.0); BUN Creatinine Ratio 24.7 (10-20); Bilirubin,Total 1.9 mg/dl (0.2-1); Est GFR (African American) 103.9; Est GFR (Non-African American) 89.7; Globulin 3.5 gm/dl (2.5-4.0); Magnesium 1.7 mg/dl (1.8-2.4); Total Protein 5.2 gm/dl (6.4-8.2)
[2020-07-10] MEDS: MAGNESIUM SULFATE / D5W 1 GM/100 ML BAG IV SCH ×3 (15:54→19:47)
[2020-07-10] MEDS ORDERED: COUGH DROP (SUGAR FREE) LOZ 24 LOZ/1 BOX BUCCAL PRN (17:56)
[2020-07-10] MEDS: ATORVASTATIN 40 MG TAB PO SCH (20:50)
[2020-07-10] MEDS: PANTOprazole 40 MG TAB PO SCH (20:50)
[2020-07-10] MEDS: SERTRALINE HCL 50 MG TABLET PO SCH (20:51)
[2020-07-10 22:58] VITALS: O2SAT 94
[2020-07-11] MEDS: ACETAMINOPHEN 325 MG TAB PO PRN ×2 (04:33→09:07)
[2020-07-11] MEDS: LEVOTHYROXINE SODIUM 200 MCG TABLET PO SCH (05:32)
[2020-07-11 06:09] LABS: Hematocrit (blood only) 28.1 % (42-52); Hemoglobin 9.7 g/dL (14.0-18.0); Mean Corpuscular Hemoglobin 30.2 pg (25-34); Mean Corpuscular Hgb Conc 34.5 g/dL (32-36); Mean Corpuscular Volume 87.5 fL (80-100); Mean Platelet Volume 11.5 fL (7.4-10.4); Platelet Count 102 K/uL (130-400); RDW Coefficient of Variation 14.4 % (11.5-14.5); RDW Standard Deviation 45.2 fL (36.4-46.3); Red Blood Count 3.21 M/uL (4.7-6.1)
[2020-07-11 06:42] LABS: Magnesium 1.8 mg/dl (1.8-2.4); Phosphorus 2.7 mg/dl (2.5-4.9)
[2020-07-11 07:38] VITALS: BP 122/64; TEMP 97.9
[2020-07-11] MEDS: FERROUS GLUCONATE 324 MG TAB PO SCH (08:40)
[2020-07-11] MEDS: HYDROXYCHLOROQUINE SULFATE 200 MG TAB PO SCH (08:40)
[2020-07-11] MEDS: METOPROLOL SUCC 25MG EXT REL TAB PO SCH (08:40)
[2020-07-11] MEDS: FAMOTIDINE 20 MG TAB PO SCH (08:40)
[2020-07-11] MEDS: OMEGA-3 (PURIFIED FISH OIL) 1 GM CAP PO SCH (08:40)
[2020-07-11] MEDS: OLMESARTAN MEDOXOMIL 5 MG TAB PO SCH (08:40)
[2020-07-11] MEDS: VITAMIN B COMPLEX TAB PO SCH (08:41)
[2020-07-11] MEDS: HEPARIN SOD 5,000 UNIT/0.5 ML VIAL SQ SCH (08:41)
[2020-07-11] MEDS: BACLOFEN 10 MG TAB PO SCH (08:42)
[2020-07-11] MEDS: INSULIN ASPART 100 UNITS/ML 3 ML PEN SC SCH ×2 (09:17→12:52)
--- NOTE | 2020-07-11 09:30 | Palliative Care Consultation ---
Date of Consultation July 11, 2020 Assessment & Plan (1) Weakness generalized: with anemia, anorexia most likely related to chemotherapy. He is interested in having PT and home care when discharged to try to build up his strength. (2) Palliative care encounter: We discussed how Mr. Villarreal is coping with his illness. He is hopeful that he will have some benefit from the chemotherapy though he realizes that he may not be able to tolerate surgery. He wants to continue treatments as long as his physician feels that he is benefitting. He does understand that he will likely from this cancer at some point. He tells me that he is not afraid of this and worries most about his . His greatest enjoyment is spending time with his family and he feels that at this time he wants to do what he can to allow him as much time with his family as possible. He is agreeable to palliative care following as an outpatient for support moving forward. I tried to call his to discuss with her but there was not answer. Discussed with Dr. Crystal. (3) Pancreatic cancer: Pancreatic malignancy location: unspecified Qualified Code(s): C25.9 - Malignant neoplasm of pancreas, unspecified (4) Antineoplastic chemotherapy induced pancytopenia: (5) Falls: Encounter type: initial encounter Qualified Code(s): W19.XXXA - Unspecified fall, initial encounter History of Present Illness Reason for Consultation: goals of care Requesting Physician: Dr. Crystal Attending Physician: Feliberto Crystal MD History of Present Illness 80 yo gentleman recently diagnosed with pancreatic cancer who has had three treatments with abraxane and gemcitabine. He was hospitalized last month with weakness and hypotension and has been readmitted with same symptoms after a fall. He has comorbid CAD, diabetes, hypertension, hyperlipidemia, GERD, BPH, aortic stenosis, rheumatoid arthritis and NATASHA. He has had diarrhea likely related to chemotherapy and has C diff pending. He has had anemia, anorexia with protein calorie malnutrition with an albumin of 1.7. He feels that diarrhea is improving and he has had one BM this morning. He notes that he feels dizzy when changing position but feels steady on his feet when he is up and moving. He has had some pain in his left jaw with chewing but denies dental problems. He feels that this is what is impacting his oral intake. Allergies Allergy/AdvReac Type Severity Reaction Status Date / Time paroxetine [From Paxil] Allergy Unknown Unknown Verified 07/09/20 14:03 ranolazine [From Ranexa] Allergy Unknown URINARY Verified 07/09/20 14:03 LEAKING PROBLEMS PAULINO Inhibitors AdvReac Mild COUGH Verified 07/09/20 14:03 Sulfa (Sulfonamide AdvReac Mild SICK IN Verified 07/09/20 14:03 Antibiotics) STOMACH tamsulosin AdvReac Mild DIZZINESS Verified 07/09/20 14:03 Home Medications Medication Instructions Recorded Confirmed Type atorvastatin 40 mg PO HS 02/05/18 07/09/20 History hydroxychloroquine 200 mg PO QAM 02/05/18 07/09/20 History lorazepam 0.5 mg PO HS PRN 02/05/18 07/09/20 History metoprolol succinate 1.5 tab PO QAM 02/05/18 07/09/20 History pantoprazole [Protonix] 40 mg PO HS 02/05/18 07/09/20 History vitamin B complex 1 tab PO QAM 02/05/18 07/09/20 History levothyroxine 200 mcg capsule 200 mcg PO QAM 06/12/20 07/09/20 History omega-3 acid ethyl esters 1 gram 1 cap PO QAM 06/12/20 07/09/20 History capsule sertraline 25 mg tablet 25 mg PO HS 06/12/20 07/09/20 History baclofen 10 mg PO DAILY 07/02/20 07/09/20 History ferrous gluconate 324 mg PO QAM 07/02/20 07/09/20 History silodosin 4 mg PO DAILY 07/02/20 07/09/20 History Dermacerin 1 applic EXT BID PRN #2568 g 07/04/20 07/09/20 Rx aspirin 81 mg PO Q2D #0 tab 07/04/20 07/09/20 Rx chlorpromazine 25 mg PO Q6H PRN #10 tab 07/04/20 07/09/20 Rx famotidine 20 mg PO BID 30 Days #60 tab 07/04/20 07/09/20 Rx olmesartan-hydrochlorothiazide 0.25 tab PO QAM #0 tab 07/04/20 07/09/20 Rx [Benicar HCT] Patient History Medical History Aortic stenosis MODERATE PER 05/2019 ECHO BPH w urinary obs/LUTS Cancer PANCREATIC CANCER Carotid stenosis History of known severe high-grade external carotid stenosis with less than 50% bilateral internal carotid artery stenosis per 02/2020 cardio note Chest pain NO RECENT ISSUES PER NURSING INTERVIEW CHF (congestive heart failure) Coronary artery disease S/p 4 vessel CABG Diabetes DIET MANAGED GERD (gastroesophageal reflux disease) Hyperlipidemia Hypertension Hypothyroidism Obstructive sleep apnea CPAP-OCC USE Pacemaker PLACED 2017- BIOTRONIK>BRADYCARDIA (CHRONOTROPIC INCOMPETENCE)/FOLLOWED BY DR. COPPOLA Rheumatoid arthritis Surgical History Cardiac pacemaker in situ Difficult airway for intubation HEART CATH PROCEDURE- CATH PROCEDURES FOR 2009, 2011, 2015 REVIEWED- NO DOCUMENTATION OF AIRWAY ISSUES History of anesthesia reaction "GROGGY FOR A FEW DAYS" History of cardiac cath NO STENTS History of cataract surgery LEFT/RIGHT History of colonoscopy History of coronary artery bypass graft X 4 VESSELS 1999 History of esophagogastroduodenoscopy (EGD) History of tonsillectomy History of tooth extraction GUM SURGERY Port-A-Cath in place (06/19/20) Insertion of Mediport with Fluoroscopy Dr. Elam 06/19/2020 Family History Family/Other Family history of diabetes mellitus PATERNAL AUNT Father Heart disease Brother Cancer Mother Cancer Son Family history of diabetes mellitus Other Coronary heart disease Obstructive sleep apnea Social History Smoking Status: Former smoker Years Smoked: 5; Number of Years Since Quit: 50; Second Hand Exposure: No; Do You Dip or Chew Tobacco: No; Hx Alcohol Use: Yes Alcohol type: beer Hx Substance Use: No Preferred Language: Kyrgyz Communication Ability: Effective Appliquer Zigzag Required: No Beliefs That Will Affect Care: None marital status: Current Living Situation: Spouse current occupational status: retired 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 Other Information That Helps Us Care for You: No Feels Safe at Home: Yes Safety Concerns: Feels Safe At This Time Assistive Devices: Walker Review of Systems Review of Systems: [place] Symptom Assessment Scale Pain 1/3 Nausea 0/3 Dyspnea 0/3 Fatigue 2/3 Anorexia 1/3 Anxiety 0/3 Palliative Performance Score 50% Physical Exam Constitutional: no acute distress ENMT: Nose: + facial tenderness Respiratory: normal respiratory effort; no labored breathing Gastrointestinal (Abdomen): Percussion/Palpation: abdomen nontender Neurologic: not confused Psychiatric: Orientation: alert and oriented x 3 Results & Data ([facility]) Vital Signs (Past 12 Hours) Vital Signs Temp Pulse Resp BP Pulse Ox 07/11/20 07:37 97.9 F 60 18 122/64 94 07/10/20 22:57 97.7 F 65 18 127/62 94 PG Care Time/CCT Total # of Minutes Spent Total Time Spent with Patient: Total time spent is greater than 50% in coordination of care (as documented) at patient's floor/unit and/or counseling patient: Total time spent 65 minutes with more than 50% of time spent on discussing goals of care, support and coordination of care Coding Level of Care Code 24816 Inpt Consult Level 3 Diagnoses Weakness generalized R53.1 Palliative care encounter Z51.5 Pancreatic cancer C25.9 Pancreatic malignancy location: unspecified Antineoplastic chemotherapy induced pancytopenia D61.810; T45.1X5A Falls W19.XXXA Encounter type: initial encounter
[2020-07-11 14:24] VITALS: PULSE 69
--- NOTE | 2020-07-11 16:03 | Discharge Summary ---
Date of Service July 11, 2020 Admission HPI Per Admitting Provider Mr. Villarreal is an 80-year-old male with a history of CAD s/p CABG, Symptomatic Bradycardia s/p Permanent Pacemaker 2 years ago, Type 2 Diabetes Mellitus, Hypertension, Hyperlipidemia, GERD, BPH, Aortic Stenosis, Obstructive Sleep Apnea, Rheumatoid Arthritis, Carotid Artery Stenosis, Chemotherapy Induced Pancytopenia, and recently diagnosed Pancreatic Adenocarcinoma s/p Common Bile Duct Stent 05/14/2020 who has received Gemcitabine and Abraxane treatments on 06/21/20, 06/28/20, and 07/05/20. Since starting his chemotherapy treatments he has developed peripheral leg edema with reddened skin, diarrhea with approximately 4 loose stools per day, his appetite and oral intake are less, and he has developed significant weakness in his hips and legs. The weakness has caused him to fall, and he cannot get himself up again. He's had to crawl at times to get around his house. He recently had to call for help after he fell in the shower. Patient denies any lightheadedness, near syncope, or syncope. He denies any nausea or vomiting. He denies any melena or hematochezia. He denies any numbness or tingling of legs, thighs, or buttocks. He denies any history of lumbar disc disease or spinal stenosis. Patient denies any fevers, chills, cough, sputum production, shortness of breath, or chest discomfort. He has not had any angina pectoris. Patient was discharged from the hospital just last week for similar complaints. Principal Diagnosis Dehydration and anemia from chemotherapy and cancer Discharge Exam Constitutional WD/WN, vitals as above Eyes EOM intact bilaterally; no conjunctival abnormality ENMT external ear and nose normal, oropharynx normal Neck trachea midline, no thyromegaly normal visual inspection Respiratory normal respiratory effort, lungs clear to auscultation no respiratory distress Cardiovascular RRR, no murmur, no edema Gastrointestinal (Abdomen) Inspection/Auscultation: abdomen normal to inspection; abdomen not distended Musculoskeletal no cyanosis or clubbing, extremities motor strength 5/5 Skin no rashes, warm and dry Neurologic moves all extremities and awake Psychiatric Orientation: alert, oriented to person and cooperative Discharge Data Allergies Allergy/AdvReac Type Severity Reaction Status Date / Time paroxetine [From Paxil] Allergy Unknown Unknown Verified 07/09/20 14:03 ranolazine [From Ranexa] Allergy Unknown URINARY Verified 07/09/20 14:03 LEAKING PROBLEMS PAULINO Inhibitors AdvReac Mild COUGH Verified 07/09/20 14:03 Sulfa (Sulfonamide AdvReac Mild SICK IN Verified 07/09/20 14:03 Antibiotics) STOMACH tamsulosin AdvReac Mild DIZZINESS Verified 07/09/20 14:03 Consultations 07/10/20 14:57 Consult Palliative Care Routine Ordered Studies 07/09/20 14:24 CT abd pelvis IV con only Stat Hospital Course (1) Weakness generalized: Likely multifactorial from cancer, chemotherapy, pancytopenia. - Transfused 2 units PRBCs on 07/09 - C.diff was negative on 07/10. - Added loperamide as needed for loose stools. - Compression stockings ordered. - Follow PT/OT recs - Hgb stable at 9.7 on 07/11. The patient felt somewhat better and was ready to go home. Will follow up with oncology at next scheduled appointment. (2) Antineoplastic chemotherapy induced pancytopenia: Hgb was 7.9 g/dl on admission. - PRBCs as above - No tx indicated for platelets. They were > 100k on discharge. (3) Pancreatic cancer: Follows with Dr. Frost at [facility]. On gemcitabine/Abraxane on from my reading his oncology notes. - On chemotherapy precautions - No acute oncologic needs at this time. - Palliative care consulted. He is realistic that his overall prognosis is not good, but would like to continue treatment. He will follow up with palliative care as outpatient. (4) Atherosclerotic heart disease of [place] coronary artery without angina pectoris: CABG x 4 Vessels. No angina pectoris or anginal equivalent symptoms. - Continue beta iván, ARB, aspirin, and statin. - Followed by Dr. Manuel - No need for inpatient consult at this time. (5) Type 2 diabetes mellitus: Diet controlled Type 2 DM. HgbA1C is 7.3%. - Hold metformin - Sliding scale insulin (6) Hypothyroidism: TSH was 3.7 in 06/2020. No signs/symptoms of hypo-/hyperthyroidism. - Continue home Synthroid 200 mcg (7) DVT prophylaxis: Heparin 5,000 units SQ Q12h Total Time Total Time Spent Total Time Spent (In Minutes): 35 Discharge Plan Discharge Items Patient Disposition: Home - Home Health Services Reason For Visit: FALLS Discharge Diagnosis: Falls, anemia Activity: Resume your previous activity Non-emergency contact: Primary Care Provider and Oncologist Call non-emergency contact if: your symptoms worsen Follow-up/Referrals: Karyn Mcgraw MD [Physician] - (Please follow up with Dr. Mcgraw as needed for palliative discussions. Office # [phone]) Shemar Gonzalez [Primary Care Provider] - Jefferson Frost MD [Physician] - 07/18/20 10:30 am (Please follow up with Dr. Frost or his associates in the next week for further cancer follow up.) Diet: Regular Addtl Attending Provider Instructions: Mr. Villarreal, you were admitted to the hospital with a fall. You were found to have anemia which is probably due to the cancer and chemotherapy that is being used to treat the cancer. On top of this, you had some evidence of dehydration. We gave you two units of blood and some fluids which helped you feel better. On discharge, your hemoglobin is 9.7 which is overall pretty good for you recently and near your baseline. Please see Dr. Frost in the clinic in the next week to discuss further care for your cancer. Pending Studies at Discharge: No Stand-Alone Forms: My [facility] re[employer] Education, Smoking Cessation Medications and DC Order Prescriptions: Continued sertraline [Zoloft] 25 mg tablet 25 mg PO HS RF: 0 omega-3 acid ethyl esters 1 gram capsule 1 cap PO QAM RF: 0 levothyroxine 200 mcg capsule 200 mcg PO QAM RF: 0 atorvastatin 80 mg Tablet 40 mg PO HS RF: 0 lorazepam 0.5 mg Tablet 0.5 mg PO HS PRN (Reason: Sleep) RF: 0 pantoprazole [Protonix] 40 mg Tablet,Delayed Release (Dr/Ec) 40 mg PO HS RF: 0 vitamin B complex Tablet 1 tab PO QAM RF: 0 metoprolol succinate 25 mg Tablet Extended Release 24 Hr 1.5 tab PO QAM RF: 0 hydroxychloroquine 200 mg Tablet 200 mg PO QAM RF: 0 baclofen 10 mg tablet 10 mg PO DAILY RF: 0 silodosin 4 mg capsule 4 mg PO DAILY RF: 0 ferrous gluconate 324 mg (37.5 mg iron) Tablet 324 mg PO QAM RF: 0 famotidine 20 mg Tablet 20 mg PO BID 30 Days Qty: 60 RF: 0 Dermacerin Cream 1 applic EXT BID PRN (Reason: dry skin) Qty: 2568 RF: 0 olmesartan-hydrochlorothiazide [Benicar HCT] 40-12.5 mg tablet 0.25 tab PO QAM Qty: 0 RF: 0 chlorpromazine 25 mg tablet 25 mg PO Q6H PRN (Reason: hiccups) Qty: 10 RF: 0 aspirin 81 mg Tablet,Delayed Release (Dr/Ec) 81 mg PO Q2D Qty: 0 RF: 0 Discharge Orders: Discharge Order (Routine); Ordered 07/11/20 Ordered By: Feliberto Crystal Admission Data Admit Date/Time: 07/09/20 17:33 Attending Provider: Feliberto Crystal Admit Provider: Mayo Carpenter Primary Care Provider: Shemar Gonzalez Other Providers: Karyn Mcgraw Other Interventions: Discharge Summary Assessment (RN) Last Done: 07/11/20 14:23 Coding Level of Care Code D/C Day Management >30 mins Diagnoses Weakness generalized R53.1 Antineoplastic chemotherapy induced pancytopenia D61.810; T45.1X5A Pancreatic cancer C25.9 Pancreatic malignancy location: unspecified Atherosclerotic heart disease of [place] coronary artery without angina pectoris I25.10 Type 2 diabetes mellitus E11.9 Hypothyroidism E03.9 DVT prophylaxis Z29.9
== END 2020-07-11 15:27 | disposition home health service (06) | DRG 393 ==
LOC: ED 11:52 → SUATTDRO 17:33 → 3N 17:33
DX: E86.0 Dehydration; T45.1X5A Adverse effect of antineoplastic and immunosuppressive drugs, initial encounter; K52.1 Toxic gastroenteritis and colitis; R53.1 Weakness; Z79.82 Long term (current) use of aspirin; I10 Essential (primary) hypertension; M06.9 Rheumatoid arthritis, unspecified; K21.9 Gastro-esophageal reflux disease without esophagitis; Z95.0 Presence of cardiac pacemaker; D61.810 Antineoplastic chemotherapy induced pancytopenia; N40.0 Benign prostatic hyperplasia without lower urinary tract symptoms; I35.0 Nonrheumatic aortic (valve) stenosis; E11.9 Type 2 diabetes mellitus without complications; C25.9 Malignant neoplasm of pancreas, unspecified; I25.10 Atherosclerotic heart disease of native coronary artery without angina pectoris; E78.5 Hyperlipidemia, unspecified; Z87.891 Personal history of nicotine dependence; G47.33 Obstructive sleep apnea (adult) (pediatric)